=== PATIENT | female | born 1995 | race African-American/Black ===

== ENCOUNTER 2017-09-05 10:18 | Emergency (ER) | payer OTHER ==
[~2017-09-05] VITALS: Ht 167.6 cm; Wt 60.0 kg
[2017-09-05 10:22] VITALS: BP 100/56; PULSE 76; RESP 16; TEMP 98.6; O2SAT 98
[2017-09-05] MEDS ORDERED: [UNRECOGNIZED DRUG - REMARK] (10:35)
[2017-09-05] MEDS ORDERED: [UNRECOGNIZED DRUG - REMARK] (10:48)
--- NOTE | 2017-09-05 11:00 | PD ---
HPI Chief Complaint: Medical Clearance Time Seen by Provider: 10:42 Travel History International Travel<30 days: No Contact w/Intl Traveler<30days: No Traveled to known affect area: No History of Present Illness HPI The patient was seen and examined in the presence of the nurse. This patient complains of swelling in her feet and ankles. She's had it for several months. She denies injury or fever. No swelling of the upper extremities or abdomen. She says that she takes a medication for her heart but has no idea what it is. Prescribed by somebody in [place]. She is currently living here in [facility] with her grandmother. He reports that she has history of heart murmur. She denies chest pain or shortness of breath. Severity is mild to moderate. No alleviating factors. No exacerbating factors. PFSH Past Medical History Asthma: Yes Cardiovascular Problems: Yes (heart murmur) Influenza Vaccination: No ?: Not LMP: 08/22/17 Social History Alcohol Use: No Tobacco Use: No Substance Use: No Allergies-Medications (Allergen,Severity, Reaction): Coded Allergies: No Known Allergies (Unverified , 09/05/17) Reported Meds & Prescriptions Reported Meds & Active Scripts Active Reported [unk heart pill] DAILY [unk inhaler] Review of Systems General / Constitutional: No: Fever Eyes: No: Visual changes HENT: No: Headaches Cardiovascular: Positive: Edema, No: Chest Pain or Discomfort Respiratory: No: Shortness of Breath Gastrointestinal: No: Abdominal Pain Genitourinary: No: Dysuria Musculoskeletal: Positive: Edema, No: Pain Skin: No Rash Neurologic: No: Weakness Psychiatric: No: Depression Endocrine: No: Polydipsia Hematologic/Lymphatic: No: Easy Bruising Physical Exam Narrative GENERAL: Well-nourished, well-developed patient in no apparent distress. SKIN: Focused skin assessment reveals no rash and nodules. Skin is Warm and dry. HEAD: Atraumatic. Normocephalic. EYES: Pupils equal and round. No scleral icterus. No injection or drainage. ENT: No nasal bleeding or discharge. Mucous membranes pink and moist. NECK: Trachea midline. No JVD. CARDIOVASCULAR: Regular rate and rhythm. Prominent systolic murmur heard. RESPIRATORY: No accessory muscle use. Clear to auscultation. Breath sounds equal bilaterally. GASTROINTESTINAL: Abdomen soft, non-tender, nondistended. Hepatic and splenic margins not palpable. MUSCULOSKELETAL: No obvious deformities. No clubbing. No cyanosis. Symmetric edema of the distal half of the lower leg including ankle and foot. No erythema or warmth or calf tenderness. Edema is mild NEUROLOGICAL: Awake and alert. No obvious cranial nerve deficits. Motor grossly within normal limits. Normal speech. PSYCHIATRIC: Appropriate mood and affect; insight and judgment normal. Data Data Last Documented VS Vital Signs Date Time Temp Pulse Resp B/P (MAP) Pulse Ox O2 Delivery O2 Flow Rate FiO2 09/05/17 10:22 98.6 76 16 100/56 (71) 98 Orders Orders Iv Access Insert/Monitor (09/05/17 10:53) Complete Blood Count With Diff (09/05/17 10:53) Comprehensive Metabolic Panel (09/05/17 10:53) Beta Hcg (Quant/Titer) (09/05/17 10:53) Labs Laboratory Tests Test 09/05/17 11:00 White Blood Count 3.7 TH/MM3 Red Blood Count 4.08 MIL/MM3 Hemoglobin 10.2 GM/DL Hematocrit 31.7 % Mean Corpuscular Volume 77.7 FL Mean Corpuscular Hemoglobin 25.0 PG Mean Corpuscular Hemoglobin Concent 32.2 % Red Cell Distribution Width 16.2 % Platelet Count 411 TH/MM3 Mean Platelet Volume 6.9 FL Neutrophils (%) (Auto) 59.5 % Lymphocytes (%) (Auto) 19.9 % Monocytes (%) (Auto) 11.4 % Eosinophils (%) (Auto) 8.7 % Basophils (%) (Auto) 0.5 % Neutrophils # (Auto) 2.2 TH/MM3 Lymphocytes # (Auto) 0.7 TH/MM3 Monocytes # (Auto) 0.4 TH/MM3 Eosinophils # (Auto) 0.3 TH/MM3 Basophils # (Auto) 0.0 TH/MM3 CBC Comment DIFF FINAL Differential Comment Blood Urea Nitrogen 20 MG/DL Creatinine 0.84 MG/DL Random Glucose 73 MG/DL Total Protein 9.1 GM/DL Albumin 3.0 GM/DL Calcium Level 9.1 MG/DL Alkaline Phosphatase 55 U/L Aspartate Amino Transf (AST/SGOT) 24 U/L Alanine Aminotransferase (ALT/SGPT) 9 U/L Total Bilirubin 0.3 MG/DL Sodium Level 137 MEQ/L Potassium Level 4.0 MEQ/L Chloride Level 105 MEQ/L Carbon Dioxide Level 25.8 MEQ/L Anion Gap 6 MEQ/L Estimat Glomerular Filtration Rate 105 ML/MIN Human Chorionic Gonadotropin, Quant LESS THAN 1 MIU/ML MDM Medical Decision Making Medical Screen Exam Complete: Yes Emergency Medical Condition: Yes Medical Record Reviewed: Yes Differential Diagnosis Renal failure, liver failure, congestive heart failure Narrative Course I have reviewed the patient's electronic medical record. IV placed CBC shows minor anemia with normal platelet count Metabolic profile is normal LFTs are normal Beta hCG is negative Patient has chronic bilateral lower extremity edema with history of heart murmur. She is specifically denies ever using IV drugs multiple times have asked her. I don't have any clinical suspicion of acute endocarditis. This murmur is chronic and known to her. Stable for outpatient follow-up. Patient is now living in this area and should get a new family physician and records should be obtained and given to the new physician from her prior [place] physician detailing her cardiac condition Diagnosis Primary Impression: Leg edema Additional Instructions: The patient was advised to follow up with their physician and return if they worsen. Have low sodium diet Elevate legs Wear knee-high compression stockings Med/Other Pt SpecificInfo: Other Disposition: 01 DISCHARGE HOME Condition: Stable Taz Meza MD Sep 05, 2017 11:00
[2017-09-05 11:33] LABS: AUTOMATED NEUTROPHIL # 2.2 TH/MM3 (1.8-7.7); BASOPHIL % 0.5 % (0.0-2.0); EOSINOPHIL # 0.3 TH/MM3 (0-0.4); EOSINOPHIL % 8.7 % (0.0-4.0); HEMATOCRIT 31.7 % (35.0-46.0); HEMOGLOBIN 10.2 GM/DL (11.6-15.3); LYMPH % 19.9 % (9.0-44.0); LYMPHOCYTE # 0.7 TH/MM3 (1.0-4.8); MEAN CELL VOLUME 77.7 FL (80.0-100.0); MEAN CORPUSCULAR HGB CONC 32.2 % (32.0-36.0); MEAN PLATELET VOLUME 6.9 FL (7.0-11.0); MONO % 11.4 % (0.0-8.0); MONOCYTE # 0.4 TH/MM3 (0-0.9); NEUT % 59.5 % (16.0-70.0); PLATELET COUNT 411 TH/MM3 (150-450); RED BLOOD COUNT 4.08 MIL/MM3 (4.00-5.30); RED CELL DISTRIBUTION WIDTH 16.2 % (11.6-17.2); WHITE BLOOD COUNT 3.7 TH/MM3 (4.0-11.0)
[2017-09-05 11:49] LABS: AST (GOT) 24 U/L (16-38); BICARBONATE 25.8 MEQ/L (21.0-32.0); BLOOD UREA NITROGEN 20 MG/DL (7-18); CALCIUM 9.1 MG/DL (8.5-10.1); CHLORIDE 105 MEQ/L (98-107); CREATININE 0.84 MG/DL (0.50-1.00); GLOMERULAR FILTRATION RATE 105 ML/MIN (>89); GLUCOSE,RANDOM 73 MG/DL (74-106); SODIUM (NA) 137 MEQ/L (136-145)
[2017-09-05 11:50] LABS: ALT (GPT) 9 U/L (9-42)
[2017-09-05 11:54] LABS: ALKALINE PHOSPHATASE 55 U/L (45-117); TOTAL BILIRUBIN ADULT 0.3 MG/DL (0.2-1.0); TOTAL PROTEIN 9.1 GM/DL (6.4-8.2)
== END 2017-09-05 13:14 | disposition home or self-care (01) ==
LOC: NEPD 10:18
DX: R60.0 Localized edema (principal); J45.909 Unspecified asthma, uncomplicated; R01.1 Cardiac murmur, unspecified
CPT/HCPCS: 80053; 84702; 85025; 99283

== ENCOUNTER 2017-10-15 14:36 | Emergency (ER) | payer OTHER ==
[~2017-10-15] VITALS: Ht 167.6 cm; Wt 50.0 kg
[~2017-10-15 14:36] MED LIST: [UNRECOGNIZED DRUG - REMARK]; [UNRECOGNIZED DRUG - REMARK]
[2017-10-15 14:46] VITALS: BP 128/66; PULSE 99; RESP 16; TEMP 98.7; O2SAT 100
--- NOTE | 2017-10-15 16:30 | RADRPT ---
EXAM DATE/TIME: 10/15/2017 15:52 [facility] COMPARISON: No previous studies available for comparison. INDICATIONS : Chest pain and shortness of breath. MEDICAL HISTORY : Asthma. SURGICAL HISTORY : None. ENCOUNTER: Initial ACUITY: 3 days PAIN SCORE: 9/10 LOCATION: Bilateral chest FINDINGS: There is patchy airspace disease at the bases with air bronchogram formation noted. No effusion. Osse ous structures are intact. CONCLUSION: Basilar airspace disease. Augusto Urias MD on October 15, 2017 at 16:28 Board Certified Radiologist. This report was verified electronically.
--- NOTE | 2017-10-15 16:33 | PD ---
HPI Chief Complaint: Chest Pain Time Seen by Provider: 16:30 Travel History International Travel<30 days: No Contact w/Intl Traveler<30days: No Traveled to known affect area: No History of Present Illness HPI 22-year-old female, with history of asthma and heart murmur, presents to the emergency department with complaint of midsternal chest pain, that moves around , since . Denies injury. Denies nausea, vomiting. Denies recent illness to include cough, nasal congestion, ear pain. Says she feels hot sometimes otherwise has not taken her temperature to report a T-max. Denies sore throat. Denies shortness of breath. Rates pain 8/10. Pain is worse with inspiration, expiration, palpation, laughing, yawning. Has tried honey and taking a hot shower which helps with her symptoms. Does not have a primary care provider. No known allergies. History of asthma, heart murmur, depression. Has no other medical complaints. No other modifying factors or associated signs and symptoms. PFSH Past Medical History Asthma: Yes Cardiovascular Problems: Yes (heart murmur) ?: Not Social History Alcohol Use: No Tobacco Use: No Substance Use: No Allergies-Medications (Allergen,Severity, Reaction): Coded Allergies: No Known Allergies (Unverified , 10/15/17) Reported Meds & Prescriptions Reported Meds & Active Scripts Active Ibuprofen 800 Mg Tab 800 Mg PO Q8H PRN Robaxin (Methocarbamol) 500 Mg Tab 500 Mg PO QID PRN Ventolin Hfa 18 GM Inh (Albuterol Sulfate) 90 Mcg/Act Aer 2 Puff INH Q4-6H PRN Reported [unk heart pill] DAILY Review of Systems Except as stated in HPI: all other systems reviewed are Neg Physical Exam Narrative GENERAL: Well-nourished, well-developed black female patient, in no acute distress SKIN: Warm and dry. HEAD: Atraumatic. Normocephalic. EYES: Pupils equal and round. No scleral icterus. No injection or drainage. ENT: Mucosa pink and moist. NECK: Trachea midline. CHEST:Reproducible chest wall tenderness to the upper sternal and chest area; no crepitance or deformity. No retractions or use of accessory muscles. CARDIOVASCULAR: Regular rate and rhythm. Murmur appreciated. RESPIRATORY: No accessory muscle use. Clear to auscultation and decreased breath sounds in bilateral bases. Breath sounds equal bilaterally. No retractions or tachypnea. GASTROINTESTINAL: Abdomen soft, non-tender, nondistended. Hepatic and splenic margins not palpable. Bowel sounds are active 4 quadrants. MUSCULOSKELETAL: No obvious deformities. No clubbing. No cyanosis. No edema. NEUROLOGICAL: Awake and alert. Oriented 3. No obvious cranial nerve deficits. Motor grossly within normal limits. Normal speech. Moves all extremities. 5/5 strength to all extremities. PSYCHIATRIC: Appropriate mood and affect; insight and judgment normal. Data Data Last Documented VS Vital Signs Date Time Temp Pulse Resp B/P (MAP) Pulse Ox O2 Delivery O2 Flow Rate FiO2 10/15/17 16:59 100 21 10/15/17 14:46 98.7 99 16 128/66 (86) Orders Orders Electrocardiogram (10/15/17 ) Chest, Pa & Lat (10/15/17 ) Ketorolac Inj (Toradol Inj) (10/15/17 17:00) Albuterol-Ipratropium Neb (Duoneb Neb) (10/15/17 17:00) Methocarbamol (Robaxin) (10/15/17 17:00) MDM Medical Decision Making Medical Screen Exam Complete: Yes Emergency Medical Condition: Yes Medical Record Reviewed: Yes Differential Diagnosis Asthma exacerbation, chest wall pain, muscle strain, less likely cardiac related Narrative Course 22-year-old female with reproducible chest wall tenderness. She has history of asthma. She does not report shortness of breath or wheezing. Although on physical exam her lung sounds in bilateral lower bases sound decreased. I will order a breathing treatment to see if it helps increase her lung sounds. Toradol, Robaxin, DuoNeb 2 ordered. 1632: EKG with normal sinus rhythm. Chest x-ray concluded: Basilar airspace disease. 1731: Reexamination patient reports decreased chest wall pain and rates pain 4/ 10. Lungs are clear and equal throughout and with improved lung sounds in bilateral bases. I will treat the patient for suspected asthma exacerbation. Ventolin inhaler, ibuprofen, Robaxin, Deltasone prescribed for home. Instructed patient to follow up with primary care provider. Patient verbalizes understanding and agreement with treatment plan. Patient is medically cleared and stable for discharge. Discussed reasons to return to the emergency department. Patient agrees with treatment plan. The patients vital signs are stable and the patient is stable for outpatient follow-up and treatment. Patient discharged home, stable and in no acute distress. Diagnosis Primary Impression: Chest wall pain Additional Impression: Medication refill Referrals: Primary Care Physician Patient Instructions: Asthma (ED), Chest Wall Pain (ED), General Instructions Additional Instructions: Use albuterol inhaler as needed for shortness of breath and/or wheezing Take oral steroids as prescribed and complete full course Avoid asthma triggers such as smoking cigarettes, second hand smoke, dust, known allergens Ibuprofen or Tylenol as directed and as needed for pain Robaxin as prescribed and as needed for muscle spasms of the chest wall Heating pad and/or ice to affected area to help reduce pain Follow-up with primary care provider Return to emergency department immediately with worsening of symptoms Med/Other Pt SpecificInfo: Prescription(s) given Scripts Prednisone (Deltasone) 20 Mg Tab 40 MG PO DAILY for 5 Days, #10 TAB 0 Refills Prov: Laura Gonsalez 10/15/17 Ibuprofen (Ibuprofen) 800 Mg Tab 800 MG PO Q8H Y for PAIN SCALE 1 TO 10, #20 TAB 0 Refills Prov: Laura Gonsalez 10/15/17 Methocarbamol (Robaxin) 500 Mg Tab 500 MG PO QID Y for MUSCLE SPASM, #20 TAB 0 Refills Prov: Laura Gonsalez 10/15/17 Albuterol 18 GM Inh (Ventolin Hfa 18 GM Inh) 90 Mcg/Act Aer 2 PUFF INH Q4-6H Y for SOB/WHEEZING, #1 INHALER 0 Refills Prov: Laura Gonsalez 10/15/17 Disposition: 01 DISCHARGE HOME Condition: Stable Laura Gonsalez Oct 15, 2017 16:33
[2017-10-15 16:59] VITALS: O2SAT 100
[2017-10-15] MEDS ORDERED: METHOCARBAMOL 500 MG TAB PO ONE (17:00)
[2017-10-15] MEDS ORDERED: RESP: ALBUTEROL 2.5 MG/IPRATROPIUM 0.5 MG NEB (SCH) INH (17:00)
[2017-10-15] MEDS ORDERED: KETOROLAC TROMETHAMINE 60 MG/2 ML (IM) VIAL IM ONE (17:00)
[2017-10-15] MEDS ORDERED: IBUP1TAB7 PO (17:21)
[2017-10-15] MEDS ORDERED: VENTAER INH (17:21)
[2017-10-15] MEDS ORDERED: ROBA500T PO (17:21)
[2017-10-15] MEDS ORDERED: PRED-503 PO (17:33)
[2017-10-15 18:08] VITALS: PULSE 82; RESP 16; O2SAT 99
--- NOTE | 2017-10-16 12:19 | EKG ---
Date Performed: 10/15/2017 Time Performed: 16:26:42 PTAGE: 22 years EKG: Sinus rhythm NONSPECIFIC T-WAVE ABNORMALITY BORDERLINE ECG NO PREVIOUS TRACING DOCTOR: Dhruv Del Rosario Interpretating Date/Time 10/16/2017 12:16:18
== END 2017-10-15 18:10 | disposition home or self-care (01) ==
LOC: NEPD 14:36
DX: R07.89 Other chest pain (principal); J45.909 Unspecified asthma, uncomplicated; R01.1 Cardiac murmur, unspecified; F32.9 Major depressive disorder, single episode, unspecified; R94.31 Abnormal electrocardiogram [ECG] [EKG]; Z76.0 Encounter for issue of repeat prescription; Z79.51 Long term (current) use of inhaled steroids; Z79.899 Other long term (current) drug therapy
CPT/HCPCS: 71046; 93005; 94640; 94664; 96372; 99284; J1885

== ENCOUNTER 2017-11-20 18:42 | Inpatient (IN) | payer MEDICAID, OTHER ==
[~2017-11-20] VITALS: Ht 170.2 cm; Wt 57.0 kg
[~2017-11-20 18:42] MED LIST changes: +IBUP1TAB7 PO; +PRED-503 PO; +ROBA500T PO; +VENTAER INH; -[UNRECOGNIZED DRUG - REMARK]
[2017-11-20] MEDS ORDERED: IOHEXOL 350 MG/ML 10 ML VIAL (for RAD DIAG) IVCONTRAST ONE (18:43)
[2017-11-20 18:47] VITALS: BP 138/78; PULSE 116; RESP 30; O2SAT 100
[2017-11-20] MEDS ORDERED: KLOR8TAB PO (18:53)
[2017-11-20] MEDS ORDERED: FURO20TA PO (18:53)
[2017-11-20] MEDS ORDERED: SERT-132 PO (18:53)
[2017-11-20] MEDS ORDERED: OMEP20TA93 PO (18:53)
[2017-11-20] MEDS ORDERED: ROBA500T PO (18:53)
[2017-11-20] MEDS ORDERED: PANT20TA2 PO (18:53)
[2017-11-20] MEDS ORDERED: KETOROLAC TROMETHAMINE 30 MG/ML (IVP) VIAL IV PUSH ONE (19:00)
[2017-11-20] MEDS ORDERED: RESP: ALBUTEROL 2.5 MG/IPRATROPIUM 0.5 MG NEB (SCH) INH ONE (19:00)
--- NOTE | 2017-11-20 19:14 | PD ---
HPI Chief Complaint: Respiratory Distress Time Seen by Provider: 18:53 Travel History International Travel<30 days: No Contact w/Intl Traveler<30days: No Traveled to known affect area: No History of Present Illness HPI 22-year-old female complaint shortness of breath and left-sided chest pain. Patient states that the symptoms started suddenly about half an hour prior to arrival. Patient has history of asthma. Patient started having sharp stabbing pain localized to left chest. Patient denies any pain radiation. Patient denies palpitation nausea diaphoresis. Patient started having shortness of breath at the same time. Patient denies any injury. Patient denies any fever chills. Patient states that she has intermittent dry cough. Patient denies abdominal pain. Patient denies any nausea vomiting diarrhea. Patient denies any history of long distance travel recently. Patient is not on control pills. Patient has inhaler at home. Patient denies history of DVT or PE. Patient has history of heart murmur. Patient was seen by personal physician a year ago and was told she has heart murmur. No work Up has been done so far about the heart murmur. Patient was told that she has fluid retention and was given prescription for Lasix and potassium. [facility] Past Medical History Asthma: Yes Cardiovascular Problems: Yes Congestive Heart Failure: Yes Diminished Hearing: No Immunizations Current: Yes ?: Unknown : 0 Past Surgical History Surgical History: No Previous Surgery Social History Alcohol Use: Yes Tobacco Use: No Substance Use: No Allergies-Medications (Allergen,Severity, Reaction): Coded Allergies: No Known Allergies (Unverified , 11/20/17) Reported Meds & Prescriptions Reported Meds & Active Scripts Active Reported Robaxin (Methocarbamol) 500 Mg Tab 500 Mg PO QID Klor-Con 8 (Potassium Chloride) 8 Meq Tab 8 Meq PO DAILY Furosemide 20 Mg Tab 20 Mg PO DAILY Pantoprazole (Pantoprazole Sodium) 20 Mg Tab 20 Mg PO DAILY Sertraline (Sertraline HCl) 50 Mg Tab 50 Mg PO DAILY Omeprazole 20 Mg Tab 20 Mg PO DAILY Review of Systems General / Constitutional: No: Fever Eyes: No: Visual changes HENT: No: Headaches Cardiovascular: Positive: Chest Pain or Discomfort Respiratory: Positive: Shortness of Breath Gastrointestinal: No: Abdominal Pain Genitourinary: No: Dysuria Musculoskeletal: No: Pain Skin: No Rash Neurologic: No: Weakness Psychiatric: No: Depression Endocrine: No: Polydipsia Hematologic/Lymphatic: No: Easy Bruising Physical Exam Narrative GENERAL: Well-nourished, well-developed patient. SKIN: Focused skin assessment warm/dry. HEAD: Normocephalic. EYES: No scleral icterus. No injection or drainage. NECK: Supple, trachea midline. No JVD or lymphadenopathy. CARDIOVASCULAR: Regular rate and rhythm. Patient has grade 4/6 systolic ejection murmur. RESPIRATORY: Breath sounds equal bilaterally. No accessory muscle use. GASTROINTESTINAL: Abdomen soft, non-tender, nondistended. MUSCULOSKELETAL: No cyanosis, or edema. BACK: Nontender without obvious deformity. No CVA tenderness. Neurologic exam normal. Data Data Last Documented VS Vital Signs Date Time Temp Pulse Resp B/P (MAP) Pulse Ox O2 Delivery O2 Flow Rate FiO2 11/20/17 19:26 108 20 138/78 (98) 100 Nasal Cannula 2.00 Orders Orders Electrocardiogram (11/20/17 18:58) Complete Blood Count With Diff (11/20/17 18:58) Comprehensive Metabolic Panel (11/20/17 18:58) Creatine Kinase (Cpk) (11/20/17 18:58) Troponin I (11/20/17 18:58) Chest, Single Ap (11/20/17 18:58) Iv Access Insert/Monitor (11/20/17 18:58) Ecg Monitoring (11/20/17 18:58) Oximetry (11/20/17 18:58) Albuterol-Ipratropium Neb (Duoneb Neb) (11/20/17 19:00) Ketorolac Inj (Toradol Inj) (11/20/17 19:00) Ct Pulmonary Angiogram (11/20/17 19:11) Iohexol 350 Inj (Omnipaque 350 Inj) (11/20/17 18:43) Prothrombin Time / Inr (Pt) (11/20/17 20:58) Act Partial Throm Time (Ptt) (11/20/17 20:58) Us Leg Venous Doppler Bilat (11/20/17 21:13) Enoxaparin Inj (Lovenox Inj) (11/20/17 21:15) Admit Order (Ed Use Only) (11/20/17 21:28) Labs Laboratory Tests Test 11/20/17 19:15 11/20/17 21:20 White Blood Count 4.9 TH/MM3 Red Blood Count 3.44 MIL/MM3 Hemoglobin 7.8 GM/DL Hematocrit 24.7 % Mean Corpuscular Volume 71.7 FL Mean Corpuscular Hemoglobin 22.7 PG Mean Corpuscular Hemoglobin Concent 31.7 % Red Cell Distribution Width 20.2 % Platelet Count 328 TH/MM3 Mean Platelet Volume 7.1 FL Neutrophils (%) (Auto) 72.0 % Lymphocytes (%) (Auto) 18.5 % Monocytes (%) (Auto) 7.9 % Eosinophils (%) (Auto) 1.4 % Basophils (%) (Auto) 0.2 % Neutrophils # (Auto) 3.5 TH/MM3 Lymphocytes # (Auto) 0.9 TH/MM3 Monocytes # (Auto) 0.4 TH/MM3 Eosinophils # (Auto) 0.1 TH/MM3 Basophils # (Auto) 0.0 TH/MM3 CBC Comment DIFF FINAL Differential Comment Blood Urea Nitrogen 10 MG/DL Creatinine 0.74 MG/DL Random Glucose 84 MG/DL Total Protein 8.7 GM/DL Albumin 2.7 GM/DL Calcium Level 8.5 MG/DL Alkaline Phosphatase 59 U/L Aspartate Amino Transf (AST/SGOT) 23 U/L Alanine Aminotransferase (ALT/SGPT) 13 U/L Total Bilirubin 0.3 MG/DL Sodium Level 134 MEQ/L Potassium Level 3.6 MEQ/L Chloride Level 100 MEQ/L Carbon Dioxide Level 27.5 MEQ/L Anion Gap 7 MEQ/L Estimat Glomerular Filtration Rate 121 ML/MIN Total Creatine Kinase 26 U/L Troponin I LESS THAN 0.02 NG/ML MDM Medical Decision Making Medical Screen Exam Complete: Yes Emergency Medical Condition: Yes Interpretation(s) Last Impressions CT Angiography 11/20/171910 Signed Impressions: Service Date/Time: Monday, November 20, 2017 20:07 - CONCLUSION: 1. Filling defects involving segmental branches of the left lower lobe and possibly the right upper lobe consistent with small peripheral pulmonary emboli. 2. Cardiomegaly. 3. Bibasilar streakiness consistent with atelectasis and/or mild central pulmonary vascular congestion. Glen Keith MD Chest X-Ray 11/20/17 0111 Signed Impressions: Service Date/Time: Monday, November 20, 2017 19:07 - CONCLUSION: Minimal perihilar and bibasilar interstitial infiltrates consistent with possible viral pneumonitis or mild pulmonary vascular congestion. Clinical correlation is recommended. Glen Keith MD 2057 PM. CBC WBC 4.9. Hemoglobin 7.8 hematocrit 24.7. MCV 71.7. Sodium 134. Cardiac enzymes are normal. Differential Diagnosis Differential diagnosis including musculoskeletal, acute exacerbation of asthma, angina, SD, PE, pneumothorax. Narrative Course 22-year-old female with chest pain and shortness of breath. History of asthma. Albuterol with Atrovent unit dose treatment 1. Lovenox 60 mg SQ given. Diagnosis Primary Impression: Pulmonary embolus Qualified Codes: I26.99 - Other pulmonary embolism without acute cor pulmonale Additional Impression: Heart murmur Angel Luis Delaney MD November 20, 2017 19:14
[2017-11-20 19:26] VITALS: BP 138/78; PULSE 108; RESP 20; O2SAT 100
--- NOTE | 2017-11-20 19:32 | RADRPT ---
EXAM DATE/TIME: 11/20/2017 19:07 [facility] COMPARISON: No previous studies available for comparison. INDICATIONS : Chest pain and shortness of breath. MEDICAL HISTORY : Asthma. Heart murmur. SURGICAL HISTORY : None. ENCOUNTER: Initial ACUITY: 1 day PAIN SCORE: 6/10 LOCATION: Bilateral chest FINDINGS: Minimal perihilar and bibasilar interstitial infiltrates consistent with possible viral pneumonitis o r mild pulmonary vascular congestion. Clinical correlation is recommended. The cardiac silhouette is minimally prominent. CONCLUSION: Minimal perihilar and bibasilar interstitial infiltrates consistent with possible viral pneumonitis o r mild pulmonary vascular congestion. Clinical correlation is recommended. Glen Keith MD on November 20, 2017 at 19:28 Board Certified Radiologist. This report was verified electronically.
[2017-11-20 19:35] LABS: AUTOMATED NEUTROPHIL # 3.5 TH/MM3 (1.8-7.7); BASOPHIL % 0.2 % (0.0-2.0); EOSINOPHIL # 0.1 TH/MM3 (0-0.4); EOSINOPHIL % 1.4 % (0.0-4.0); HEMATOCRIT 24.7 % (35.0-46.0); HEMOGLOBIN 7.8 GM/DL (11.6-15.3); LYMPH % 18.5 % (9.0-44.0); LYMPHOCYTE # 0.9 TH/MM3 (1.0-4.8); MEAN CELL VOLUME 71.7 FL (80.0-100.0); MEAN CORPUSCULAR HEMOGLOBIN 22.7 PG (27.0-34.0); MEAN CORPUSCULAR HGB CONC 31.7 % (32.0-36.0); MEAN PLATELET VOLUME 7.1 FL (7.0-11.0); MONO % 7.9 % (0.0-8.0); MONOCYTE # 0.4 TH/MM3 (0-0.9); PLATELET COUNT 328 TH/MM3 (150-450); RED BLOOD COUNT 3.44 MIL/MM3 (4.00-5.30); RED CELL DISTRIBUTION WIDTH 20.2 % (11.6-17.2); WHITE BLOOD COUNT 4.9 TH/MM3 (4.0-11.0)
[2017-11-20 19:51] LABS: ALBUMIN 2.7 GM/DL (3.4-5.0); ALT (GPT) 13 U/L (9-42); AST (GOT) 23 U/L (16-38); BICARBONATE 27.5 MEQ/L (21.0-32.0); BLOOD UREA NITROGEN 10 MG/DL (7-18); CALCIUM 8.5 MG/DL (8.5-10.1); CHLORIDE 100 MEQ/L (98-107); CREATININE 0.74 MG/DL (0.50-1.00); GLOMERULAR FILTRATION RATE 121 ML/MIN (>89); GLUCOSE,RANDOM 84 MG/DL (74-106); SODIUM (NA) 134 MEQ/L (136-145)
[2017-11-20 19:55] LABS: ALKALINE PHOSPHATASE 59 U/L (45-117); TOTAL BILIRUBIN ADULT 0.3 MG/DL (0.2-1.0); TOTAL PROTEIN 8.7 GM/DL (6.4-8.2); TROPONIN I LESS THAN 0.02 NG/ML (0.02-0.05)
--- NOTE | 2017-11-20 20:44 | RADRPT ---
EXAM DATE/TIME: 11/20/2017 20:07 [facility] COMPARISON: CHEST SINGLE AP, November 20, 2017, 19:07. INDICATIONS : Shortness of breath with left sided chest pain. IV CONTRAST: 75 cc Omnipaque 350 (iohexol) IV RADIATION DOSE: 6.52 CTDIvol (mGy) MEDICAL HISTORY : Cardiovascular disease. Asthma SURGICAL HISTORY : None. ENCOUNTER: Initial ACUITY: 1 day PAIN SCALE: 5/10 LOCATION: Left chest TECHNIQUE: Volumetric scanning of the chest was performed using a pulmonary embolism protocol MIP images were re constructed. Using automated exposure control and adjustment of the mA and/or kV according to patien t size, radiation dose was kept as low as reasonably achievable to obtain optimal diagnostic quality images. DICOM format image data is available electronically for review and comparison. Follow-up recommendations for detected pulmonary nodules are based at a minimum on nodule size and pa tient risk factors according to Fleischner Society Guidelines. FINDINGS: PULMONARY ARTERIES: There are filling defects involving segmental branches of the left lower lobe and possibly the right upper lobe consistent with small peripheral pulmonary emboli. LUNGS: Streaky densities are noted within the lower lobes consistent with atelectasis and/or pulmonary vascu lar congestion. There is no consolidation or pneumothorax . No concerning pulmonary nodule is visual ized. PLEURAE: There is no pleural thickening or pleural effusion. MEDIASTINUM: There is good visualization of the great vessels of the middle mediastinum. No evidence of mediastin al or hilar adenopathy/mass. Cardiomegaly is noted. MUSCULOSKELETAL: Within normal limits for patient age. MISCELLANEOUS: The visualized upper abdominal organs demonstrate no acute abnormality. CONCLUSION: 1. Filling defects involving segmental branches of the left lower lobe and possibly the right upper l obe consistent with small peripheral pulmonary emboli. 2. Cardiomegaly. 3. Bibasilar streakiness consistent with atelectasis and/or mild central pulmonary vascular congestio nMadi Keith MD on November 20, 2017 at 20:34 Board Certified Radiologist. This report was verified electronically.
[2017-11-20] MEDS ORDERED: ENOXAPARIN SODIUM 60 MG/0.6 ML SYRINGE SQ ONE (21:15)
[2017-11-20] MEDS ORDERED: BISACODYL 10 MG SUPP RECTAL PRN (21:30)
[2017-11-20] MEDS ORDERED: LACTULOSE SYRUP 20 GM/30 ML CUP PO PRN (21:30)
[2017-11-20] MEDS ORDERED: SENNOSIDES 8.6 MG TAB PO PRN (21:30)
[2017-11-20] MEDS ORDERED: RESP: ALBUTEROL 2.5 MG/IPRATROPIUM 0.5 MG NEB (PRN) NEB (21:30)
[2017-11-20] MEDS ORDERED: ACETAMINOPHEN 325 MG TAB PO PRN (21:30)
[2017-11-20] MEDS ORDERED: SODIUM CHLORIDE 0.9% FLUSH 10 ML FLUSH IV FLUSH PRN (21:30)
[2017-11-20] MEDS ORDERED: MAGNESIUM HYDROXIDE SUSP 30 ML CUP PO PRN (21:30)
--- NOTE | 2017-11-20 21:32 | HHI.HP ---
[facility] Rell Chawla DO Admission Diagnosis Pulmonary embolus. Cardiac murmur. Diagnoses: (1) PE (pulmonary thromboembolism) Diagnosis: Principal (2) Chest pain Diagnosis: Principal (3) Fluid overload Diagnosis: Principal (4) Asthma Diagnosis: Principal (5) Anemia Diagnosis: Principal Travel History International Travel<30 Days: No Contact w/Intl Traveler <30 Da: No Traveled to Known Affected Are: No History of Present Illness This is a 22-year-old female with a PMH of Asthma who presented to the ER with complaints of SOB and chest pain starting earlier today. Has been using home inhaler w/ minimal relief. Reports associated non-productive cough, but no fever, chills or sick contacts. Pt denies h/o cardiac disease, but upon further questioning states she was told she has a heart murmur by a doctor in [place] approx 1yr ago. States she follows w/ PCP locally and was started on Lasix before , but she doesn't know why, denies lower extremity edema or h/o pleural effusions. Pt poor historian w/ regards to medical history , unable to provide me w/ many details. Doesn't think she's had an Echo in the past. On arrival, BP 138/70, HR 116, O2 sat 100% on RA. Hemoglobin 7.8, previously 10.2 on 09/05/2017. INR 1.1. CXR with minimal perihilar and basilar interstitial infiltrates, possible viral pneumonitis or pulmonary vascular congestion. CTA Pulm with filling defects involving segmental branches of left lower lobe and possibly right upper lobe consistent with small peripheral PE. Doppler LE negative for DVT. Denies h/o tobacco/drugs, denies OCP, denies recent travel/surgery, unclear about family h/o clots as she lives w/ grandmother but denies h/o clots in siblings. S/p Lovenox in ER. Review of Systems Except as stated in HPI: all other systems reviewed are Neg ROS: 14 point review of systems otherwise negative. Past Family Social History Past Medical History PMH: Asthma Past Surgical History PAST SURGICAL HISTORY: None Allergies: Coded Allergies: No Known Allergies (Unverified , 11/20/17) Family History PAST FAMILY HISTORY: Reviewed. No h/o DM or CAD Social History PAST SOCIAL HISTORY: Occasional alcohol. Negative for tobacco or drugs. Physical Exam Vital Signs Vital Signs Date Time Temp Pulse Resp B/P (MAP) Pulse Ox O2 Delivery O2 Flow Rate FiO2 11/20/17 19:26 108 20 138/78 (98) 100 Nasal Cannula 2.00 11/20/17 18:53 100 Room Air 11/20/17 18:47 116 30 138/78 (98) 100 Physical Exam PE: GENERAL: Pleasant soft-spoken young black female in no acute distress. HEENT: PERRLA, EOMI. No scleral icterus or conjunctival pallor. No lid lag or facial droop. CARDIOVASCULAR: Regular rate and rhythm. +systolic ejection murmur, 10/21. No chest tenderness to palpation. RESPIRATORY: No obvious rhonchi or wheezing. Clear to auscultation. Breath sounds equal bilaterally. GASTROINTESTINAL: Abdomen soft, non-tender, nondistended. BS normal. MUSCULOSKELETAL: Extremities without clubbing, cyanosis, or edema. No obvious deformities. NEUROLOGICAL: Awake, alert and oriented x4. No focal neurologic deficits. Moving both upper and lower extremities spontaneously. Laboratory Laboratory Tests Test 11/20/17 19:15 11/20/17 21:20 White Blood Count 4.9 Red Blood Count 3.44 Hemoglobin 7.8 Hematocrit 24.7 Mean Corpuscular Volume 71.7 Mean Corpuscular Hemoglobin 22.7 Mean Corpuscular Hemoglobin Concent 31.7 Red Cell Distribution Width 20.2 Platelet Count 328 Mean Platelet Volume 7.1 Neutrophils (%) (Auto) 72.0 Lymphocytes (%) (Auto) 18.5 Monocytes (%) (Auto) 7.9 Eosinophils (%) (Auto) 1.4 Basophils (%) (Auto) 0.2 Neutrophils # (Auto) 3.5 Lymphocytes # (Auto) 0.9 Monocytes # (Auto) 0.4 Eosinophils # (Auto) 0.1 Basophils # (Auto) 0.0 CBC Comment DIFF FINAL Differential Comment Blood Urea Nitrogen 10 Creatinine 0.74 Random Glucose 84 Total Protein 8.7 Albumin 2.7 Calcium Level 8.5 Alkaline Phosphatase 59 Aspartate Amino Transf (AST/SGOT) 23 Alanine Aminotransferase (ALT/SGPT) 13 Total Bilirubin 0.3 Sodium Level 134 Potassium Level 3.6 Chloride Level 100 Carbon Dioxide Level 27.5 Anion Gap 7 Estimat Glomerular Filtration Rate 121 Total Creatine Kinase 26 Troponin I LESS THAN 0.02 Result Diagram: 11/20/17191411/20/171914 Caprini VTE Risk Assessment Caprini VTE Risk Assessment: Mod/High Risk (score >= 2) Caprini Risk Assessment Model Point Value = 1 Point Value = 2 Point Value = 3 Point Value = 5 Age 41-60 Minor surgery BMI > 25 kg/m2 Swollen legs Varicose veins or History of unexplained or recurrent spontaneous Oral contraceptives or hormone replacement Sepsis (< 1 month) Serious lung disease, including pneumonia (< 1 month) Abnormal pulmonary function Acute myocardial infarction Congestive heart failure (< 1 month) History of inflammatory bowel disease Medical patient at bed rest Age 61-74 Arthroscopic surgery Major open surgery (> 45 min) Laparoscopic surgery (> 45 min) Malignancy Confined to bed (> 72 hours) Immobilizing plaster cast Central venous access Age >= 75 History of VTE Family history of VTE Factor V Leiden Prothrombin [id number] Lupus anticoagulant Anticardiolipin antibodies Elevated serum homocysteine Heparin-induced thrombocytopenia Other congenital or acquired thrombophilia Stroke (< 1 month) Elective arthroplasty Hip, pelvis, or leg fracture Acute spinal cord injury (< 1 month) Prophylaxis Regimen Total Risk Factor Score Risk Level Prophylaxis Regimen 0-1 Low Early ambulation 2 Moderate Order ONE of the following: *Sequential Compression Device (SCD) *Heparin 5000 units SQ BID 3-4 Higher Order ONE of the following medications: *Heparin 5000 units SQ TID *Enoxaparin/Lovenox 40 mg SQ daily (WT < 150 kg, CrCl > 30 mL/min) *Enoxaparin/Lovenox 30 mg SQ daily (WT < 150 kg, CrCl > 10-29 mL/min) *Enoxaparin/Lovenox 30 mg SQ BID (WT < 150 kg, CrCl > 30 mL/min) AND/OR *Sequential Compression Device (SCD) 5 or more Highest Order ONE of the following medications: *Heparin 5000 units SQ TID (Preferred with Epidurals) *Enoxaparin/Lovenox 40 mg SQ daily (WT < 150 kg, CrCl > 30 mL/min) *Enoxaparin/Lovenox 30 mg SQ daily (WT < 150 kg, CrCl > 10-29 mL/min) *Enoxaparin/Lovenox 30 mg SQ BID (WT < 150 kg, CrCl > 30 mL/min) AND *Sequential Compression Device (SCD) Assessment and Plan Problem List: (1) PE (pulmonary thromboembolism) ICD Code: I26.99 - Other pulmonary embolism without acute cor pulmonale (2) Chest pain ICD Code: R07.9 - Chest pain, unspecified (3) Fluid overload ICD Code: E87.70 - Fluid overload, unspecified (4) Asthma ICD Code: J45.909 - Unspecified asthma, uncomplicated (5) Anemia ICD Code: D64.9 - Anemia, unspecified Assessment and Plan A/P: 1. PE: c/o SOB, CTA Pulm w/ bilateral filling defects LLL and RUL, images reviewed by me, no h/o PE, no risk factors reported, no family h/o PE that pt is aware of. S/p Lovenox in ER, will continue w/ Lovenox 60mg sq q12h. Symbicort/DuoNeb. Check Echo to eval for cardiac strain. Consult Hematology as needed for hypercoagulable work up as no obvious cause for PE. 2. Chest Pain: likely secondary to above. Initial trop negative, check serial cardiac enzymes to eval for strain, Echo as above. Analgesics as needed. Telemetry. 3. Fluid Overload: reports h/o murmur 1yr ago and started on Lasix by PCP recently for unclear reasons, CTA Pulm w/ vascular congestion, no LE edema on exam. Check Echo as above to eval for heart failure. Consult Cardiology as needed for further evaluation. Monitor I/O. 4. Asthma: DuoNeb, Symbicort, monitor O2. 5. Anemia: Hgb 7.8, previously 10.2 on 09/05/17, monitor closely as starting Lovenox. Repeat Hgb in am. 6. DVT Prophylaxis: Lovenox for acute PE 7. Social work for d/c planning as needed. 8. Case discussed w/ ER physician at length, labs/records/imaging reviewed by me. Physician Certification 2 Midnight Certification Type: Admission for Inpatient Services Order for Inpatient Services The services are ordered in accordance with Medicare regulations or non- Medicare payer requirements, as applicable. In the case of services not specified as inpatient-only, they are appropriately provided as inpatient services in accordance with the 2-midnight benchmark. Estimated LOS (days): 2 days is the estimated time the patient will need to remain in the hospital, assuming treatment plan goals are met and no additional complications. Post-Hospital Plan: Not yet determined Aure Rogers MD November 20, 2017 21:32
[2017-11-20 21:43] LABS: INTERNATIONAL NORMALIZED RATIO 1.1 RATIO; PROTHROMBIN TIME - PATIENT 11.2 SEC (9.8-11.6)
[2017-11-20 22:07] VITALS: BP 118/86; PULSE 94; RESP 22; O2SAT 99
--- NOTE | 2017-11-20 22:14 | RADRPT ---
EXAM DATE/TIME: 11/20/2017 21:35 [facility] COMPARISON: No previous studies available for comparison. INDICATIONS : Shortness of breath. Pulmonary embolism. MEDICAL HISTORY : Cardiovascular disease. Asthma SURGICAL HISTORY : None. ENCOUNTER: Initial ACUITY: 1 day PAIN SCORE: 0/10 LOCATION: Bilateral legs. TECHNIQUE: Venous ultrasound of the left and right leg was performed from the inguinal ligament to the proximal calf. Real-time, color Doppler and spectral tracing, compression and augmentation techniques were us ed. FINDINGS: RIGHT LEG: There is normal compressibility of the deep venous system from the inguinal region to the proximal ca lf. No echogenic clot is seen in the lumen of the common femoral, femoral, popliteal, and posterior tibial veins. There is a normal response of the venous system to proximal and distal augmentation an d respiration. LEFT LEG: There is normal compressibility of the deep venous system from the inguinal region to the proximal ca lf. No echogenic clot is seen in the lumen of the common femoral, femoral, popliteal, and posterior tibial veins. There is a normal response of the venous system to proximal and distal augmentation an d respiration. CONCLUSION: No evidence of deep venous thrombosis within the lower extremities. Glen Keith MD on November 20, 2017 at 22:11 Board Certified Radiologist. This report was verified electronically.
[2017-11-21] VITALS (23 sets, daily range): BP systolic 107–148; BP diastolic 69–80; PULSE 83–122; RESP 16–26; TEMP 98–101.1; O2SAT 97–100
[2017-11-21 01:39] LABS: AUTOMATED NEUTROPHIL # 2.9 TH/MM3 (1.8-7.7); BASOPHIL % 0.2 % (0.0-2.0); EOSINOPHIL # 0.1 TH/MM3 (0-0.4); EOSINOPHIL % 1.6 % (0.0-4.0); HEMATOCRIT 23.2 % (35.0-46.0); HEMOGLOBIN 7.4 GM/DL (11.6-15.3); LYMPH % 19.9 % (9.0-44.0); LYMPHOCYTE # 0.9 TH/MM3 (1.0-4.8); MEAN CORPUSCULAR HEMOGLOBIN 23.1 PG (27.0-34.0); MEAN CORPUSCULAR HGB CONC 32.1 % (32.0-36.0); MEAN PLATELET VOLUME 6.9 FL (7.0-11.0); MONO % 10.5 % (0.0-8.0); MONOCYTE # 0.5 TH/MM3 (0-0.9); NEUT % 67.8 % (16.0-70.0); PLATELET COUNT 281 TH/MM3 (150-450); RED BLOOD COUNT 3.23 MIL/MM3 (4.00-5.30); RED CELL DISTRIBUTION WIDTH 19.7 % (11.6-17.2); WHITE BLOOD COUNT 4.3 TH/MM3 (4.0-11.0)
[2017-11-21 02:03] LABS: ALBUMIN 2.3 GM/DL (3.4-5.0); ALT (GPT) 12 U/L (9-42); AST (GOT) 17 U/L (16-38); BICARBONATE 28.2 MEQ/L (21.0-32.0); BLOOD UREA NITROGEN 12 MG/DL (7-18); CALCIUM 8.1 MG/DL (8.5-10.1); CHLORIDE 100 MEQ/L (98-107); CREATININE 0.79 MG/DL (0.50-1.00); GLOMERULAR FILTRATION RATE 112 ML/MIN (>89); GLUCOSE,RANDOM 116 MG/DL (74-106); SODIUM (NA) 136 MEQ/L (136-145)
[2017-11-21 02:08] LABS: ALKALINE PHOSPHATASE 50 U/L (45-117); TOTAL BILIRUBIN ADULT 0.2 MG/DL (0.2-1.0); TOTAL PROTEIN 7.3 GM/DL (6.4-8.2); TROPONIN I LESS THAN 0.02 NG/ML (0.02-0.05)
[2017-11-21] MEDS: BUDESONIDE-FORMOTEROL 160/4.5 MCG INHALER INH SCH ×2 (08:43→21:00)
[2017-11-21] MEDS: ENOXAPARIN SODIUM 60 MG/0.6 ML SYRINGE SQ SCH ×2 (08:43→22:19)
[2017-11-21] MEDS: DOCUSATE SODIUM 50 MG/SENNA 8.6 MG TAB PO SCH ×2 (08:43→21:00)
[2017-11-21] MEDS: SODIUM CHLORIDE 0.9% FLUSH 10 ML FLUSH IV FLUSH SCH ×2 (08:43→22:19)
--- NOTE | 2017-11-21 08:51 | HHI.PR ---
Subjective Remarks Patient is in bed. Says she feels a little better today. She is not using oxygen anymore she is saturating well on room air at this time. However she is not ambulating much. Edema in her legs improved significantly. No nausea or vomiting no diarrhea or constipation. Objective Vitals Vital Signs Date Time Temp Pulse Resp B/P (MAP) Pulse Ox O2 Delivery O2 Flow Rate FiO2 11/21/17 07:15 Room Air 11/21/17 05:55 84 11/21/17 05:00 83 11/21/17 04:00 84 11/21/17 04:00 Room Air 11/21/17 04:00 98.3 84 18 107/71 (83) 97 11/21/17 03:00 85 11/21/17 02:00 90 11/21/17 01:00 87 11/21/17 00:00 93 11/21/17 00:00 Room Air 11/21/17 00:00 98.0 93 20 119/71 (87) 99 11/20/17 23:28 11/20/17 22:07 94 22 118/86 (97) 99 Room Air 11/20/17 19:26 108 20 138/78 (98) 100 Nasal Cannula 2.00 11/20/17 18:53 100 Room Air 11/20/17 18:47 116 30 138/78 (98) 100 I/O 11/20/17 11/20/17 11/20/17 11/21/17 11/21/17 11/21/17 07:00 15:00 23:00 07:00 15:00 23:00 Intake Total 240 ml Balance 240 ml Intake Oral 240 ml # Voids 2 # Bowel Movements 0 Result Diagram: 11/21/17 0110 11/21/17 0110 Imaging Last Impressions Lower Extremity Ultrasound 11/20/173 Signed Impressions: Service Date/Time: Monday, November 20, 2017 21:35 - CONCLUSION: No evidence of deep venous thrombosis within the lower extremities. Glen Keith MD CT Angiography 11/20/17 1911 Signed Impressions: Service Date/Time: Monday, November 20, 2017 20:07 - CONCLUSION: 1. Filling defects involving segmental branches of the left lower lobe and possibly the right upper lobe consistent with small peripheral pulmonary emboli. 2. Cardiomegaly. 3. Bibasilar streakiness consistent with atelectasis and/or mild central pulmonary vascular congestion. Glen Keith MD Chest X-Ray 11/20/17 6976 Signed Impressions: Service Date/Time: Monday, November 20, 2017 19:07 - CONCLUSION: Minimal perihilar and bibasilar interstitial infiltrates consistent with possible viral pneumonitis or mild pulmonary vascular congestion. Clinical correlation is recommended. Glen Keith MD Objective Remarks GENERAL: Pleasant soft-spoken young black female in no acute distress. CARDIOVASCULAR: Regular rate and rhythm. +systolic ejection murmur, 10/21. No chest tenderness to palpation. RESPIRATORY: No obvious rhonchi or wheezing. Clear to auscultation. Breath sounds equal bilaterally. GASTROINTESTINAL: Abdomen soft, non-tender, nondistended. BS normal. MUSCULOSKELETAL: Extremities without clubbing, cyanosis, or edema. No obvious deformities. NEUROLOGICAL: Awake, alert and oriented x4. No focal neurologic deficits. Moving both upper and lower extremities spontaneously. A/P Problem List: (1) PE (pulmonary thromboembolism) ICD Code: I26.99 - Other pulmonary embolism without acute cor pulmonale (2) Chest pain ICD Code: R07.9 - Chest pain, unspecified (3) Fluid overload ICD Code: E87.70 - Fluid overload, unspecified (4) Asthma ICD Code: J45.909 - Unspecified asthma, uncomplicated (5) Anemia ICD Code: D64.9 - Anemia, unspecified Assessment and Plan PE: c/o SOB, CTA Pulm w/ bilateral filling defects LLL and RUL, images reviewed by me, no h/o PE, no risk factors reported, no family h/o PE that pt is aware of. S/p Lovenox in ER, will continue w/ Lovenox 60mg sq q12h. Symbicort/DuoNeb. Check Echo to eval for cardiac strain. Consult Hematology for hypercoagulable work up as no obvious cause for PE. Doppler ultrasound of lower extremities shows no DVT. Chest Pain: likely secondary to above. Initial trop negative, check serial cardiac enzymes to eval for strain, Echo as above. Analgesics as needed. Telemetry. Fluid Overload: reports h/o murmur 1yr ago and started on Lasix by PCP recently for unclear reasons, CTA Pulm w/ vascular congestion, no LE edema on exam. Check Echo as above to eval for heart failure. Consult Cardiology as needed for further evaluation. Monitor I/O. Asthma: DuoNeb, Symbicort, monitor O2. Anemia: Hgb 7.8, previously 10.2 on 09/05/17, monitor closely as starting Lovenox. Repeat Hgb in am. DVT Prophylaxis: Lovenox for acute PE CM consulted for DC planning as needed. Discussed with the patient, nurse, family at bedside Discharge plan :pending improvement and clearance from hematology oncology Patrizia Mcguire MD November 21, 2017 08:51
--- NOTE | 2017-11-21 10:44 | EKG ---
Date Performed: 11/20/2017 Time Performed: 19:18:04 PTAGE: 22 years EKG: SINUS TACHYCARDIA NONSPECIFIC T-WAVE ABNORMALITY ABNORMAL RHYTHM ECG Since the PREVIOUS TRACING , no significant change noted PREVIOUS TRACIN10/15/2017 16.26 DOCTOR: Dhruv Del Rosario Interpretating Date/Time 11/21/2017 10:42:01
[2017-11-21] MEDS: ACETAMINOPHEN/HYDROcodone 325 MG/5 MG TAB PO PRN (19:22)
[2017-11-22] VITALS (18 sets, daily range): BP systolic 96–126; BP diastolic 55–78; PULSE 71–110; RESP 16–40; TEMP 97.7–101.6; O2SAT 98–100
--- NOTE | 2017-11-22 07:11 | MB ---
cc: Shyanne Nelson MD DATE: 11/22/2017 CHIEF COMPLAINT: Pulmonary embolism. HISTORY OF PRESENT ILLNESS: Ms. Wetzel is a 22-year-old lady with a history of asthma, who presented to the emergency room on 11/20/2017 with shortness of breath and chest pain of approximately 24 hours duration. She had been using her home inhaler with minimal relief. She also reported nonproductive cough. She denied fever, chills or sick contacts. On arrival to the emergency room, her blood pressure was 138/70, heart rate 116, oxygen saturation is 100% on room air. IMAGING STUDIES: Including CT angiography showed filling defects involving segmental branches of the left lower lobe and possibly the right upper lobe consistent with small peripheral pulmonary emboli, cardiomegaly. Bibasilar streaking is consistent with atelectasis and/or central pulmonary vascular congestion. Bilateral lower extremity ultrasound with no evidence of DVT within the lower extremities. LABORATORY STUDIES: White blood cell count of 4.9; hemoglobin 7.8; platelet count of 328,000. Chemistry studies with total bilirubin of 0.2, AST 17, ALT 12, alkaline phosphatase is 50. Total protein 7.3, albumin 2.3. Troponin is less than 0.2. Creatinine is within normal limits at 0.79. ROS as above in HPI. All other ROS negative. PAST MEDICAL HISTORY: Asthma. PAST SURGICAL HISTORY: None. ALLERGIES: NO KNOWN DRUG ALLERGIES. FAMILY HISTORY: The patient reports that she believes that her aunt has a history of clots. SOCIAL HISTORY: The patient reports occasional social alcohol use. No tobacco or illegal drug use. She is currently going to school. PHYSICAL EXAMINATION: GENERAL: Well-developed, well-nourished lady, in no distress. HEENT: PERRLA, EOMI. No scleral icterus. CARDIOVASCULAR: Regular rate and rhythm with no murmurs. RESPIRATORY: Clear to auscultation bilaterally. ABDOMEN: Soft, nontender, and nondistended. Bowel sounds present. EXTREMITIES: With no edema. NEUROLOGIC: Grossly nonfocal. PSYCHIATRIC: Appropriate mood and affect. ASSESSMENT AND PLAN: 1. Pulmonary embolism, appears to be unprovoked with no recent hospital admissions, surgery, travel, illnesses. She has no personal history of blood clots. She is currently on Lovenox 60 mg subcutaneously every 12 hours. We will order echo for further evaluation. 2. Anemia. We will perform anemia workup including iron studies, vitamin B12 and folate. She will likely need indefinite anticoagulation given unprovoked pulmonary embolism. Discussed options for anticoagulation in the outpatient setting, including Coumadin, apixaban and rivaroxaban. Discuss risks versus benefits of each medication. Discussed that apixaban with studies that show less serious bleeds than warfarin and this would be the ideal medication to take in the outpatient setting. I discussed with the patient that she would need to avoid while on this medicine. She voiced understanding. Inpatient hematology service will continue to follow. MD PATRICK Bhakta/ELISABETH , 06:51 AM , 07:10 AM [facility]
--- NOTE | 2017-11-22 07:45 | HHI.PR ---
Subjective Remarks Follow-up pulmonary embolism/cardiomyopathy in young female Patient is in bed says she does not have any shortness of breath at this time. Says she has some intermittent chest pain with deep inspiration. Denies fever or chills. Objective Vitals Vital Signs Date Time Temp Pulse Resp B/P (MAP) Pulse Ox O2 Delivery O2 Flow Rate FiO2 11/22/17 06:00 76 11/22/17 05:00 87 11/22/17 04:00 98.2 82 16 105/64 (78) 100 11/22/17 04:00 82 11/22/17 03:00 71 11/22/17 02:00 80 11/22/17 01:00 78 11/22/17 00:00 98.4 76 18 96/55 (69) 100 11/22/17 00:00 76 11/21/17 23:00 91 11/21/17 22:00 99 11/21/17 21:00 110 11/21/17 20:22 16 11/21/17 20:00 101.1 116 26 148/80 (102) 98 11/21/17 20:00 98 Nasal Cannula 2.00 11/21/17 20:00 98 Nasal Cannula 2.00 11/21/17 20:00 116 11/21/17 18:00 122 11/21/17 17:00 106 11/21/17 16:00 98.1 102 16 127/75 (92) 100 11/21/17 16:00 97 11/21/17 15:00 96 11/21/17 14:00 100 11/21/17 13:00 102 11/21/17 12:00 98.2 98 16 118/69 (85) 99 11/21/17 12:00 101 11/21/17 11:00 100 11/21/17 10:00 104 11/21/17 09:00 104 11/21/17 08:00 98.3 99 16 118/71 (87) 100 11/21/17 08:00 104 I/O 11/21/17 11/21/17 11/21/17 11/22/17 11/22/17 11/22/17 07:00 15:00 23:00 07:00 15:00 23:00 Intake Total 240 ml 720 ml 480 ml Output Total 550 ml Balance 240 ml 170 ml 480 ml Intake Oral 240 ml 720 ml 480 ml Output Urine Total 550 ml # Voids 2 2 # Bowel Movements 0 1 Result Diagram: 11/21/17 0110 11/21/17 0110 Imaging Last Impressions Lower Extremity Ultrasound 11/20/172112 Signed Impressions: Service Date/Time: Monday, November 20, 2017 21:35 - CONCLUSION: No evidence of deep venous thrombosis within the lower extremities. Glen Keith MD CT Angiography 11/20/17 191 Signed Impressions: Service Date/Time: Monday, November 20, 2017 20:07 - CONCLUSION: 1. Filling defects involving segmental branches of the left lower lobe and possibly the right upper lobe consistent with small peripheral pulmonary emboli. 2. Cardiomegaly. 3. Bibasilar streakiness consistent with atelectasis and/or mild central pulmonary vascular congestion. Glen Keith MD Chest X-Ray 11/20/171857 Signed Impressions: Service Date/Time: Monday, November 20, 2017 19:07 - CONCLUSION: Minimal perihilar and bibasilar interstitial infiltrates consistent with possible viral pneumonitis or mild pulmonary vascular congestion. Clinical correlation is recommended. Glen Keith MD Objective Remarks GENERAL: Pleasant soft-spoken young black female in no acute distress. CARDIOVASCULAR: Regular rate and rhythm. +systolic ejection murmur, 4/6. No chest tenderness to palpation. RESPIRATORY: No obvious rhonchi or wheezing. Clear to auscultation. Breath sounds equal bilaterally. GASTROINTESTINAL: Abdomen soft, non-tender, nondistended. BS normal. MUSCULOSKELETAL: Extremities without clubbing, cyanosis, or edema. No obvious deformities. NEUROLOGICAL: Awake, alert and oriented x4. No focal neurologic deficits. Moving both upper and lower extremities spontaneously. A/P Problem List: (1) PE (pulmonary thromboembolism) ICD Code: I26.99 - Other pulmonary embolism without acute cor pulmonale (2) Chest pain ICD Code: R07.9 - Chest pain, unspecified (3) Fluid overload ICD Code: E87.70 - Fluid overload, unspecified (4) Asthma ICD Code: J45.909 - Unspecified asthma, uncomplicated (5) Anemia ICD Code: D64.9 - Anemia, unspecified Assessment and Plan PE, unprovoked: c/o SOB, CTA Pulm w/ bilateral filling defects LLL and RUL, images reviewed by me, no h/o PE, no risk factors reported, no family h/o PE that pt is aware of. S/p Lovenox in ER, will continue w/ Lovenox 60mg sq q12h. Symbicort/DuoNeb. Check Echo to eval for cardiac strain. Consult Hematology for hypercoagulable work up as no obvious cause for PE. Patient with unprovoked PE and no h/o PE Doppler ultrasound of lower extremities shows no DVT. 2D ECHO was ordered on admission and not done yet. 2D ECHO reordered yesterday and not done. Awaiting ECHO results Also discussed with hematology oncology. Will consult cardiology as patient was also with cardiomegaly. Also consult pulmonology. Chest Pain: likely secondary to above. Initial trop negative, check serial cardiac enzymes to eval for strain, Echo as above. Analgesics as needed. Telemetry. CP resolved. Fluid Overload: reports h/o murmur 1yr ago and started on Lasix by PCP recently for unclear reasons, CTA Pulm w/ vascular congestion, no LE edema on exam. Check Echo as above to eval for heart failure. Consult Cardiology as needed for further evaluation. Monitor I/O. Asthma: DuoNeb, Symbicort, monitor O2. Anemia: Hgb 7.8, previously 10.2 on 09/05/17, monitor closely as starting Lovenox. Repeat Hgb in am. DVT Prophylaxis: Lovenox for acute PE CM consulted for DC planning as needed. Discussed with the patient, nurse, family at bedside, hematology oncology . Discharge plan :pending improvement and clearance from hematology oncology/ cardiology and pulmonology Patrizia Mcguire MD November 22, 2017 07:45
[2017-11-22] MEDS: ACETAMINOPHEN/HYDROcodone 325 MG/5 MG TAB PO PRN (08:21)
[2017-11-22] MEDS: SODIUM CHLORIDE 0.9% FLUSH 10 ML FLUSH IV FLUSH SCH ×2 (08:22→21:28)
[2017-11-22] MEDS: ENOXAPARIN SODIUM 60 MG/0.6 ML SYRINGE SQ SCH ×2 (08:22→21:29)
[2017-11-22] MEDS: DOCUSATE SODIUM 50 MG/SENNA 8.6 MG TAB PO SCH ×2 (08:22→21:00)
[2017-11-22] MEDS: BUDESONIDE-FORMOTEROL 160/4.5 MCG INHALER INH SCH ×2 (08:22→21:30)
[2017-11-22 09:14] LABS: RETIC # 45.8 MIL/L (20.0-150.0); RETIC % 1.3 % (0.4-3.0)
[2017-11-22 09:42] LABS: IRON (FE) 14 MCG/DL (50-170)
[2017-11-22 10:07] LABS: % SATURATION IRON PROFILE 6.7 % (20-50); FERRITIN 202 NG/ML (8-252); FOLATE 19.4 NG/ML (3.1-17.5); TOTAL IRON BINDING CAPACITY 210 MCG/DL (250-450)
[2017-11-22] MEDS: ONDANSETRON HCL 4 MG/2 ML VIAL IVP PRN (12:00)
--- NOTE | 2017-11-22 14:05 | MB ---
cc: Chi Melgar DO DATE: 11/22/2017 REASON FOR CONSULTATION: Pulmonary embolism, cardiomegaly. HISTORY OF PRESENT ILLNESS: Aubrey Wetzel is a pleasant 22-year-old female who presented to [facility] Emergency Room on 11/20/2017 due to chest pain and shortness of breath. She states that she has been a little more short of breath lately, but seems to have progressively gotten worse over the past few days. She also started to have some chest pain, which appears more when taking a deep breath. Pain is also noted while coughing. She was found to have filling defects in segmental branches of her left lower lobe and possible right upper lobe consistent with a pulmonary embolus. On the CT, they also commented on possible cardiomegaly. I was asked to see the patient for the pulmonary embolus as well as the cardiomegaly. In seeing her, she states that she feels much better with decreased chest pain and shortness of breath. She states that she does not use control and has had no recent trauma. She states that she is somewhat sedentary, mostly lying around the house and not very active, although probably not enough to cause the pulmonary embolus. PAST MEDICAL HISTORY: Asthma. PAST SURGICAL HISTORY: Denies. ALLERGIES: NO KNOWN DRUG ALLERGIES. MEDICATIONS: 1. Robaxin 500 mg q.i.d. 2. Zoloft 50 mg daily. 3. Klor-Con 8 mEq daily. 4. Lasix 20 mg daily. 5. Omeprazole 20 mg daily. 6. Protonix 20 mg daily. FAMILY HISTORY: Denies premature coronary artery disease or sudden cardiac within the family. SOCIAL HISTORY: The patient denies tobacco or drug abuse. Occasionally drinks alcohol. REVIEW OF SYSTEMS: Fourteen systems were reviewed including osteopathic. Pertinent positives and negatives above, otherwise negative. PHYSICAL EXAMINATION: VITAL SIGNS: Temperature 98.5, heart rate 91, blood pressure 117/60, respirations 22, pulse oximetry 100% on 2 liters. GENERAL: The patient appears well in no acute distress. Alert, awake and oriented x 3. HEENT: Extraocular muscles intact. Mucous membranes moist. NECK: Supple. No JVD at 45 degrees. No carotid bruits heard bilaterally. Carotid upstroke is brisk in nature. HEART: Regular rate and rhythm. Positive first and second heart sounds were noted. No murmurs, gallops or rubs. LUNGS: Clear to auscultation bilaterally. No wheezes, rales or rhonchi. ABDOMEN: Soft, nontender, nondistended, no organomegaly noted. EXTREMITIES: Show trace edema. Femoral and distal pulses are intact bilaterally. NEUROLOGIC: No focal deficits. SKIN: Warm, dry and intact. OSTEOPATHIC: No kyphoscoliosis, lordosis or paraspinal tender points. LABORATORY DATA: Hemoglobin 7.4, hematocrit 23.2, platelets 281. Potassium 3.8, BUN 12, creatinine 0.79. Troponin negative x 3. IMPRESSIONS: 1. Bilateral pulmonary embolism, which appears unprovoked in nature. 2. Chest pain secondary to pulmonary embolus. 3. Asthma. 4. Anemia. RECOMMENDATIONS: 1. It appears that Ms. Wetzel has had bilateral pulmonary embolus, and this is most likely the cause of her chest pain as well as tachycardia. 2. Pulmonary embolus appears to be unprovoked. She will be further worked up by hematology for possible hypercoagulable state. They have discussed with her the consideration of anticoagulation and possibility of Eliquis. 3. We will check a 2-D echo to look at her overall left ventricular function, cardiac structure and possible valvulopathies. It will also be evaluated for possible right-sided strain, although her overall appearance, both is clinically and hemodynamically, do not make me believe that she will have right-sided strain. This will also be evaluated for the possibility of her cardiomegaly which, in reviewing her CT films, it is most likely an over call on the measurement. 4. Further recommendations will be made based on the hospital course. Thank you for allowing me to see Aubrey Wetzel. If there are any questions, please do not hesitate to call. Chi Melgar, VGP/ELISABETH , 01:37 PM , 02:04 PM
--- NOTE | 2017-11-22 20:35 | ECHRPT ---
Indication: Chest pain, unspecified CONCLUSIONS The left ventricular systolic function is normal with an estimated ejection fraction in the range of 55-60%. Possible bicuspid aortic valve . Trace aortic valve regurgitation. Increased gradient across the valve, possible mild aortic valve stenosis. There is mild tricuspid regurgitation. BP: 118 / 71 HR: 100 Rhythm: Sinus MEASUREMENTS (Male / Female) Normal Values Technical Quality:Good 2D ECHO LV Diastolic Diameter PLAX 4.3 cm 4.2 - 5.9 / 3.9 - 5.3 cm LV Systolic Diameter PLAX 3.0 cm IVS Diastolic Thickness 0.9 cm 0.6 - 1.0 / 0.6 - 0.9 cm LVPW Diastolic Thickness 0.9 cm 0.6 - 1.0 / 0.6 - 0.9 cm LV Relative Wall Thickness 0.4 LVOT Diameter 2.0 cm M-MODE Aortic Root Diameter MM 2.7 cm LA Systolic Diameter MM 3.3 cm LA Ao Ratio MM 1.2 AV Cusp Separation MM 1.7 cm DOPPLER AV Peak Velocity 242.0 cm/s AV Peak Gradient 23.4 mmHg AI Peak Velocity 402.7 cm/s AI Peak Gradient 64.9 mmHg AI Pressure Half Time 490.7 ms LVOT Peak Velocity 111.0 cm/s LVOT Peak Gradient 4.9 mmHg AV Area Cont Eq pk 1.4 cm Mitral E Point Velocity 92.3 cm/s Mitral A Point Velocity 64.7 cm/s Mitral E to A Ratio 1.4 LV E' Lateral Velocity 9.0 cm/s Mitral E to LV E' Lateral Ratio 10.3 LV E' Septal Velocity 10.8 cm/s Mitral E to LV E' Septal Ratio 8.5 TR Peak Velocity 266.0 cm/s TR Peak Gradient 28.3 mmHg Right Atrial Pressure 10.0 mmHg Pulmonary Artery Systolic Pressu 38.3 mmHg Right Ventricular Systolic Press 38.3 mmHg PV Peak Velocity 122.0 cm/s PV Peak Gradient 6.0 mmHg FINDINGS LEFT VENTRICLE The left ventricular systolic function is normal with an estimated ejection fraction in the range of 55-60%. Wall thickness is normal. Normal left ventricular size. RIGHT VENTRICLE Normal right ventricular size and systolic function. LEFT ATRIUM The left atrial size is normal. RIGHT ATRIUM The right atrial size is normal. ATRIAL SEPTUM Normal atrial septal thickness AORTA The aortic root and proximal ascending aorta are normal in size on limited imaging. MITRAL VALVE Structurally normal mitral valve. No mitral valve stenosis or regurgitation. AORTIC VALVE Possible bicuspid aortic valve Trace aortic valve regurgitation. Increased gradient across the valve, possible mild aortic valve stenosis. TRICUSPID VALVE Structurally normal tricuspid valve. There is mild tricuspid regurgitation. The estimated pulmonary arterial pressure is 38.3 mmHg. PULMONARY VALVE No pulmonary valve regurgitation or stenosis. VESSELS The inferior vena cava is normal in size. PERICARDIUM No pericardial effusion. Chi Melgar DO (Electronically Signed) Final Date:22 Nov 2017 20:34
[2017-11-22] MEDS: ACETAMINOPHEN/HYDROcodone 325 MG/10 MG TAB PO PRN (21:55)
--- NOTE | 2017-11-22 23:57 | PD.ONC.PN ---
Subjective Subjective Remarks Resting in bed in no distress. Objective Data Date Time Temp Pulse Resp B/P (MAP) Pulse Ox O2 Delivery O2 Flow Rate FiO2 11/22/17 16:00 81 11/22/17 16:00 97.7 87 20 96/62 (73) 98 11/22/17 15:00 90 11/22/17 14:00 88 11/22/17 13:00 78 11/22/17 12:00 109 11/22/17 12:00 98.4 84 22 113/64 (80) 99 11/22/17 11:00 110 11/22/17 10:00 102 11/22/17 09:34 16 11/22/17 09:00 94 11/22/17 08:00 98.5 91 22 117/60 (79) 100 11/22/17 08:00 78 11/22/17 07:30 Nasal Cannula 2.00 11/22/17 07:00 82 11/22/17 06:00 76 11/22/17 05:00 87 11/22/17 04:00 98.2 82 16 105/64 (78) 100 11/22/17 04:00 82 11/22/17 03:00 71 11/22/17 02:00 80 11/22/17 01:00 78 11/22/17 00:00 98.4 76 18 96/55 (69) 100 11/22/17 00:00 76 Result Diagram: 11/21/17 0110 11/21/17 0110 Laboratory Results Laboratory Tests Test 11/22/17 08:56 Reticulocyte Count 1.3 % Absolute Reticulocyte Count 45.8 MIL/L Iron Level 14 MCG/DL Total Iron Binding Capacity 210 MCG/DL Percent Iron Saturation 6.7 % Ferritin 202 NG/ML Vitamin B12 Level 400 PG/ML Folate 19.4 NG/ML Administered Medications Medications (Trade) Dose Ordered Sig/Yordan Route PRN Reason Start Time Stop Time Status Last Admin Dose Admin Enoxaparin Sodium (Lovenox Inj) 60 mg Q12H SQ 11/21/17 09:00 11/22/17 21:29 Sodium Chloride (NS Flush) 2 ml BID IV FLUSH 11/21/17 09:00 11/22/17 21:28 Ondansetron HCl (Zofran Inj) 4 mg Q6H PRN IVP NAUSEA OR VOMITING 11/20/17 21:30 11/22/17 12:00 Acetaminophen/ Hydrocodone Bitart ([place] 5-325 Mg) 1 tab Q4H PRN PO PAIN SCALE 3 TO 5 11/20/17 21:30 11/22/17 08:21 Acetaminophen/ Hydrocodone Bitart ([place] 10-325 Mg) 1 tab Q4H PRN PO PAIN SCALE 6 TO 10 11/20/17 21:30 11/22/17 21:55 Senna/Docusate Sodium (Nadya-Colace) 1 tab BID PO 11/21/17 09:00 11/22/17 08:22 Budesonide/ Formoterol Fumarate (Symbicort 160-4.5 Mcg Inh) 2 puff Q12HR INH 11/21/17 09:00 11/22/17 21:30 Objective Remarks GENERAL: Well-nourished, well-developed patient. SKIN: Warm and dry. HEAD: Normocephalic. EYES: No scleral icterus. No injection or drainage. RESPIRATORY: No accessory muscle use. GASTROINTESTINAL: nondistended. EXTREMITIES: No cyanosis, or edema. PSYCHIATRIC: Appropriate mood and affect; insight and judgment normal. Assessment/Plan Assessment 1. PE: currently on lovenox injections. Discussed risks vs benefits of outpatient anticoagulation with patient. Will plan to move forward with apixaban in the outpatient setting. Cardiology team has seen patient. ECHO pending. Pulmonary consult pending. Hypercoaguable work up pending. 2. Anemia: Iron studies suggestive of anemia of chronic disease. Patient reports heavy menstrual periods. She denies any constipation/dirrhea/bloody stools/dark stools. Will check stool for occult blood and hemoglobin electrophoresis. Shyanne Nelson MD November 22, 2017 23:57
[2017-11-23] VITALS (20 sets, daily range): BP systolic 103–118; BP diastolic 53–76; PULSE 72–100; RESP 18–22; TEMP 98.2–100.6; O2SAT 96–98
--- NOTE | 2017-11-23 07:34 | HHI.PR ---
Subjective Remarks Follow-up pulmonary embolism/cardiomyopathy in young female Plan for CT abdomen today. Patient says she does not have any edema in her legs and she is walking better. No chest pain at this time no shortness of breath. Holladay nauseated yesterday and not able to eat much. Also nausea in the morning however today he was able to eat something. No diarrhea or constipation. No fever or chills. Objective Vitals Vital Signs Date Time Temp Pulse Resp B/P (MAP) Pulse Ox O2 Delivery O2 Flow Rate FiO2 11/23/17 04:00 78 11/23/17 04:00 98.4 97 18 115/64 (81) 98 11/23/17 00:00 99.2 92 20 108/53 (71) 98 11/23/17 00:00 100 11/22/17 20:00 92 11/22/17 20:00 100 Room Air 11/22/17 20:00 101.6 101 40 126/78 (94) 100 11/22/17 16:00 81 11/22/17 16:00 97.7 87 20 96/62 (73) 98 11/22/17 15:00 90 11/22/17 14:00 88 11/22/17 13:00 78 11/22/17 12:00 109 11/22/17 12:00 98.4 84 22 113/64 (80) 99 11/22/17 11:00 110 11/22/17 10:00 102 11/22/17 09:34 16 11/22/17 09:00 94 11/22/17 08:00 98.5 91 22 117/60 (79) 100 11/22/17 08:00 78 I/O 11/22/17 11/22/17 11/22/17 11/23/17 11/23/17 11/23/17 06:59 14:59 22:59 06:59 14:59 22:59 Intake Total 480 ml 620 ml 50 ml Balance 480 ml 620 ml 50 ml Intake Oral 480 ml 620 ml 50 ml # Voids 2 3 1 # Bowel Movements 0 0 Result Diagram: 11/21/17 0110 11/21/17 0110 Imaging Last Impressions Lower Extremity Ultrasound 11/20/172112 Signed Impressions: Service Date/Time: Monday, November 20, 2017 21:35 - CONCLUSION: No evidence of deep venous thrombosis within the lower extremities. Glen Keith MD CT Angiography 11/20/17 191 Signed Impressions: Service Date/Time: Monday, November 20, 2017 20:07 - CONCLUSION: 1. Filling defects involving segmental branches of the left lower lobe and possibly the right upper lobe consistent with small peripheral pulmonary emboli. 2. Cardiomegaly. 3. Bibasilar streakiness consistent with atelectasis and/or mild central pulmonary vascular congestion. Glen Keith MD Chest X-Ray 11/20/171857 Signed Impressions: Service Date/Time: Monday, November 20, 2017 19:07 - CONCLUSION: Minimal perihilar and bibasilar interstitial infiltrates consistent with possible viral pneumonitis or mild pulmonary vascular congestion. Clinical correlation is recommended. Glen Keith MD Objective Remarks GENERAL: Pleasant soft-spoken young black female in no acute distress. CARDIOVASCULAR: Regular rate and rhythm. +systolic ejection murmur, 10/21. No chest tenderness to palpation. RESPIRATORY: No obvious rhonchi or wheezing. Clear to auscultation. Breath sounds equal bilaterally. GASTROINTESTINAL: Abdomen soft, non-tender, nondistended. BS normal. MUSCULOSKELETAL: Extremities without clubbing, cyanosis, or edema. No obvious deformities. NEUROLOGICAL: Awake, alert and oriented x4. No focal neurologic deficits. Moving both upper and lower extremities spontaneously. A/P Problem List: (1) PE (pulmonary thromboembolism) ICD Code: I26.99 - Other pulmonary embolism without acute cor pulmonale (2) Chest pain ICD Code: R07.9 - Chest pain, unspecified (3) Fluid overload ICD Code: E87.70 - Fluid overload, unspecified (4) Asthma ICD Code: J45.909 - Unspecified asthma, uncomplicated (5) Anemia ICD Code: D64.9 - Anemia, unspecified Assessment and Plan PE, unprovoked: c/o SOB, CTA Pulm w/ bilateral filling defects LLL and RUL, images reviewed by me, no h/o PE, no risk factors reported, no family h/o PE that pt is aware of. S/p Lovenox in ER, will continue w/ Lovenox 60mg sq q12h. Symbicort/DuoNeb. Echo to eval for cardiac strain. Consult Hematology for hypercoagulable work up as no obvious cause for PE. Patient with unprovoked PE and no h/o PE Doppler ultrasound of lower extremities shows no DVT. 2D ECHO reviewed and normal findings discussed with family and Dr Mchugh cardio Also discussed with hematology oncology. Will consult cardiology as patient was also with cardiomegaly n CT Seen by Dr Mchugh appreciate recs, ECHO reviewed cleared pt for DC from cards standpoint. Also consult pulmonology. Patient to have eliquis at DC work up for unprovoked PE in progress by hem/onc Plan for CT A/P Chest Pain: likely secondary to above. Initial trop negative, serial cardiac enzymes NL, Echo as above. Analgesics as needed. Telemetry. CP resolved. Fluid Overload: reports h/o murmur 1yr ago and started on Lasix by PCP recently for unclear reasons, CTA Pulm with vascular congestion, no LE edema on exam. Echo as above. Consult Cardiology as needed for further evaluation. Monitor I/O. Discussed with Dr Mchugh cleared patient for DC . Asthma: DuoNeb, Symbicort, monitor O2. Anemia: Hgb 7.8, previously 10.2 on 09/05/17, monitor closely as starting Lovenox. Repeat Hgb in am. DVT Prophylaxis: Lovenox for acute PE CM consulted for DC planning as needed. Discussed with the patient, nurse, family at bedside, hematology oncology, Dr Mchugh Discharge plan: pending improvement and clearance from hematology oncology/ and pulmonology Cleared by cardio for DC. Patrizia Mcguire MD November 23, 2017 07:34
[2017-11-23] MEDS: DOCUSATE SODIUM 50 MG/SENNA 8.6 MG TAB PO SCH ×2 (09:00→21:00)
[2017-11-23] MEDS: ONDANSETRON HCL 4 MG/2 ML VIAL IVP PRN ×2 (09:40→19:15)
[2017-11-23] MEDS: BUDESONIDE-FORMOTEROL 160/4.5 MCG INHALER INH SCH ×2 (09:40→21:56)
[2017-11-23] MEDS: ACETAMINOPHEN/HYDROcodone 325 MG/10 MG TAB PO PRN ×2 (09:40→16:27)
[2017-11-23] MEDS: ENOXAPARIN SODIUM 60 MG/0.6 ML SYRINGE SQ SCH ×2 (09:41→21:57)
[2017-11-23] MEDS: SODIUM CHLORIDE 0.9% FLUSH 10 ML FLUSH IV FLUSH SCH ×2 (09:41→21:55)
[2017-11-23] MEDS ORDERED: APIX5TAB PO (10:25)
--- NOTE | 2017-11-23 10:26 | HHI.DS ---
Discharge Summary Admission Date November 20, 2017 at 21:30 Discharge Date: November 24, 2017 Admitting Diagnosis Pulmonary embolus. Cardiac murmur. (1) PE (pulmonary thromboembolism) ICD Code: I26.99 - Other pulmonary embolism without acute cor pulmonale (2) Chest pain ICD Code: R07.9 - Chest pain, unspecified (3) Fluid overload ICD Code: E87.70 - Fluid overload, unspecified (4) Asthma ICD Code: J45.909 - Unspecified asthma, uncomplicated (5) Anemia ICD Code: D64.9 - Anemia, unspecified Procedures none Brief History - From Admission This is a 22-year-old female with a PMH of Asthma who presented to the ER with complaints of SOB and chest pain starting earlier today. Has been using home inhaler w/ minimal relief. Reports associated non-productive cough, but no fever, chills or sick contacts. Pt denies h/o cardiac disease, but upon further questioning states she was told she has a heart murmur by a doctor in [place] approx 1yr ago. States she follows w/ PCP locally and was started on Lasix before , but she doesn't know why, denies lower extremity edema or h/o pleural effusions. Pt poor historian w/ regards to medical history , unable to provide me w/ many details. Doesn't think she's had an Echo in the past. On arrival, BP 138/70, HR 116, O2 sat 100% on RA. Hemoglobin 7.8, previously 10.2 on 09/05/2017. INR 1.1. CXR with minimal perihilar and basilar interstitial infiltrates, possible viral pneumonitis or pulmonary vascular congestion. CTA Pulm with filling defects involving segmental branches of left lower lobe and possibly right upper lobe consistent with small peripheral PE. Doppler LE negative for DVT. Denies h/o tobacco/drugs, denies OCP, denies recent travel/surgery, unclear about family h/o clots as she lives w/ grandmother but denies h/o clots in siblings. S/p Lovenox in ER. CBC/BMP: 11/21/17 0110 11/21/17 0110 Significant Findings Laboratory Tests Test 11/20/17 19:15 11/20/17 21:20 11/21/17 01:10 11/21/17 07:20 Red Blood Count 3.44 MIL/MM3 (4.00-5.30) 3.23 MIL/MM3 (4.00-5.30) Hemoglobin 7.8 GM/DL (11.6-15.3) 7.4 GM/DL (11.6-15.3) Hematocrit 24.7 % (35.0-46.0) 23.2 % (35.0-46.0) Mean Corpuscular Volume 71.7 FL (80.0-100.0) 72.0 FL (80.0-100.0) Mean Corpuscular Hemoglobin 22.7 PG (27.0-34.0) 23.1 PG (27.0-34.0) Mean Corpuscular Hemoglobin Concent 31.7 % (32.0-36.0) Red Cell Distribution Width 20.2 % (11.6-17.2) 19.7 % (11.6-17.2) Neutrophils (%) (Auto) 72.0 % (16.0-70.0) Lymphocytes # (Auto) 0.9 TH/MM3 (1.0-4.8) 0.9 TH/MM3 (1.0-4.8) Total Protein 8.7 GM/DL (6.4-8.2) Albumin 2.7 GM/DL (3.4-5.0) 2.3 GM/DL (3.4-5.0) Sodium Level 134 MEQ/L (136-145) Troponin I LESS THAN 0.02 NG/ML LESS THAN 0.02 NG/ML LESS THAN 0.02 NG/ML Mean Platelet Volume 6.9 FL (7.0-11.0) Monocytes (%) (Auto) 10.5 % (0.0-8.0) Random Glucose 116 MG/DL (74-106) Calcium Level 8.1 MG/DL (8.5-10.1) Test 11/22/17 08:56 Iron Level 14 MCG/DL (50-170) Total Iron Binding Capacity 210 MCG/DL (250-450) Percent Iron Saturation 6.7 % (20-50) Folate 19.4 NG/ML (3.1-17.5) Imaging Last Impressions Lower Extremity Ultrasound 11/20/172112 Signed Impressions: Service Date/Time: Monday, November 20, 2017 21:35 - CONCLUSION: No evidence of deep venous thrombosis within the lower extremities. Glen Keith MD CT Angiography 11/20/171910 Signed Impressions: Service Date/Time: Monday, November 20, 2017 20:07 - CONCLUSION: 1. Filling defects involving segmental branches of the left lower lobe and possibly the right upper lobe consistent with small peripheral pulmonary emboli. 2. Cardiomegaly. 3. Bibasilar streakiness consistent with atelectasis and/or mild central pulmonary vascular congestion. Glen Keith MD Chest X-Ray 11/20/171857 Signed Impressions: Service Date/Time: Monday, November 20, 2017 19:07 - CONCLUSION: Minimal perihilar and bibasilar interstitial infiltrates consistent with possible viral pneumonitis or mild pulmonary vascular congestion. Clinical correlation is recommended. Glen Keith MD PE at Discharge GENERAL: Pleasant soft-spoken young black female in no acute distress. CARDIOVASCULAR: Regular rate and rhythm. +systolic ejection murmur, 10/21. No chest tenderness to palpation. RESPIRATORY: No obvious rhonchi or wheezing. Clear to auscultation. Breath sounds equal bilaterally. GASTROINTESTINAL: Abdomen soft, non-tender, nondistended. BS normal. MUSCULOSKELETAL: Extremities without clubbing, cyanosis, or edema. No obvious deformities. NEUROLOGICAL: Awake, alert and oriented x4. No focal neurologic deficits. Moving both upper and lower extremities spontaneously. Hospital Course PE, unprovoked: c/o SOB CTA Pulm reviewed with bilateral filling defects LLL and RUL. No h/o PE, no risk factors reported, no family h/o PE that patient is aware of. S/p Lovenox in ER, will continue with Lovenox 60mg sq q12h. Symbicort/DuoNeb. Echo to eval for cardiac strain reviewed and nl. Consult Hematology for hypercoagulable work up as no obvious cause for PE. Patient with unprovoked PE and no h/o PE Doppler ultrasound of lower extremities shows no DVT. 2D ECHO reviewed and normal findings discussed with family and Dr Mchugh cardio Also discussed with hematology oncology. Consult cardiology as patient was also with cardiomegaly on CTA. Seen by Dr Mchugh appreciate recs, ECHO reviewed cleared pt for DC from cards standpoint. Also consult pulmonology. Patient to have eliquis at DC . Discussed with the family and with the patient. work up for unprovoked PE in progress by hem/onc CT A/P reviewed adrenal cysts Chest Pain: likely secondary to above. Initial trop negative, serial cardiac enzymes NL, Echo as above. Analgesics as needed. Telemetry. CP resolved. Fluid Overload: reports h/o murmur 1yr ago and started on Lasix by PCP recently for unclear reasons, CTA Pulm with vascular congestion, no LE edema on exam. Echo as above. Consult Cardiology as needed for further evaluation. Monitor I/O. Discussed with Dr Mchugh cleared patient for DC . Asthma: DuoNeb, Symbicort, monitor O2. Anemia: Hgb 7.8, previously 10.2 on 09/05/17, monitor closely as starting Lovenox. Repeat Hgb in am. The patient is cleared by consultants for discharge. She improved significantly. To follow-up with PCP and consultants as outpatient. Pt Condition on Discharge: Stable Discharge Disposition: Discharge Home Discharge Time: > 30 minutes Discharge Instructions DIET: Follow Instructions for: As Tolerated, No Restrictions Activities you can perform: Regular-No Restrictions Follow up Referrals: Oncology/Hematology - 1 Week with Shyanne Nelson MD PCP Follow-up - 2-3 Days New Medications: Apixaban (Eliquis) 5 Mg Tab 5 MG PO BID for Blood Clot Prevention, #60 TAB 0 Refills Apixaban (Eliquis) 5 Mg Tab 10 MG PO BID for Blood Clot Prevention, #14 TAB 0 Refills Continued Medications: Furosemide (Furosemide) 20 Mg Tab 20 MG PO DAILY, #30 TAB 0 Refills Methocarbamol (Robaxin) 500 Mg Tab 500 MG PO QID for Muscle Spasm, TAB 0 Refills Omeprazole (Omeprazole) 20 Mg Tab 20 MG PO DAILY, #30 TAB 0 Refills Pantoprazole (Pantoprazole) 20 Mg Tab 20 MG PO DAILY for Reflux, #30 TAB 0 Refills Potassium Chloride ER (Klor-Con 8) 8 Meq Tab 8 MEQ PO DAILY for Electrolyte Replacement, #30 TAB 0 Refills Sertraline (Sertraline) 50 Mg Tab 50 MG PO DAILY, #30 TAB 0 Refills Patrizia Mcguire MD November 23, 2017 10:26
[2017-11-23] MEDS ORDERED: DIATRIZOATE MEGLUM/DIATRIZOATE SOD 9 ML CUP PO ONE (12:00)
--- NOTE | 2017-11-23 17:03 | MB ---
cc: Bere Blackburn MD DATE: 11/23/2017 REASON FOR CONSULTATION: Pulmonary embolus. HISTORY OF PRESENT ILLNESS: The patient is a 22-year-old female who presents to the emergency room with chest pain, increasing shortness of breath. CT angiogram with evidence of bilateral pulmonary emboli. The patient placed on anticoagulant therapy for same. Denies history of fever, chills, hemoptysis, TB or previous industrial exposure. PAST MEDICAL HISTORY: That of bronchial asthma. No previous surgeries. MEDICATIONS AT HOME: Robaxin, Zoloft, potassium, Lasix, omeprazole, Protonix, albuterol. ALLERGIES: NONE KNOWN TO MEDICATION. FAMILY HISTORY: Noncontributory. SOCIAL HISTORY: Does not smoke or use drugs. Drinks alcohol socially. REVIEW OF SYSTEMS: A 12-point review of systems is as per HPI and past history, otherwise negative. PHYSICAL EXAMINATION: GENERAL: The patient alert. VITAL SIGNS: Temperature 98, pulse 90, respiration 20, blood pressure 117/60, oxygen saturation 100% on 2 liters oxygen nasal cannula. HEENT: Unremarkable. Eyes without icterus. NECK: Without adenopathy, thyroid enlargement. Central trachea. CHEST: No dullness to percussion. Clear to auscultation. CARDIAC: PMI not appreciated. S1, S2 audible. No murmur, no rub. ABDOMEN: Lax, bowel sounds audible. EXTREMITIES: No clubbing, cyanosis or edema. LABORATORY DATA: White count 4.3, hemoglobin 7.4, hematocrit 23, platelets 281,000. Sodium 136, potassium 3.8, BUN 12, creatinine 0.79. CT angiogram with bilateral pulmonary emboli. IMPRESSION: 1. Bilateral pulmonary embolism. 2. Anemia. 3. Bronchial asthma seems stable at present. PLAN: 1. The patient is on anticoagulant therapy and appropriately so. 2. Bronchodilator therapy should be given as needed. 3. Hematology evaluation for hypercoagulable state, especially with the patient's pulmonary embolism without predisposition. We will follow her course along with you and, depending on progress, proceed further. Obviously, the patient's anemia needs evaluation as well. I do thank you for asking me to partake in Ms. Wetzel' care. Bere Blackburn MD [email or web address]/[email or web address] , 04:42 PM , 05:02 PM
--- NOTE | 2017-11-23 17:05 | PD.CARD.PN ---
Subjective Subjective Remarks No events overnight Objective Medications Current Medications Medications (Trade) Dose Ordered Sig/Yordan Route Start Time Stop Time Status Last Admin (Lovenox Inj) 60 mg Q12H SQ 11/21/17 09:00 11/23/17 09:41 (NS Flush) 2 ml UNSCH PRN IV FLUSH 11/20/17 21:30 (NS Flush) 2 ml BID IV FLUSH 11/21/17 09:00 11/23/17 09:41 (Zofran Inj) 4 mg Q6H PRN IVP 11/20/17 21:30 11/23/17 09:40 (Tylenol) 650 mg Q6H PRN PO 11/20/17 21:30 ([place] 5-325 Mg) 1 tab Q4H PRN PO 11/20/17 21:30 11/22/17 08:21 ([place] 10-325 Mg) 1 tab Q4H PRN PO 11/20/17 21:30 11/23/17 16:27 (Nadya-Colace) 1 tab BID PO 11/21/17 09:00 11/22/17 08:22 (Milk Of Magnesia Liq) 30 ml Q12H PRN PO 11/20/17 21:30 (Senokot) 17.2 mg Q12H PRN PO 11/20/17 21:30 (Dulcolax Supp) 10 mg DAILY PRN RECTAL 11/20/17 21:30 (Lactulose Liq) 30 ml DAILY PRN PO 11/20/17 21:30 (Symbicort 160-4.5 Mcg Inh) 2 puff Q12HR INH 11/21/17 09:00 11/23/17 09:40 (Duoneb Neb) 1 ampule Q4HR NEB PRN NEB 11/20/17 21:30 Vital Signs / I&O Vital Signs Date Time Temp Pulse Resp B/P (MAP) Pulse Ox O2 Delivery O2 Flow Rate FiO2 11/23/17 16:38 98.2 86 22 110/62 (78) 97 11/23/17 12:00 98.5 98 20 108/68 (81) 96 11/23/17 08:42 100.6 97 22 118/76 (90) 96 11/23/17 08:42 96 Room Air 11/23/17 04:00 78 11/23/17 04:00 98.4 97 18 115/64 (81) 98 11/23/17 00:00 99.2 92 20 108/53 (71) 98 11/23/17 00:00 100 11/22/17 20:00 92 11/22/17 20:00 100 Room Air 11/22/17 20:00 101.6 101 40 126/78 (94) 100 I/O 11/22/17 11/22/17 11/22/17 11/23/17 11/23/17 11/23/17 07:00 15:00 23:00 07:00 15:00 23:00 Intake Total 480 ml 620 ml 50 ml Balance 480 ml 620 ml 50 ml Intake Oral 480 ml 620 ml 50 ml # Voids 2 3 1 # Bowel Movements 0 0 Physical Exam GENERAL: NAD, AAOx3 SKIN: Warm and dry. HEAD: Atraumatic. Normocephalic. EYES: Pupils equal and round. No scleral icterus. No injection or drainage. ENT: No nasal bleeding or discharge. Mucous membranes pink and moist. NECK: Trachea midline. No JVD. CARDIOVASCULAR: Regular rate and rhythm. RESPIRATORY: No accessory muscle use. Clear to auscultation. Breath sounds equal bilaterally. GASTROINTESTINAL: Abdomen soft, non-tender, nondistended. Hepatic and splenic margins not palpable. MUSCULOSKELETAL: Extremities without clubbing, cyanosis, or edema. No obvious deformities. NEUROLOGICAL: Awake and alert. No obvious cranial nerve deficits. Motor grossly within normal limits. Five out of 5 muscle strength in the arms and legs. Normal speech. PSYCHIATRIC: Appropriate mood and affect; insight and judgment normal. Laboratory Laboratory Tests Test 11/23/17 10:55 Erythrocyte Sedimentation Rate 108 mm/hr C-Reactive Protein 1.70 MG/DL Assessment and Plan Problem List: (1) PE (pulmonary thromboembolism) ICD Codes: I26.99 - Other pulmonary embolism without acute cor pulmonale (2) Asthma ICD Codes: J45.909 - Unspecified asthma, uncomplicated (3) Chest pain ICD Codes: R07.9 - Chest pain, unspecified (4) Anemia ICD Codes: D64.9 - Anemia, unspecified (5) Heart murmur ICD Codes: R01.1 - Cardiac murmur, unspecified Status: Acute Assessment and Plan 1) Bilateral PE Further work up per Heme/Onc Echo not showing right sided strain 2) Asthma 3) Chest pain secondary to PE 4) EF 55-60%, possible bicuspid aortic valve with mild increased gradient across the valve Follow up outpatient for further work up Chi Melgar DO November 23, 2017 17:05
[2017-11-23] MEDS ORDERED: IOHEXOL 350 MG/ML 10 ML VIAL (for RAD DIAG) IVCONTRAST ONE (17:06)
--- NOTE | 2017-11-23 17:17 | RADRPT ---
EXAM DATE/TIME: 11/23/2017 16:57 [facility] COMPARISON: No previous studies available for comparison. INDICATIONS : Abdominal pain, Anemia IV CONTRAST: 80 cc Omnipaque 350 (iohexol) IV ORAL CONTRAST: Prescribed oral contrast ingested. RADIATION DOSE: 6.64 CTDIvol (mGy) MEDICAL HISTORY : Cardiovascular disease. SURGICAL HISTORY : None. ENCOUNTER: Initial ACUITY: 1 day PAIN SCALE: 2/10 LOCATION: Abdomen TECHNIQUE: Volumetric scanning of the abdomen and pelvis was performed. Using automated exposure control and ad justment of the mA and/or kV according to patient size, radiation dose was kept as low as reasonably achievable to obtain optimal diagnostic quality images. DICOM format image data is available electro nically for review and comparison. FINDINGS: Cardiomegaly with interstitial changes both lungs Liver, spleen, pancreas and adrenals unremarkable Symmetrical renal function No ascites or adenopathy Small cystic mass both adnexal regions largest on the right 1.8 cm. Trace pelvic fluid Review of bone windows reveals no bony abnormality. CONCLUSION: Small adnexal cyst bilaterally Cardiomegaly with mild interstitial changes No adenopathy No bone lesions. Orestes Hill MD FACR on November 23, 2017 at 17:12 Board Certified Radiologist. This report was verified electronically.
[2017-11-24] VITALS (19 sets, daily range): BP systolic 101–116; BP diastolic 62–86; PULSE 74–100; RESP 18–20; TEMP 98.1–99.8; O2SAT 97–100
[2017-11-24] MEDS: DOCUSATE SODIUM 50 MG/SENNA 8.6 MG TAB PO SCH (09:00)
[2017-11-24 09:46] LABS: PROTEIN C ACTIVITY 63 % (70 - 150); PROTEIN S ACTIVITY 56 % (50 - 160)
[2017-11-24] MEDS: ENOXAPARIN SODIUM 60 MG/0.6 ML SYRINGE SQ SCH (09:57)
[2017-11-24] MEDS: SODIUM CHLORIDE 0.9% FLUSH 10 ML FLUSH IV FLUSH SCH (09:57)
[2017-11-24] MEDS: BUDESONIDE-FORMOTEROL 160/4.5 MCG INHALER INH SCH (09:57)
[2017-11-24 11:14] LABS: BASOPHIL % 0.6 % (0.0-2.0); EOSINOPHIL # 0.1 TH/MM3 (0-0.4); EOSINOPHIL % 2.7 % (0.0-4.0); HEMATOCRIT 24.2 % (35.0-46.0); HEMOGLOBIN 7.8 GM/DL (11.6-15.3); LYMPH % 14.7 % (9.0-44.0); LYMPHOCYTE # 0.4 TH/MM3 (1.0-4.8); MEAN CELL VOLUME 70.9 FL (80.0-100.0); MEAN CORPUSCULAR HEMOGLOBIN 22.8 PG (27.0-34.0); MEAN CORPUSCULAR HGB CONC 32.1 % (32.0-36.0); MEAN PLATELET VOLUME 7.1 FL (7.0-11.0); MONO % 10.2 % (0.0-8.0); MONOCYTE # 0.3 TH/MM3 (0-0.9); NEUT % 71.8 % (16.0-70.0); PLATELET COUNT 326 TH/MM3 (150-450); RED BLOOD COUNT 3.41 MIL/MM3 (4.00-5.30); RED CELL DISTRIBUTION WIDTH 19.7 % (11.6-17.2); WHITE BLOOD COUNT 2.8 TH/MM3 (4.0-11.0)
--- NOTE | 2017-11-24 15:42 | HHI.PR ---
Subjective Remarks F/u unprovoked PE in young female The patient is in bed. No fever or chills. No n/v/d/c. Eating better. Ambulates without problems. Denies chest pain or sob. Objective Vitals Vital Signs Date Time Temp Pulse Resp B/P (MAP) Pulse Ox O2 Delivery O2 Flow Rate FiO2 11/24/17 12:00 98.5 94 18 110/62 (78) 99 11/24/17 10:00 100 11/24/17 09:00 94 11/24/17 08:47 99 Room Air 11/24/17 08:00 98.1 96 20 116/65 (82) 99 11/24/17 08:00 88 11/24/17 07:32 98.1 96 20 116/65 (82) 99 11/24/17 07:00 95 11/24/17 06:00 84 11/24/17 05:00 90 11/24/17 04:00 95 11/24/17 04:00 99.8 92 18 103/64 (77) 97 11/24/17 03:00 88 11/24/17 02:00 88 11/24/17 01:00 78 11/24/17 00:00 98.7 74 18 101/62 (75) 100 11/24/17 00:00 79 11/23/17 23:00 78 11/23/17 22:00 80 11/23/17 21:00 88 11/23/17 20:00 98.8 87 18 103/58 (73) 98 11/23/17 20:00 75 11/23/17 20:00 98 Room Air 11/23/17 19:00 72 11/23/17 18:00 98 11/23/17 16:38 98.2 86 22 110/62 (78) 97 11/23/17 16:00 88 I/O 11/23/17 11/23/17 11/23/17 11/24/17 11/24/17 11/24/17 07:00 15:00 23:00 07:00 15:00 23:00 Intake Total 50 ml 1740 ml 100 ml Balance 50 ml 1740 ml 100 ml Intake Oral 50 ml 1740 ml 100 ml # Voids 1 1 1 # Bowel Movements 0 0 Result Diagram: 11/24/17 1050 11/21/17 0110 Imaging Last Impressions Abdomen/Pelvis CT 11/23/17 0000 Signed Impressions: Service Date/Time: Thursday, November 23, 2017 16:57 - CONCLUSION: Small adnexal cyst bilaterally Cardiomegaly with mild interstitial changes No adenopathy No bone lesions. Orestes Hill MD FACR Lower Extremity Ultrasound 11/20/173 Signed Impressions: Service Date/Time: Monday, November 20, 2017 21:35 - CONCLUSION: No evidence of deep venous thrombosis within the lower extremities. Glen Keith MD CT Angiography 11/20/17 191 Signed Impressions: Service Date/Time: Monday, November 20, 2017 20:07 - CONCLUSION: 1. Filling defects involving segmental branches of the left lower lobe and possibly the right upper lobe consistent with small peripheral pulmonary emboli. 2. Cardiomegaly. 3. Bibasilar streakiness consistent with atelectasis and/or mild central pulmonary vascular congestion. Glen Keith MD Chest X-Ray 11/20/171857 Signed Impressions: Service Date/Time: Monday, November 20, 2017 19:07 - CONCLUSION: Minimal perihilar and bibasilar interstitial infiltrates consistent with possible viral pneumonitis or mild pulmonary vascular congestion. Clinical correlation is recommended. Glen Keith MD Objective Remarks GENERAL: Pleasant soft-spoken young black female in no acute distress. CARDIOVASCULAR: Regular rate and rhythm. +systolic ejection murmur, 4/6. No chest tenderness to palpation. RESPIRATORY: No obvious rhonchi or wheezing. Clear to auscultation. Breath sounds equal bilaterally. GASTROINTESTINAL: Abdomen soft, non-tender, nondistended. BS normal. MUSCULOSKELETAL: Extremities without clubbing, cyanosis, or edema. No obvious deformities. NEUROLOGICAL: Awake, alert and oriented x4. No focal neurologic deficits. Moving both upper and lower extremities spontaneously. Procedures none A/P Problem List: (1) PE (pulmonary thromboembolism) ICD Code: I26.99 - Other pulmonary embolism without acute cor pulmonale (2) Chest pain ICD Code: R07.9 - Chest pain, unspecified (3) Fluid overload ICD Code: E87.70 - Fluid overload, unspecified (4) Asthma ICD Code: J45.909 - Unspecified asthma, uncomplicated (5) Anemia ICD Code: D64.9 - Anemia, unspecified Assessment and Plan PE, unprovoked: c/o SOB CTA Pulm reviewed with bilateral filling defects LLL and RUL. No h/o PE, no risk factors reported, no family h/o PE that patient is aware of. S/p Lovenox in ER, will continue with Lovenox 60mg sq q12h. Symbicort/DuoNeb. Echo to eval for cardiac strain reviewed and nl. Consult Hematology for hypercoagulable work up as no obvious cause for PE. Patient with unprovoked PE and no h/o PE Doppler ultrasound of lower extremities shows no DVT. 2D ECHO reviewed and normal findings discussed with family and Dr Mchugh cardio Also discussed with hematology oncology. Consult cardiology as patient was also with cardiomegaly on CTA. Seen by Dr Mchugh appreciate recs, ECHO reviewed cleared pt for DC from cards standpoint. Also consult pulmonology. Patient to have eliquis at DC work up for unprovoked PE in progress by hem/onc CT A/P reviewed adrenal cysts Chest Pain: likely secondary to above. Initial trop negative, serial cardiac enzymes NL, Echo as above. Analgesics as needed. Telemetry. CP resolved. Fluid Overload: reports h/o murmur 1yr ago and started on Lasix by PCP recently for unclear reasons, CTA Pulm with vascular congestion, no LE edema on exam. Echo as above. Consult Cardiology as needed for further evaluation. Monitor I/O. Discussed with Dr Mchugh cleared patient for DC . Asthma: DuoNeb, Symbicort, monitor O2. Anemia: Hgb 7.8, previously 10.2 on 09/05/17, monitor closely as starting Lovenox. Repeat Hgb in am. DVT Prophylaxis: Lovenox for acute PE CM consulted for DC planning as needed. Discussed with the patient, nurse, family at bedside, hematology oncology, Dr Mchugh Discharge plan: pending improvement and clearance from hematology oncology/ and pulmonology Cleared by cardio for DC. Patrizia Mcguire MD November 24, 2017 15:42
--- NOTE | 2017-11-24 15:47 | HHI.PR ---
Subjective Remarks ALERT NO SOB O2 SAT ADEQUATE RA Objective Vital Signs Date Time Temp Pulse Resp B/P (MAP) Pulse Ox O2 Delivery O2 Flow Rate FiO2 11/24/17 12:00 98.5 94 18 110/62 (78) 99 11/24/17 10:00 100 11/24/17 09:00 94 11/24/17 08:47 99 Room Air 11/24/17 08:00 98.1 96 20 116/65 (82) 99 11/24/17 08:00 88 11/24/17 07:32 98.1 96 20 116/65 (82) 99 11/24/17 07:00 95 11/24/17 06:00 84 11/24/17 05:00 90 11/24/17 04:00 95 11/24/17 04:00 99.8 92 18 103/64 (77) 97 11/24/17 03:00 88 11/24/17 02:00 88 11/24/17 01:00 78 11/24/17 00:00 98.7 74 18 101/62 (75) 100 11/24/17 00:00 79 11/23/17 23:00 78 11/23/17 22:00 80 11/23/17 21:00 88 11/23/17 20:00 98.8 87 18 103/58 (73) 98 11/23/17 20:00 75 11/23/17 20:00 98 Room Air 11/23/17 19:00 72 11/23/17 18:00 98 11/23/17 16:38 98.2 86 22 110/62 (78) 97 11/23/17 16:00 88 I/O 11/23/17 11/23/17 11/23/17 11/24/17 11/24/17 11/24/17 06:59 14:59 22:59 06:59 14:59 22:59 Intake Total 50 ml 1740 ml 100 ml Balance 50 ml 1740 ml 100 ml Intake Oral 50 ml 1740 ml 100 ml # Voids 1 1 1 # Bowel Movements 0 0 Result Diagram: 11/24/17 1050 11/21/17 0110 Objective Remarks GENERAL: SKIN: Warm and dry. HEAD: Atraumatic. Normocephalic. EYES: Pupils equal and round. No scleral icterus. No injection or drainage. ENT: No nasal bleeding or discharge. Mucous membranes pink and moist. NECK: Trachea midline. No JVD. CARDIOVASCULAR: Regular rate and rhythm. RESPIRATORY: No accessory muscle use. Clear to auscultation. Breath sounds equal bilaterally. GASTROINTESTINAL: Abdomen soft, non-tender, nondistended. Hepatic and splenic margins not palpable. MUSCULOSKELETAL: Extremities without clubbing, cyanosis, or edema. No obvious deformities. NEUROLOGICAL: Awake and alert. No obvious cranial nerve deficits. Motor grossly within normal limits. Five out of 5 muscle strength in the arms and legs. Normal speech. PSYCHIATRIC: Appropriate mood and affect; insight and judgment normal. Assessment and Plan Assessment and Plan ASS PE PLAN PO ANTICOAGULATION OK FOR D/C OFFICE 2 WEEKS POST D/C Bere Blackburn MD November 24, 2017 15:47
--- NOTE | 2017-11-25 00:38 | PD.ONC.PN ---
Subjective Subjective Remarks Resting comfortably in bed. Patient seen at bedside evening of 11/24/2017. Objective Data Date Time Temp Pulse Resp B/P (MAP) Pulse Ox O2 Delivery O2 Flow Rate FiO2 11/24/17 16:58 98.6 93 18 112/86 (95) 97 11/24/17 16:00 94 11/24/17 15:00 95 11/24/17 14:00 96 11/24/17 13:00 90 11/24/17 12:00 98.5 94 18 110/62 (78) 99 11/24/17 12:00 96 11/24/17 11:00 93 11/24/17 10:00 100 11/24/17 09:00 94 11/24/17 08:47 99 Room Air 11/24/17 08:00 98.1 96 20 116/65 (82) 99 11/24/17 08:00 88 11/24/17 07:32 98.1 96 20 116/65 (82) 99 11/24/17 07:00 95 11/24/17 06:00 84 11/24/17 05:00 90 11/24/17 04:00 95 11/24/17 04:00 99.8 92 18 103/64 (77) 97 11/24/17 03:00 88 11/24/17 02:00 88 11/24/17 01:00 78 Result Diagram: 11/24/17 1050 11/21/17 0110 Laboratory Results Laboratory Tests Test 11/24/17 10:50 White Blood Count 2.8 TH/MM3 Red Blood Count 3.41 MIL/MM3 Hemoglobin 7.8 GM/DL Hematocrit 24.2 % Mean Corpuscular Volume 70.9 FL Mean Corpuscular Hemoglobin 22.8 PG Mean Corpuscular Hemoglobin Concent 32.1 % Red Cell Distribution Width 19.7 % Platelet Count 326 TH/MM3 Mean Platelet Volume 7.1 FL Neutrophils (%) (Auto) 71.8 % Lymphocytes (%) (Auto) 14.7 % Monocytes (%) (Auto) 10.2 % Eosinophils (%) (Auto) 2.7 % Basophils (%) (Auto) 0.6 % Neutrophils # (Auto) 2.0 TH/MM3 Lymphocytes # (Auto) 0.4 TH/MM3 Monocytes # (Auto) 0.3 TH/MM3 Eosinophils # (Auto) 0.1 TH/MM3 Basophils # (Auto) 0.0 TH/MM3 CBC Comment DIFF FINAL Differential Comment Objective Remarks GENERAL: Well-nourished, well-developed patient. SKIN: Warm and dry. HEAD: Normocephalic. EYES: No scleral icterus. No injection or drainage. NECK: Supple, trachea midline. No JVD or lymphadenopathy. RESPIRATORY: No accessory muscle use. NEUROLOGICAL: No obvious focal deficit. Awake, alert, and oriented x3. PSYCHIATRIC: Appropriate mood and affect; insight and judgment normal. Assessment/Plan Assessment 1. PE: currently on lovenox injections. Will continue with apixaban in the outpatient setting. Hypercoaguable work up pending. 2. Anemia: Iron studies suggestive of anemia of chronic disease. Patient reports heavy menstrual periods. She denies any constipation/dirrhea/bloody stools/dark stools. Pending hemoglobin electrophoresis. Shyanne Nelson MD November 25, 2017 00:38
[2017-11-25 03:49] LABS: ANTI-THROMBIN III ACT 96 (80-120)
[2017-11-25 07:52] LABS: BETA2 GLYCOPROTEIN I AB IGA LESS THAN 9.0 SAU (< OR = 20); BETA2 GLYCOPROTEIN I AB IGG LESS THAN 9.0 SGU (< OR = 20); CARDIOLIPIN AB IGA LESS THAN 11.0 APL (0-11)
== END 2017-11-24 17:28 | disposition home or self-care (01) | DRG 176 ==
LOC: NEPE 18:42 → NEDA 21:30 → HCIS 23:22
PROVIDERS: ADMIT Internal Medicine; ATTEND Internal Medicine
DX: I26.99 Other pulmonary embolism without acute cor pulmonale (principal); I42.9 Cardiomyopathy, unspecified; E87.70 Fluid overload, unspecified; R07.1 Chest pain on breathing; J45.909 Unspecified asthma, uncomplicated; D64.9 Anemia, unspecified; I51.7 Cardiomegaly; R01.1 Cardiac murmur, unspecified
CPT/HCPCS: 71045; 71275; 74177; 80053; 81240; 81241; 82550; 82607; 82728; 82746; 83020; 83540; 83550; 84484; 85025; 85044; 85300; 85303; 85306; 85610; 85652; 85730; 86140; 86146; 86147; 86148; 93005; 93306; 93970; 94664; 96374; J1650; J1885; J2405; Q9963; Q9967

== ENCOUNTER 2017-11-28 01:04 | Inpatient (IN) | payer MEDICAID ==
[~2017-11-28] VITALS: Ht 170.2 cm; Wt 57.0 kg
[2017-11-28] VITALS (15 sets, daily range): BP systolic 102–133; BP diastolic 56–75; PULSE 94–136; RESP 16–26; TEMP 97.3–100.2; O2SAT 97–100
[~2017-11-28 01:04] MED LIST changes: +APIX5TAB PO; +FURO20TA PO; -IBUP1TAB7 PO; +KLOR8TAB PO; +OMEP20TA93 PO; +PANT20TA2 PO; -PRED-503 PO; +SERT-132 PO; -VENTAER INH; -[UNRECOGNIZED DRUG - REMARK]
--- NOTE | 2017-11-28 01:40 | PD ---
HPI Chief Complaint: Cardiac Complaint Time Seen by Provider: 01:15 Travel History International Travel<30 days: No Contact w/Intl Traveler<30days: No Traveled to known affect area: No History of Present Illness HPI The patient is a 22 year old female who presents to the [facility] emergency department with a history of worsening left-sided chest pain and shortness of breath that began prior to arrival and awoke her from sound sleep. The patient reports that she was recently admitted to the hospital for pulmonary embolism. The patient was discharged on an oral anticoagulant that she does not know the name of, however she reports that she did get the prescription filled and has been taking it daily. The patient additionally reports that she has asthma. She reports that she is living with her grandmother and her nebulizer machine is with her aunt in [place]. Her primary care physician is Dr. Chawla. He had intermittent fevers and chills. She reports that she has had a nonproductive cough. She reports that she has left-sided chest pain that is worse with deep breath, coughing, or talking. She reports that the chest pain is sharp in character. Otherwise, review of systems she denies having any neck pain, abdominal pain, vomiting, diarrhea, urinary symptoms, or neurologic symptoms. [facility] Past Medical History Narrative Medical The patient's past medical history is significant for asthma, anemia, pulmonary embolism, pulmonary vascular edema on CTA during her recent admission to the hospital status post 2D echo that showed a possible bicuspid aortic valve, increased gradient across the valve, possible mild aortic valve stenosis. The patient's ejection fraction is 55-60%. Asthma: Yes Anxiety: Yes Cardiovascular Problems: Yes (PT DX WITH BLOOD CLOTS ON LUNGS THIS MONTH) Congestive Heart Failure: Yes Diminished Hearing: No Immunizations Current: Yes ?: Unknown : 0 Past Surgical History Narrative Surgical The patient's past surgical history is reportedly none. Social History Alcohol Use: Yes (OCC) Tobacco Use: No Substance Use: No Allergies-Medications (Allergen,Severity, Reaction): Coded Allergies: No Known Allergies (Unverified , 11/28/17) Reported Meds & Prescriptions Reported Meds & Active Scripts Active Eliquis (Apixaban) 5 Mg Tab 10 Mg PO BID Eliquis (Apixaban) 5 Mg Tab 5 Mg PO BID Reported Klor-Con 8 (Potassium Chloride) 8 Meq Tab 8 Meq PO DAILY Furosemide 20 Mg Tab 20 Mg PO DAILY Sertraline (Sertraline HCl) 50 Mg Tab 50 Mg PO DAILY Review of Systems Except as stated in HPI: all other systems reviewed are Neg General / Constitutional: Positive: Fever, Chills Eyes: No: Visual changes HENT: Positive: Congestion, No: Headaches Cardiovascular: Positive: Chest Pain or Discomfort, Dyspnea on exertion Respiratory: Positive: Cough, Shortness of Breath Gastrointestinal: No: Nausea, Vomiting, Diarrhea, Abdominal Pain Genitourinary: No: Dysuria Musculoskeletal: No: Pain Skin: No Rash Neurologic: No: Weakness, Focal Abnormalities, Change in Mentation, Slurred Speech, Sensory Disturbance Psychiatric: No: Depression Endocrine: No: Polydipsia Hematologic/Lymphatic: No: Easy Bruising Physical Exam Narrative General: The patient is a well-developed well-nourished female, uncomfortable appearing on examination with tachypnea. Head and Neck exam: Head is normocephalic atraumatic. Eyes: EOMI, pupils are equal round and reactive to light. Nose: Midline septum with pink mucous membranes Mouth: Dentition unremarkable. Moist mucus membranes. Posterior oropharynx is not erythematous. No tonsillar hypertrophy. Uvula midline. Airway patent. Neck: No palpable lymphadenopathy. No nuchal rigidity. No thyromegaly. Cardiovascular: Sinus tachycardia in the 1 teens without murmurs, gallops, or rubs. No pulse deficit to the extremities on simultaneous auscultation and palpation of her radial artery. No chest wall tenderness on palpation. Lungs: Clear to auscultation bilaterally. No wheezes, rhonchi, or rales. Abdomen: Soft, without tenderness to palpation in all 4 quadrants of the abdomen. No guarding, rebound, or rigidity. Normal bowel sounds are audible. No tenderness on palpation of McBurney's point. Negative Adames sign Extremities: No clubbing or cyanosis. The patient has trace edema bilateral lower extremities. 2+ pulses in all 4 extremities. Back: No spinous process tenderness to palpation. No costovertebral angle tenderness to palpation. Neurologic Exam: Grossly nonfocal. Skin Exam: No rash noted. Intact skin that is warm and dry. Data Data Last Documented VS Vital Signs Date Time Temp Pulse Resp B/P (MAP) Pulse Ox O2 Delivery O2 Flow Rate FiO2 11/28/17 03:53 108 24 105/59 (74) 99 Nasal Cannula 2.00 11/28/17 01:06 100.2 Orders Orders Electrocardiogram (11/28/17:28) Complete Blood Count With Diff (11/28/17:) Comprehensive Metabolic Panel (11/28/17:) Creatine Kinase (Cpk) (11/28/17:28) Ckmb (Isoenzyme) Profile (11/28/17:) Troponin I (11/28/17) Prothrombin Time / Inr (Pt) (11/28/17) Act Partial Throm Time (Ptt) (11/28/17:) Blood Culture (11/28/17) C-Reactive Protein (Crp) (11/28/17) Lipase (11/28/17:) Urinalysis - C+S If Indicated (11/28/17:) Magnesium (Mg) (11/28/17:) Thyroid Stimulating Hormone (11/28/17:) Chest, Single Ap (11/28/17:28) Iv Access Insert/Monitor (11/28/17:28) Ecg Monitoring (11/28/17:) Oximetry (11/28/17:) Ed Urine Pregnancytest Poc (11/28/17:28) Lactic Acid Sepsis Protocol (11/28/17:28) Sodium Chlorid 0.9% 500 Ml Inj (Ns 500 M (11/28/17 01:45) Sodium Chloride 0.9% Flush (Ns Flush) (11/28/17 02:15) Albuterol-Ipratropium Neb (Duoneb Neb) (11/28/17 02:15) Acetaminophen (Tylenol) (11/28/17 03:30) Ceftriaxone Inj (Rocephin Inj) (11/28/17 03:30) Azithromycin Inj (Zithromax Inj) (11/28/17 03:30) Type And Screen (11/28/17 03:34) Sodium Chlor 0.9% 250 Ml Inj (Ns 250 Ml (11/28/17 03:45) Admit Order (Ed Use Only) (11/28/17 04:11) Labs Laboratory Tests Test 11/28/17 01:25 11/28/17 01:33 White Blood Count 4.8 TH/MM3 Red Blood Count 3.33 MIL/MM3 Hemoglobin 7.5 GM/DL Hematocrit 23.8 % Mean Corpuscular Volume 71.5 FL Mean Corpuscular Hemoglobin 22.6 PG Mean Corpuscular Hemoglobin Concent 31.6 % Red Cell Distribution Width 20.3 % Platelet Count 351 TH/MM3 Mean Platelet Volume 7.4 FL Neutrophils (%) (Auto) 75.2 % Lymphocytes (%) (Auto) 13.9 % Monocytes (%) (Auto) 9.5 % Eosinophils (%) (Auto) 0.8 % Basophils (%) (Auto) 0.6 % Neutrophils # (Auto) 3.6 TH/MM3 Lymphocytes # (Auto) 0.7 TH/MM3 Monocytes # (Auto) 0.5 TH/MM3 Eosinophils # (Auto) 0.0 TH/MM3 Basophils # (Auto) 0.0 TH/MM3 CBC Comment DIFF FINAL Differential Comment Prothrombin Time 12.0 SEC Prothromb Time International Ratio 1.2 RATIO Activated Partial Thromboplast Time 27.3 SEC Blood Urea Nitrogen 11 MG/DL Creatinine 0.66 MG/DL Random Glucose 87 MG/DL Total Protein 7.8 GM/DL Albumin 2.4 GM/DL Calcium Level 7.5 MG/DL Magnesium Level 1.8 MG/DL Alkaline Phosphatase 60 U/L Aspartate Amino Transf (AST/SGOT) 52 U/L Alanine Aminotransferase (ALT/SGPT) 45 U/L Total Bilirubin 0.3 MG/DL Sodium Level 136 MEQ/L Potassium Level 3.7 MEQ/L Chloride Level 104 MEQ/L Carbon Dioxide Level 23.7 MEQ/L Anion Gap 8 MEQ/L Estimat Glomerular Filtration Rate 138 ML/MIN Total Creatine Kinase 25 U/L Troponin I LESS THAN 0.02 NG/ML C-Reactive Protein 3.03 MG/DL Lipase 119 U/L Thyroid Stimulating Hormone 3rd Gen 5.330 uIU/ML Lactic Acid Level 1.1 mmol/L MDM Medical Decision Making Medical Screen Exam Complete: Yes Emergency Medical Condition: Yes Medical Record Reviewed: Yes Interpretation(s) Last Impressions Chest X-Ray 11/28/17 0128 Signed Impressions: Service Date/Time: Tuesday, November 28, 2017 01:34 - CONCLUSION: 1. Minimal subsegmental basilar airspace disease. No effusion. Navi Barrow MD Differential Diagnosis Symptomatic anemia, versus chest pain related to pulmonary embolism, versus pneumonia, versus pulmonary infarct Narrative Course During the course of the patient's emergency department visit, the patient's history, examination, and differential diagnosis were reviewed with the patient. The patient was placed on a nurse monitoring with oximetry and frequent blood pressure monitoring. The patient had IV access obtained and blood work sent for analysis. The patient had an EKG done on arrival that shows a sinus tachycardia rate of 127, QRS duration 81 ms, QTC no acute ST segment elevation is noted. The patient reports having a T-max as high as 103 at home. The patient meets SIRS criteria with tachycardia and tachypnea. The patient also has temperature elevation on arrival of 100.2, blood cultures 2 were drawn, lactic acid was sent for analysis. The patient was initially provided a DuoNeb 1, Solu-Medrol 500 mg IV, Tylenol for suture elevation, ceftriaxone 1 g IV, Zithromax 500 IV. The patient's laboratory studies were reviewed and remarkable for a white count of 4.8, hemoglobin 7.5, platelets 351 with 75.2 neutrophils, 9.5 monocytes, CMP is remarkable for a calcium of 7.5, AST 52, ALT 45, cardiac enzymes within normal limits, C-reactive protein is elevated at 3.03, albumin 2.4, lipase 119, TSH is elevated at 5.33, lactic acid is 1.1, PT 12, PTT 27.3 Radiology studies were reviewed and remarkable for a chest x-ray that shows minimal subsegmental basilar airspace disease, no effusion. The patient will be admitted to the hospital for chest pain associated with tachycardia and respiratory distress with a known diagnosis of pulmonary embolism and suspected exacerbation of symptoms related to symptomatic anemia. The patient's results were discussed with the patient, including the plan of care. I explained that further testing and/ or monitoring is indicated based on the patient's history, examination, and/ or laboratory findings. Therefore, I recommended admission for additional evaluation. The patient expressed understanding and was agreeable with this plan. The patient was admitted to the hospital in guarded condition and [facility] Phys[facility] Communication Physician Communication The patient's case including history, pertinent physical examination findings, and laboratory studies were discussed with Dr. Lombardi. It was agreed that the [facility] Diagnosis Primary Impression: Pulmonary embolus Qualified Codes: I26.99 - Other pulmonary embolism without acute cor pulmonale Additional Impression: Iron deficiency anemia Qualified Codes: D50.9 - Iron deficiency anemia, unspecified Admitting Information Admitting Physician Requests: Admit Mela Londono MD November 28, 2017 01:40
[2017-11-28] MEDS ORDERED: SODIUM CHLORID 0.9% 500 ML INJ 500 ML IV ONE (01:45)
[2017-11-28 01:49] LABS: AUTOMATED NEUTROPHIL # 3.6 TH/MM3 (1.8-7.7); BASOPHIL % 0.6 % (0.0-2.0); EOSINOPHIL % 0.8 % (0.0-4.0); HEMATOCRIT 23.8 % (35.0-46.0); HEMOGLOBIN 7.5 GM/DL (11.6-15.3); LYMPH % 13.9 % (9.0-44.0); LYMPHOCYTE # 0.7 TH/MM3 (1.0-4.8); MEAN CELL VOLUME 71.5 FL (80.0-100.0); MEAN CORPUSCULAR HEMOGLOBIN 22.6 PG (27.0-34.0); MEAN CORPUSCULAR HGB CONC 31.6 % (32.0-36.0); MEAN PLATELET VOLUME 7.4 FL (7.0-11.0); MONO % 9.5 % (0.0-8.0); MONOCYTE # 0.5 TH/MM3 (0-0.9); NEUT % 75.2 % (16.0-70.0); PLATELET COUNT 351 TH/MM3 (150-450); RED BLOOD COUNT 3.33 MIL/MM3 (4.00-5.30); RED CELL DISTRIBUTION WIDTH 20.3 % (11.6-17.2); WHITE BLOOD COUNT 4.8 TH/MM3 (4.0-11.0)
--- NOTE | 2017-11-28 01:52 | RADRPT ---
EXAM DATE/TIME: 11/28/2017 01:34 [place] COMPARISON: No previous studies available for comparison. INDICATIONS : Shortness of breath. MEDICAL HISTORY : Anemia Asthma SURGICAL HISTORY : None. ENCOUNTER: Subsequent ACUITY: 1 week PAIN SCORE: 0/10 LOCATION: Bilateral chest FINDINGS: A single view of the chest demonstrates mild basilar airspace disease. No effusion. No pneumothorax. Heart size mildly enlarged. CONCLUSION: 1. Minimal subsegmental basilar airspace disease. No effusion. Navi Barrow MD on November 28, 2017 at 1:46 Board Certified Radiologist. This report was verified electronically.
[2017-11-28 02:03] LABS: ALBUMIN 2.4 GM/DL (3.4-5.0); ALT (GPT) 45 U/L (9-42); AST (GOT) 52 U/L (16-38); BICARBONATE 23.7 MEQ/L (21.0-32.0); BLOOD UREA NITROGEN 11 MG/DL (7-18); CALCIUM 7.5 MG/DL (8.5-10.1); CHLORIDE 104 MEQ/L (98-107); CREATININE 0.66 MG/DL (0.50-1.00); GLOMERULAR FILTRATION RATE 138 ML/MIN (>89); GLUCOSE,RANDOM 87 MG/DL (74-106); MAGNESIUM 1.8 MG/DL (1.5-2.5); SODIUM (NA) 136 MEQ/L (136-145)
[2017-11-28 02:04] LABS: INTERNATIONAL NORMALIZED RATIO 1.2 RATIO
[2017-11-28 02:12] LABS: ALKALINE PHOSPHATASE 60 U/L (45-117); C-REACTIVE PROTEIN 3.03 MG/DL (0.00-0.30); TOTAL BILIRUBIN ADULT 0.3 MG/DL (0.2-1.0); TOTAL PROTEIN 7.8 GM/DL (6.4-8.2); TROPONIN I LESS THAN 0.02 NG/ML (0.02-0.05)
[2017-11-28] MEDS ORDERED: SODIUM CHLORIDE 0.9% FLUSH 10 ML FLUSH IVF PRN (02:15)
[2017-11-28] MEDS ORDERED: RESP: ALBUTEROL 2.5 MG/IPRATROPIUM 0.5 MG NEB (SCH) INH ONE (02:15)
[2017-11-28] MEDS ORDERED: cefTRIAXone INJ 1,000 MG in SODIUM CHLORIDE 0.9% INJ 100 ML IV ONE (03:30)
[2017-11-28] MEDS ORDERED: ACETAMINOPHEN 325 MG TAB PO ONE (03:30)
[2017-11-28] MEDS ORDERED: AZITHROMYCIN INJ 500 MG in SODIUM CHLOR 0.9% 250 ML INJ 250 ML IV ONE (03:30)
[2017-11-28] MEDS ORDERED: SODIUM CHLOR 0.9% 250 ML INJ 250 ML IV ONE ×3 (03:45→04:30)
[2017-11-28] MEDS ORDERED: SODIUM CHLORIDE 0.9% FLUSH 10 ML FLUSH IV FLUSH PRN (05:00)
[2017-11-28] MEDS ORDERED: NALOXONE HCL 0.4 MG/ML AMP IV PUSH PRN (05:00)
[2017-11-28] MEDS ORDERED: SENNOSIDES 8.6 MG TAB PO PRN (05:00)
[2017-11-28] MEDS ORDERED: MAGNESIUM HYDROXIDE SUSP 30 ML CUP PO PRN (05:00)
[2017-11-28] MEDS ORDERED: LACTULOSE SYRUP 20 GM/30 ML CUP PO PRN (05:00)
[2017-11-28] MEDS ORDERED: BISACODYL 10 MG SUPP RECTAL PRN (05:00)
--- NOTE | 2017-11-28 05:10 | HHI.HP ---
[facility] Primary [facility] Physician Rell Chawla DO Admission Diagnosis Pulmonary Embolism, Anemia Diagnoses: Travel History International Travel<30 Days: No Contact w/Intl Traveler <30 Da: No Traveled to Known Affected Are: No History of Present Illness 22-year-old female with a past medical history of asthma and recently diagnosed PE, anticoagulated on Eliquis, presents to the emergency department complaining of chest pain. The patient reports that she has been compliant with her Eliquis since her discharge. She states she has severe left-sided chest pain that is worse when she talks and breathes. She also complains of shortness of breath with exertion. Patient states she has been feeling fatigued since her discharge from the hospital. She reports a fever to 103 at home. Positive chills. No cough. No abdominal pain. No nausea/vomiting/diarrhea. No lateralizing signs/symptoms Review of Systems Except as stated in HPI: all other systems reviewed are Neg Past Family Social History Past Medical History Asthma Recently diagnosed PE Past Surgical History None Reported Medications Reported Meds & Active Scripts Active Eliquis (Apixaban) 5 Mg Tab 10 Mg PO BID Eliquis (Apixaban) 5 Mg Tab 5 Mg PO BID Reported Klor-Con 8 (Potassium Chloride) 8 Meq Tab 8 Meq PO DAILY Furosemide 20 Mg Tab 20 Mg PO DAILY Sertraline (Sertraline HCl) 50 Mg Tab 50 Mg PO DAILY Allergies: Coded Allergies: No Known Allergies (Unverified , 11/28/17) Family History Negative for CAD/DM Social History Occasional alcohol. Negative for tobacco and drugs Physical Exam Vital Signs Vital Signs Date Time Temp Pulse Resp B/P (MAP) Pulse Ox O2 Delivery O2 Flow Rate FiO2 11/28/17 03:53 108 24 105/59 (74) 99 Nasal Cannula 2.00 11/28/17 02:57 109 24 117/65 (82) 100 Nasal Cannula 2.00 11/28/17 01:32 120 20 100 Nasal Cannula 2.00 11/28/17 01:28 133 26 100 Nasal Cannula 2.00 11/28/17 01:06 100.2 136 24 133/63 (86) 99 Physical Exam GENERAL: -[place] female sitting up in bed SKIN: No rashes, ecchymoses or lesions. Cool and dry. HEAD: Atraumatic. Normocephalic. No temporal or scalp tenderness. EYES: Pupils equal round and reactive. Extraocular motions intact. No scleral icterus. No injection or drainage. ENT: Nose without bleeding, purulent drainage or septal hematoma. Throat without erythema, tonsillar hypertrophy or exudate. Uvula midline. Airway patent. NECK: Trachea midline. No JVD or lymphadenopathy. Supple, nontender, no meningeal signs. CARDIOVASCULAR: Tachycardic. Regular rhythm. 3/6 murmur. RESPIRATORY: Clear to auscultation. Breath sounds equal bilaterally. No wheezes , rales, or rhonchi. GASTROINTESTINAL: Abdomen soft, non-tender, nondistended. No hepato-splenomegaly , or palpable masses. No guarding. MUSCULOSKELETAL: Extremities without clubbing, cyanosis, or edema. No joint tenderness, effusion, or edema noted. No calf tenderness. NEUROLOGICAL: Awake and alert. Cranial nerves II through XII intact. Motor and sensory grossly within normal limits. Normal speech. Laboratory Laboratory Tests Test 11/28/17 01:25 11/28/17 01:33 White Blood Count 4.8 Red Blood Count 3.33 Hemoglobin 7.5 Hematocrit 23.8 Mean Corpuscular Volume 71.5 Mean Corpuscular Hemoglobin 22.6 Mean Corpuscular Hemoglobin Concent 31.6 Red Cell Distribution Width 20.3 Platelet Count 351 Mean Platelet Volume 7.4 Neutrophils (%) (Auto) 75.2 Lymphocytes (%) (Auto) 13.9 Monocytes (%) (Auto) 9.5 Eosinophils (%) (Auto) 0.8 Basophils (%) (Auto) 0.6 Neutrophils # (Auto) 3.6 Lymphocytes # (Auto) 0.7 Monocytes # (Auto) 0.5 Eosinophils # (Auto) 0.0 Basophils # (Auto) 0.0 CBC Comment DIFF FINAL Differential Comment Prothrombin Time 12.0 Prothromb Time International Ratio 1.2 Activated Partial Thromboplast Time 27.3 Blood Urea Nitrogen 11 Creatinine 0.66 Random Glucose 87 Total Protein 7.8 Albumin 2.4 Calcium Level 7.5 Magnesium Level 1.8 Alkaline Phosphatase 60 Aspartate Amino Transf (AST/SGOT) 52 Alanine Aminotransferase (ALT/SGPT) 45 Total Bilirubin 0.3 Sodium Level 136 Potassium Level 3.7 Chloride Level 104 Carbon Dioxide Level 23.7 Anion Gap 8 Estimat Glomerular Filtration Rate 138 Total Creatine Kinase 25 Troponin I LESS THAN 0.02 C-Reactive Protein 3.03 Lipase 119 Thyroid Stimulating Hormone 3rd Gen 5.330 Lactic Acid Level 1.1 Date/Time Source Procedure Growth Status 11/28/17 01:33 Blood Peripheral Aerobic Blood Culture Pending Received 11/28/17 01:33 Blood Peripheral Anaerobic Blood Culture Pending Received Result Diagram: 11/28/175 11/28/175 Caprini VTE Risk Assessment Caprini VTE Risk Assessment: Mod/High Risk (score >= 2) Caprini Risk Assessment Model Point Value = 1 Point Value = 2 Point Value = 3 Point Value = 5 Age 41-60 Minor surgery BMI > 25 kg/m2 Swollen legs Varicose veins or History of unexplained or recurrent spontaneous Oral contraceptives or hormone replacement Sepsis (< 1 month) Serious lung disease, including pneumonia (< 1 month) Abnormal pulmonary function Acute myocardial infarction Congestive heart failure (< 1 month) History of inflammatory bowel disease Medical patient at bed rest Age 61-74 Arthroscopic surgery Major open surgery (> 45 min) Laparoscopic surgery (> 45 min) Malignancy Confined to bed (> 72 hours) Immobilizing plaster cast Central venous access Age >= 75 History of VTE Family history of VTE Factor V Leiden Prothrombin [id number] Lupus anticoagulant Anticardiolipin antibodies Elevated serum homocysteine Heparin-induced thrombocytopenia Other congenital or acquired thrombophilia Stroke (< 1 month) Elective arthroplasty Hip, pelvis, or leg fracture Acute spinal cord injury (< 1 month) Prophylaxis Regimen Total Risk Factor Score Risk Level Prophylaxis Regimen 0-1 Low Early ambulation 2 Moderate Order ONE of the following: *Sequential Compression Device (SCD) *Heparin 5000 units SQ BID 3-4 Higher Order ONE of the following medications: *Heparin 5000 units SQ TID *Enoxaparin/Lovenox 40 mg SQ daily (WT < 150 kg, CrCl > 30 mL/min) *Enoxaparin/Lovenox 30 mg SQ daily (WT < 150 kg, CrCl > 10-29 mL/min) *Enoxaparin/Lovenox 30 mg SQ BID (WT < 150 kg, CrCl > 30 mL/min) AND/OR *Sequential Compression Device (SCD) 5 or more Highest Order ONE of the following medications: *Heparin 5000 units SQ TID (Preferred with Epidurals) *Enoxaparin/Lovenox 40 mg SQ daily (WT < 150 kg, CrCl > 30 mL/min) *Enoxaparin/Lovenox 30 mg SQ daily (WT < 150 kg, CrCl > 10-29 mL/min) *Enoxaparin/Lovenox 30 mg SQ BID (WT < 150 kg, CrCl > 30 mL/min) AND *Sequential Compression Device (SCD) Assessment and Plan Assessment and Plan Assessment/plan: 1. Pulmonary embolism/chest pain CTA from previous hospitalization showed bilateral filling defects in the left lower lobe and right upper lobe Patient reports compliance with Eliquis Continue Eliquis Chest pain likely secondary to PE, may be component of anemia 2. Symptomatic anemia Hemoglobin 7.5, was 10.2 on 09/05/17 Patient refuses blood transfusion at this time No signs of active bleeding Continue to monitor Hemoglobin electrophoresis pending from previous hospitalization Iron studies suggestive of iron deficiency anemia Hematology consulted, appreciate assistance 3. Fever Unclear etiology Chest x-ray negative for acute process, personally reviewed UA pending Influenza pending 4. Heart murmur Echo showed an EF of 55-60% with a possible bicuspid aortic valve with mild increased gradient across the valve Cardiology recommends follow-up outpatient for further workup 5. Asthma Patient not on any home inhalers Monitor FEN Regular diet Electrolytes: monitor and replete prn Eliquis Physician Certification 2 Midnight Certification Type: Admission for Inpatient Services Order for Inpatient Services The services are ordered in accordance with Medicare regulations or non- Medicare payer requirements, as applicable. In the case of services not specified as inpatient-only, they are appropriately provided as inpatient services in accordance with the 2-midnight benchmark. Estimated LOS (days): 2 2 days is the estimated time the patient will need to remain in the hospital, assuming treatment plan goals are met and no additional complications. Post-Hospital Plan: Not yet determined Ana Lombardi MD November 28, 2017 05:10
[2017-11-28 05:54] LABS: AMORPHOUS SEDIMENT, URINE RARE; BACTERIA, URINE RARE /hpf; BILIRUBIN, URINE NEG (NEG); BLOOD, URINE MOD (NEG); GLUCOSE,URINE NEG (NEG); KETONE, URINE TRACE mg/dL (NEG); MUCUS URINE MANY /lpf (OCC); NITRITE,URINE NEG (NEG); SQUAMOUS EPITHELIAL CELL URINE 2 /hpf (0-5); TRANSITIONAL EPI CELLS, URINE <1 /hpf; URINE COLOR YELLOW (YELLW/STRAW); URINE LEUKOCYTE ESTERASE SMALL (NEG)
[2017-11-28] MEDS: SODIUM CHLORIDE 0.9% FLUSH 10 ML FLUSH IV FLUSH SCH ×2 (09:00→22:12)
[2017-11-28] MEDS: DOCUSATE SODIUM 50 MG/SENNA 8.6 MG TAB PO SCH ×2 (09:00→22:12)
[2017-11-28] MEDS: POTASSIUM CHLORIDE 8 MEQ CONTROLLED RELEASE TAB PO SCH (09:03)
[2017-11-28] MEDS: SERTRALINE HCL 50 MG TAB PO SCH (09:04)
[2017-11-28] MEDS: FUROSEMIDE 20 MG TAB PO SCH (09:04)
[2017-11-28] MEDS: APIXABAN 5 MG TABLET PO SCH ×2 (09:04→22:12)
[2017-11-28] MEDS: ACETAMINOPHEN 325 MG TAB PO PRN ×2 (09:06→17:08)
--- NOTE | 2017-11-28 11:03 | HHI.PR ---
Subjective Remarks Patient states still with pleuritic chest pain. No active shortness of breath at this time. States no active fevers at this time. No coughing. She denies any diarrhea. She denies any symptoms of dysuria. Objective Vitals Vital Signs Date Time Temp Pulse Resp B/P (MAP) Pulse Ox O2 Delivery O2 Flow Rate FiO2 11/28/17 10:21 100 11/28/17 08:00 97.9 94 16 113/62 (79) 100 11/28/17 07:41 Room Air 11/28/17 06:15 98.0 107 17 102/59 (73) 99 11/28/17 05:38 11/28/17 05:33 98.3 110 22 102/56 (71) 98 Room Air 11/28/17 05:00 97 11/28/17 03:53 108 24 105/59 (74) 99 Nasal Cannula 2.00 11/28/17 02:57 109 24 117/65 (82) 100 Nasal Cannula 2.00 11/28/17 01:32 120 20 100 Nasal Cannula 2.00 11/28/17 01:28 133 26 100 Nasal Cannula 2.00 11/28/17 01:06 100.2 136 24 133/63 (86) 99 I/O 11/27/17 11/27/17 11/27/17 11/28/17 11/28/17 11/28/17 07:00 15:00 23:00 07:00 15:00 23:00 Intake Total 850 ml Balance 850 ml Intake IV Total 850 ml Result Diagram: 11/28/17 0125 11/28/17 0125 Objective Remarks GENERAL: This is a well-nourished, well-developed patient, in no apparent distress. CARDIOVASCULAR: Regular rate and rhythm with 2 out of 6 murmur RESPIRATORY: Clear to auscultation. Breath sounds equal bilaterally. No wheezes , rales, or rhonchi. MUSCULOSKELETAL: Extremities without clubbing, cyanosis, or edema. NEURO: Alert & Oriented x4 to person, place, time, situation. Moves all ext x4 A/P Assessment and Plan 1. Pulmonary embolism/chest pain, diagnosed during previous hospitalization CTA from previous hospitalization showed bilateral filling defects in the left lower lobe and right upper lobe Patient reports compliance with Eliquis Continue with Eliquis 2. Symptomatic anemia Hemoglobin 7.5, was 10.2 on 09/05/17 Patient refuses blood transfusion overnight also recommended 2 units of packed red blood cell. No signs of active bleeding Continue to monitor Hematology consulted, await recommendations. 3. Subjective complaints of fever Unclear etiology UA and urine culture pending Influenza negative Blood cultures currently shows no growth. Patient has been afebrile overnight. 4. Heart murmur Echo showed an EF of 55-60% with a possible bicuspid aortic valve with mild increased gradient across the valve Cardiology recommends follow-up outpatient for further workup 5. Asthma, no active exacerbation Patient not on any home inhalers Monitor 6. DVT prophylaxis Eliquis. Discharge Planning Anticipate home when medically stable. Shaniqua Murillo MD November 28, 2017 11:03
[2017-11-28] MEDS ORDERED: PHENOL 1.4% SOLN 180 ML BTL OROPHARYNG PRN (18:00)
--- NOTE | 2017-11-28 18:46 | EKG ---
Date Performed: 11/28/2017 Time Performed: 01:16:30 PTAGE: 22 years EKG: SINUS TACHYCARDIA NONSPECIFIC T-WAVE ABNORMALITY ABNORMAL RHYTHM ECG Since the PREVIOUS TRACING , no significant change noted PREVIOUS TRACIN11/28/2017 01.14 DOCTOR: Eugene Morgan Interpretating Date/Time 11/28/2017 18:44:20
[2017-11-28] MEDS ORDERED: BENZOCAINE 6 MG/MENTHOL 10 MG LOZENGE BUCCAL ONE (19:45)
[2017-11-28] MEDS ORDERED: diphenhydrAMINE HCL 50 MG CAP PO ONE (22:45)
[2017-11-28] MEDS: ONDANSETRON ODT 4 MG TAB PO PRN (23:48)
[2017-11-29] VITALS (7 sets, daily range): BP systolic 104–124; BP diastolic 63–76; PULSE 105–114; RESP 17–18; TEMP 98.2–99.7; O2SAT 96–99
[2017-11-29] MEDS: APIXABAN 5 MG TABLET PO SCH ×2 (08:17→20:33)
[2017-11-29] MEDS: FUROSEMIDE 20 MG TAB PO SCH (08:17)
[2017-11-29] MEDS: POTASSIUM CHLORIDE 8 MEQ CONTROLLED RELEASE TAB PO SCH (08:17)
[2017-11-29] MEDS: SERTRALINE HCL 50 MG TAB PO SCH (08:17)
[2017-11-29] MEDS: DOCUSATE SODIUM 50 MG/SENNA 8.6 MG TAB PO SCH ×2 (08:17→20:33)
[2017-11-29] MEDS: SODIUM CHLORIDE 0.9% FLUSH 10 ML FLUSH IV FLUSH SCH ×2 (08:18→20:35)
[2017-11-29] MEDS: cefTRIAXone INJ 1,000 MG in SODIUM CHLORIDE 0.9% INJ 100 ML IV SCH (08:34)
--- NOTE | 2017-11-29 09:20 | HHI.PR ---
Subjective Remarks Patient states she is doing ok. Complaining of aching abdominal pain, not associated with her menstrual cycle. Denies any chest pain. States the Chloraseptic spray is helping with her sore throat. Objective Vitals Vital Signs Date Time Temp Pulse Resp B/P (MAP) Pulse Ox O2 Delivery O2 Flow Rate FiO2 11/29/17 07:54 98.3 112 18 118/74 (89) 99 11/29/17 07:14 Room Air 11/29/17 03:50 98.6 105 18 104/66 (79) 98 11/28/17 20:00 98.0 105 18 125/75 (92) 99 11/28/17 16:00 97.7 101 18 129/72 (91) 100 11/28/17 12:00 99.0 112 18 115/71 (86) 97 11/28/17 12:00 97.7 96 18 113/59 (77) 99 11/28/17 11:55 97.3 100 18 114/65 99 11/28/17 11:40 97.7 96 18 113/59 99 11/28/17 10:21 100 I/O 11/28/17 11/28/17 11/28/17 11/29/17 11/29/17 11/29/17 06:59 14:59 22:59 06:59 14:59 22:59 Intake Total 850 ml 325 ml 360 ml Balance 850 ml 325 ml 360 ml Intake Oral 360 ml IV Total 850 ml Packed Cells 325 ml # Voids 3 # Bowel Movements 1 Result Diagram: 11/28/17 0125 11/28/17 0125 Objective Remarks SKIN: Warm and dry. EYES: Pupils equal and round. ENT: No nasal bleeding or discharge CARDIOVASCULAR: Regular rate and rhythm. RESPIRATORY: No accessory muscle use. Clear to auscultation. Breath sounds equal bilaterally. GASTROINTESTINAL: Abdomen soft, tender to palpation, nondistended. Hepatic and splenic margins not palpable. MUSCULOSKELETAL: Extremities without clubbing, cyanosis, or edema. No obvious deformities. Urinary Catheter: No Vascular Central Line Catheter: No A/P Assessment and Plan Pulmonary embolism/chest pain, diagnosed during previous hospitalization CTA from previous hospitalization showed bilateral filling defects in the left lower lobe and right upper lobe Patient reports compliance with Eliquis -Continue with Eliquis Symptomatic anemia Hemoglobin 7.5, was 10.2 on 09/05/17 -Patient agreed to 1 unit of PRBCs, 11/28 -11/29 Repeat H&H ordered -Continue to monitor -Hematology consulted, await recommendations. UTI, patient with complaints of fever, UA shows small leukocyte esterase -11/29 Urine culture pending -11/29 Probiotics ordered -11/29 Rocephin IV for 2 more doses -11/29 Blood cultures no growth so far Heart murmur Echo showed an EF of 55-60% with a possible bicuspid aortic valve with mild increased gradient across the valve -Cardiology recommends follow-up outpatient for further workup Asthma, no active exacerbation Patient not on any home inhalers -Monitor. Abdominal pain, unknown etiology -KUB ordered DVT prophylaxis Eliqusophy. Lala Flowers November 29, 2017 09:20
--- NOTE | 2017-11-29 11:38 | RADRPT ---
EXAM DATE/TIME: 11/29/2017 11:14 [facility] COMPARISON: CT ABDOMEN & PELVIS W CONTRAST, November 23, 2017, 16:57. INDICATIONS : Abdomen pain. MEDICAL HISTORY : Cardiovascular disease. Asthma SURGICAL HISTORY : None. ENCOUNTER: Initial ACUITY: 4 - 6 days PAIN SCORE: 8/10 LOCATION: Abdomen FINDINGS: Supine view of the abdomen was performed. Air is noted in proximal loops of colon that appear normal in caliber. There is also noted in loops of nondistended small bowel. Paucity of bowel gas distally i n the colon. Several small calcific lesions in the pelvis likely reflect phleboliths. No abnormal ines cifications, or organomegaly is seen. The osseous structures are unremarkable. CONCLUSION: 1. Nonobstructive bowel gas pattern. Larry Saldana MD on November 29, 2017 at 11:32 Board Certified Radiologist. This report was verified electronically.
[2017-11-29] MEDS: LACTOBACILLUS ACIDOPHILUS TAB PO SCH ×2 (14:43→17:27)
[2017-11-29] MEDS: SIMETHICONE 80 MG CHEWABLE TAB CHEW PRN (17:29)
--- NOTE | 2017-11-29 17:51 | MB ---
cc: Shyanne Nelson MD, Tabitha N MD DATE: 11/29/2017 CHIEF COMPLAINT: 1. Pulmonary embolism. 2. History of anticoagulation with apixaban. 3. Anemia. HISTORY OF PRESENT ILLNESS: Ms. Wetzel is a 22-year-old lady with a history of asthma, who was recently hospitalized from 11/20 through 11/23 for newly diagnosed pulmonary embolism. At that admission, she was admitted with shortness of breath and chest pain that had been present for approximately 24 hours prior to her emergency room presentation. She also had a nonproductive cough. On arrival to the emergency room, she was found to have an elevated heart rate. CT scan at that time showed filling defects involving the segmental branch of the left lower lobe and possibly the right lower lobe consistent with small peripheral pulmonary emboli. She was also noted to have cardiomegaly. Bilateral lower extremity ultrasound during that time showed no evidence of DVT of the lower extremities. She had normal AST, ALT, alkaline phosphatase, total bilirubin, total protein. Her albumin was low at 2.3. Creatinine was within normal limits. White blood cell count was 4.7, hemoglobin 7.8, and platelet count was 328,000 during that time. She was readmitted to the hospital on 11/28 with persistence of chest pain. This chest pain is worse when she talks and when she breathes. She also reported an elevated temperature to 103 at home. During her hospitalization, the pulmonary team as well as the cardiology teams were consulted and evaluated the patient. Echo at that time showed an ejection fraction of 55-60%. CT scan of the abdomen and pelvis showed small adnexal cysts bilaterally, cardiomegaly, no adenopathy and no bone lesions. Laboratory studies from this hospital stay with a white blood cell count of 4.8, hemoglobin 7.8, platelet count is 351,000. Differential with slightly low absolute lymphocyte count at 0.7. Chemistry studies with slight elevation of the AST and ALT. Total bilirubin within normal limits. Haptoglobin elevated at 299,000. Hemoglobin electrophoresis is within normal limits. Vitamin B12 and folate are within normal limits. Iron profile from previous hospital stay with an anemia of chronic disease. Lactate dehydrogenase is elevated at 837. Factor V Leiden is negative. Protein S activity is within normal limits. Protein C activity is mildly below normal at 63% with the lower limit of normal being 70. However, she is currently on oral anticoagulation and this is certainly affecting this clinical value. Prothrombin gene mutation is not detected. Antithrombin III activity is within normal limits. Anticardiolipin IgM is slightly elevated at 14, however, this would still be considered the negative range. We will check lupus anticoagulant as well. PAST MEDICAL HISTORY: Asthma. PAST SURGICAL HISTORY: None. ALLERGIES: NO KNOWN DRUG ALLERGIES. REVIEW OF SYSTEMS: As above in the HPI. All other review of systems negative. FAMILY HISTORY: She believes that she may have some relatives with history of blood clots. SOCIAL HISTORY: Occasional rare alcohol use. No tobacco or illegal drug use. She is currently in school. She has a good support system with her family. PHYSICAL EXAMINATION: GENERAL: Well-developed, well-nourished lady in no distress. HEENT: PERRLA, EOMI. No scleral icterus. Head is normocephalic, atraumatic. CARDIOVASCULAR: Regular rate and rhythm, no murmurs. RESPIRATORY: Clear to auscultation bilaterally. ABDOMEN: Soft, nontender, nondistended. Bowel sounds present. EXTREMITIES: No edema. NEUROLOGIC: Grossly nonfocal. PSYCHIATRIC: Appropriate mood and affect. ASSESSMENT: 1. Unprovoked pulmonary embolism with no recent hospitalization, surgery and travel. She currently on apixaban therapy and she is tolerating this well. 2. Cardiomegaly. She has previously been evaluated by the cardiology service during her past hospital stay. 3. Anemia. Hemoglobin electrophoresis, vitamin B12 and folate are within normal limits. Iron studies are indicative of an anemia of chronic disease. The patient does have some evidence of underlying inflammation with an elevated ESR, CRP, LDH, haptoglobin. No other cell lines are affected. Likelihood of this being an underlying bone marrow disorder is low. We will check stool for occult blood. She also reports that as of the past several months that she has been having her period twice monthly. She will need close follow with gynecology. If counts do not improve or if other cell lines became affected would consider bone marrow biopsy. If hemoccult positive would consult GI team. 4. Hypercoagulable workup slightly elevated anticardiolipin. We will order lupus anticoagulant. Protein C activity is slightly less than the lower limit of normal, however, this is certainly being affected by her current anticoagulation. All other studies including a prothrombin gene mutation, Factor V Leiden, protein S activity, antithrombin III activity are within normal limits. Inpatient hematology service will continue to follow. Possible underlying rheumatologic disease/inflammatory condition. MD PATRICK Bhakta/ , 05:26 PM , 05:50 PM [facility]
[2017-11-30] VITALS (11 sets, daily range): BP systolic 101–120; BP diastolic 54–70; PULSE 112–133; RESP 17–32; TEMP 98.4–100.3; O2SAT 95–100
[2017-11-30 06:27] LABS: AUTOMATED NEUTROPHIL # 3.3 TH/MM3 (1.8-7.7); BASOPHIL % 0.4 % (0.0-2.0); EOSINOPHIL # 0.1 TH/MM3 (0-0.4); EOSINOPHIL % 2.8 % (0.0-4.0); HEMATOCRIT 28.9 % (35.0-46.0); HEMOGLOBIN 9.3 GM/DL (11.6-15.3); LYMPH % 11.8 % (9.0-44.0); LYMPHOCYTE # 0.5 TH/MM3 (1.0-4.8); MEAN CELL VOLUME 71.9 FL (80.0-100.0); MEAN CORPUSCULAR HEMOGLOBIN 23.1 PG (27.0-34.0); MEAN CORPUSCULAR HGB CONC 32.1 % (32.0-36.0); MEAN PLATELET VOLUME 6.9 FL (7.0-11.0); MONO % 7.4 % (0.0-8.0); MONOCYTE # 0.3 TH/MM3 (0-0.9); NEUT % 77.6 % (16.0-70.0); PLATELET COUNT 459 TH/MM3 (150-450); RED BLOOD COUNT 4.02 MIL/MM3 (4.00-5.30); RED CELL DISTRIBUTION WIDTH 19.9 % (11.6-17.2); WHITE BLOOD COUNT 4.3 TH/MM3 (4.0-11.0)
[2017-11-30 07:02] LABS: BICARBONATE 23.4 MEQ/L (21.0-32.0); CALCIUM 8.7 MG/DL (8.5-10.1); CREATININE 0.64 MG/DL (0.50-1.00); FREE T4 1.55 NG/DL (0.76-1.46)
[2017-11-30] MEDS: cefTRIAXone INJ 1,000 MG in SODIUM CHLORIDE 0.9% INJ 100 ML IV SCH (08:15)
[2017-11-30] MEDS: LACTOBACILLUS ACIDOPHILUS TAB PO SCH ×3 (08:15→17:48)
[2017-11-30] MEDS: POTASSIUM CHLORIDE 8 MEQ CONTROLLED RELEASE TAB PO SCH (08:17)
[2017-11-30] MEDS: SERTRALINE HCL 50 MG TAB PO SCH (08:17)
[2017-11-30] MEDS: DOCUSATE SODIUM 50 MG/SENNA 8.6 MG TAB PO SCH ×2 (08:17→21:00)
[2017-11-30] MEDS: APIXABAN 5 MG TABLET PO SCH ×2 (08:17→21:57)
[2017-11-30] MEDS: SIMETHICONE 80 MG CHEWABLE TAB CHEW PRN (08:17)
[2017-11-30] MEDS: SODIUM CHLORIDE 0.9% FLUSH 10 ML FLUSH IV FLUSH SCH ×2 (08:18→19:30)
[2017-11-30] MEDS: FUROSEMIDE 20 MG TAB PO SCH (08:21)
--- NOTE | 2017-11-30 11:56 | HHI.PR ---
Subjective Remarks 22-year-old female with a past medical history of asthma and recently diagnosed PE, anticoagulated on Eliquis, presents to the emergency department complaining of chest pain. The patient reports that she has been compliant with her Eliquis since her discharge. She states she has severe left-sided chest pain that is worse when she talks and breathes. She also complains of shortness of breath with exertion. Patient states she has been feeling fatigued since her discharge from the hospital. She reports a fever to 103 at home. Positive chills. No cough. No abdominal pain. No nausea/vomiting/diarrhea. No lateralizing signs/symptoms Patient states still with pleuritic chest pain. No active shortness of breath at this time. States no active fevers at this time. No coughing. She denies any diarrhea. She denies any symptoms of dysuria. 5-15 Patient states she is doing ok. Complaining of aching abdominal pain, not associated with her menstrual cycle. Denies any chest pain. States the Chloraseptic spray is helping with her sore throat. 5-16 PATIENT COMPLAINTS OF PAIN ALL OVER DW RN AND PT AND FAMILY STATES SHE IS NOT EATING HAS A SORE THROAT WILL GET CAT SCAN OF ABDOMEN AM LABS MAY ALL BE MENSTRUAL RELATED Objective Vitals Vital Signs Date Time Temp Pulse Resp B/P (MAP) Pulse Ox O2 Delivery O2 Flow Rate FiO2 11/30/17 10:30 96 11/30/17 08:00 98.6 112 18 119/69 (86) 98 11/30/17 07:30 Room Air 11/30/17 04:16 117 11/30/17 03:45 99.7 119 17 116/63 (80) 95 11/29/17 23:58 106 11/29/17 23:45 99.7 106 18 114/76 (89) 96 11/29/17 20:40 Room Air 11/29/17 19:07 98.8 106 17 116/71 (86) 98 11/29/17 16:00 98.2 110 18 124/74 (91) 97 11/29/17 12:00 98.6 114 18 112/63 (79) 98 I/O 11/29/17 11/29/17 11/29/17 11/30/17 11/30/17 11/30/17 07:00 15:00 23:00 07:00 15:00 23:00 Intake Total 360 ml 480 ml 360 ml Balance 360 ml 480 ml 360 ml Intake Oral 360 ml 480 ml 360 ml # Voids 3 4 3 # Bowel Movements 1 2 0 Result Diagram: 11/30/17 0617 11/30/17 0617 Other Results Laboratory Tests Test 11/28/17 01:25 11/28/17 01:33 11/28/17 04:55 11/28/17 05:35 White Blood Count 4.8 TH/MM3 Red Blood Count 3.33 MIL/MM3 Hemoglobin 7.5 GM/DL Hematocrit 23.8 % Mean Corpuscular Volume 71.5 FL Mean Corpuscular Hemoglobin 22.6 PG Mean Corpuscular Hemoglobin Concent 31.6 % Red Cell Distribution Width 20.3 % Platelet Count 351 TH/MM3 Mean Platelet Volume 7.4 FL Neutrophils (%) (Auto) 75.2 % Lymphocytes (%) (Auto) 13.9 % Monocytes (%) (Auto) 9.5 % Eosinophils (%) (Auto) 0.8 % Basophils (%) (Auto) 0.6 % Neutrophils # (Auto) 3.6 TH/MM3 Lymphocytes # (Auto) 0.7 TH/MM3 Monocytes # (Auto) 0.5 TH/MM3 Eosinophils # (Auto) 0.0 TH/MM3 Basophils # (Auto) 0.0 TH/MM3 CBC Comment DIFF FINAL Differential Comment Blood Smear Pathologist Review Haptoglobin 299 MG/DL Prothrombin Time 12.0 SEC Prothromb Time International Ratio 1.2 RATIO Activated Partial Thromboplast Time 27.3 SEC Blood Urea Nitrogen 11 MG/DL Creatinine 0.66 MG/DL Random Glucose 87 MG/DL Total Protein 7.8 GM/DL Albumin 2.4 GM/DL Calcium Level 7.5 MG/DL Magnesium Level 1.8 MG/DL Alkaline Phosphatase 60 U/L Aspartate Amino Transf (AST/SGOT) 52 U/L Alanine Aminotransferase (ALT/SGPT) 45 U/L Total Bilirubin 0.3 MG/DL Sodium Level 136 MEQ/L Potassium Level 3.7 MEQ/L Chloride Level 104 MEQ/L Carbon Dioxide Level 23.7 MEQ/L Anion Gap 8 MEQ/L Estimat Glomerular Filtration Rate 138 ML/MIN Lactate Dehydrogenase 837 U/L Total Creatine Kinase 25 U/L Troponin I LESS THAN 0.02 NG/ML C-Reactive Protein 3.03 MG/DL Lipase 119 U/L Thyroid Stimulating Hormone 3rd Gen 5.330 uIU/ML Lactic Acid Level 1.1 mmol/L Blood Gas Puncture Site RT RADIAL Blood Gas Patient Temperature 98.6 Blood Gas HCO3 25 mmol/L Blood Gas Base Excess 0.7 mmol/L Blood Gas Oxygen Saturation 95 % Arterial Blood pH 7.41 Arterial Blood Partial Pressure CO2 40 mmHg Arterial Blood Partial Pressure O2 89 mmHG Arterial Blood Oxygen Content 9.2 Vol % Arterial Blood Carboxyhemoglobin 1.5 % Arterial Blood Methemoglobin 0.7 % Blood Gas Hemoglobin 6.8 G/DL Oxygen Delivery Device ROOM AIR Blood Gas Inspired Oxygen 21 % Urine Color YELLOW Urine Turbidity HAZY Urine pH 6.0 Urine Specific Ewing 1.029 Urine Protein 300 mg/dL Urine Glucose (UA) NEG mg/dL Urine Ketones TRACE mg/dL Urine Occult Blood MOD Urine Nitrite NEG Urine Bilirubin NEG Urine Urobilinogen 4.0 MG/DL Urine Leukocyte Esterase SMALL Urine RBC 22 /hpf Urine WBC 51 /hpf Urine Squamous Epithelial Cells 2 /hpf Urine Transitional Epithelial Cells <1 /hpf Urine Amorphous Sediment RARE Urine Bacteria RARE /hpf Urine Granular Casts 61 /lpf Urine Mucus MANY /lpf Microscopic Urinalysis Comment CULTURE INDICATED Test 11/30/17 06:17 White Blood Count 4.3 TH/MM3 Red Blood Count 4.02 MIL/MM3 Hemoglobin 9.3 GM/DL Hematocrit 28.9 % Mean Corpuscular Volume 71.9 FL Mean Corpuscular Hemoglobin 23.1 PG Mean Corpuscular Hemoglobin Concent 32.1 % Red Cell Distribution Width 19.9 % Platelet Count 459 TH/MM3 Mean Platelet Volume 6.9 FL Neutrophils (%) (Auto) 77.6 % Lymphocytes (%) (Auto) 11.8 % Monocytes (%) (Auto) 7.4 % Eosinophils (%) (Auto) 2.8 % Basophils (%) (Auto) 0.4 % Neutrophils # (Auto) 3.3 TH/MM3 Lymphocytes # (Auto) 0.5 TH/MM3 Monocytes # (Auto) 0.3 TH/MM3 Eosinophils # (Auto) 0.1 TH/MM3 Basophils # (Auto) 0.0 TH/MM3 CBC Comment DIFF FINAL Differential Comment Blood Urea Nitrogen 11 MG/DL Creatinine 0.64 MG/DL Random Glucose 81 MG/DL Calcium Level 8.7 MG/DL Sodium Level 137 MEQ/L Potassium Level 4.0 MEQ/L Chloride Level 103 MEQ/L Carbon Dioxide Level 23.4 MEQ/L Anion Gap 11 MEQ/L Estimat Glomerular Filtration Rate 143 ML/MIN Free Thyroxine 1.55 NG/DL Imaging Last Impressions Abdomen X-Ray 11/29/17 0000 Signed Impressions: Service Date/Time: Wednesday, November 29, 2017 11:14 - CONCLUSION: 1. Nonobstructive bowel gas pattern. Larry Saladna MD Chest X-Ray 11/28/17 0128 Signed Impressions: Service Date/Time: Tuesday, November 28, 2017 01:34 - CONCLUSION: 1. Minimal subsegmental basilar airspace disease. No effusion. Navi Barrow MD Objective Remarks GENERAL: Awake and alert and oriented 3 talkative and BUT UNcooperative SKIN: Warm and dry. HEAD: Atraumatic. Normocephalic. EYES: Pupils equal and round. No scleral icterus. No injection or drainage. ENT: No nasal bleeding or discharge. Mucous membranes pink and moist. NECK: Trachea midline. No JVD. CARDIOVASCULAR: Regular rate and rhythm. S1-S2 no S3 or S4 RESPIRATORY: No accessory muscle use. Clear to auscultation. Breath sounds equal bilaterally. GASTROINTESTINAL: Abdomen soft, MILD TENDERNESS Hepatic and splenic margins not palpable. MUSCULOSKELETAL: Extremities without clubbing, cyanosis, or edema. No obvious deformities. NEUROLOGICAL: Awake and alert. No obvious cranial nerve deficits. Motor grossly within normal limits. 4 out of 5 muscle strength in the arms and legs. Normal speech. PSYCHIATRIC: Appropriate mood and affect; insight and judgment normal. Procedures none Medications and IVs Current Medications Sodium Chloride 500 ml @ 500 mls/hr BOLUS ONCE IV Last administered on at 01:47; Start 11/28/17 at 01:45; Stop 11/28/17 at 02:44; Status DC Sodium Chloride (NS Flush) 2 ml UNSCH PRN IVF FLUSH AFTER USING IV ACCESS; Start 11/28/17 at 02:15; Stop 11/28/17 at 19:41; Status DC Albuterol/ Ipratropium (Duoneb Neb) 1 ampule ONCE ONCE INH Last administered on 11/28/17at 02:22; Start 11/28/17 at 02:15; Stop 11/28/17 at 02:16; Status DC Acetaminophen (Tylenol) 650 mg ONCE ONCE PO Last administered on 11/28/17at 03: 39; Start 11/28/17 at 03:30; Stop 11/28/17 at 03:31; Status DC Ceftriaxone Sodium 1000 mg/ Sodium Chloride 100 ml @ 200 mls/hr ONCE ONCE IV Last administered on 11/28/17at 03:39; Start 11/28/17 at 03:30; Stop 11/28/17 at 03:59; Status DC Azithromycin 500 mg/Sodium Chloride 250 ml @ 250 mls/hr ONCE ONCE IV Last administered on 11/28/17at 04:22; Start 11/28/17 at 03:30; Stop 11/28/17 at 04:29 ; Status DC Sodium Chloride 250 ml @ 15 mls/hr ONCE ONCE IV ; Start 11/28/17 at 03:45; Stop 11/28/17 at 20:24; Status DC Sodium Chloride 250 ml @ 15 mls/hr ONCE ONCE IV ; Start 11/28/17 at 04:30; Stop 11/28/17 at 21:09; Status DC Sodium Chloride 250 ml @ 15 mls/hr ONCE ONCE IV ; Start 11/28/17 at 04:30; Stop 11/28/17 at 21:09; Status DC Apixaban (Eliquis) 10 mg BID PO Last administered on 11/30/17at 08:17; Start at 09:00 Furosemide (Lasix) 20 mg DAILY PO Last administered on 11/30/17at 08:21; Start 11/28/17 at 09:00 Potassium Chloride (KCl) 8 meq DAILY PO Last administered on 11/30/17at 08:17; Start 11/28/17 at 09:00 Sertraline HCl (Zoloft) 50 mg DAILY PO Last administered on 11/30/17at 08:17; Start 11/28/17 at 09:00 Sodium Chloride (NS Flush) 2 ml UNSCH PRN IV FLUSH FLUSH AFTER USING IV ACCESS ; Start 11/28/17 at 05:00 Sodium Chloride (NS Flush) 2 ml BID IV FLUSH Last administered on 11/30/17at 08: 18; Start 11/28/17 at 09:00 Acetaminophen (Tylenol) 650 mg Q4H PRN PO TEMP > 100.4 Last administered on at 17:08; Start 11/28/17 at 05:00 Ondansetron HCl (Zofran Odt) 4 mg Q6H PRN PO NAUSEA OR VOMITING Last administered on 11/28/17at 23:48; Start 11/28/17 at 05:00 Naloxone HCl (Narcan Inj) 0.4 mg UNSCH PRN IV PUSH SEE LABEL COMMENTS; Start at 05:00 Senna/Docusate Sodium (Nadya-Colace) 1 tab BID PO Last administered on at 20:33; Start 11/28/17 at 09:00 Magnesium Hydroxide (Milk Of Magnesia Liq) 30 ml Q12H PRN PO Mild constipation ; Start 11/28/17 at 05:00 Sennosides (Senokot) 17.2 mg Q12H PRN PO Moderate constipation; Start 11/28/17 at 05:00 Bisacodyl (Dulcolax Supp) 10 mg DAILY PRN RECTAL SEVERE CONSITIPATION; Start at 05:00 Lactulose (Lactulose Liq) 30 ml DAILY PRN PO SEVERE CONSITIPATION; Start at 05:00 Phenol (Chloraseptic [place]) 1 spray DAILY PRN OROPHARYNG SORE THROAT Last administered on 11/29/17at 08:17; Start 11/28/17 at 18:00 Benzocaine/Menthol (Chloraseptic Clarence) 1 lozenge ONCE ONCE BUCCAL Last administered on 11/28/17at 22:12; Start 11/28/17 at 19:45; Stop 11/28/17 at 19:46 ; Status DC Diphenhydramine HCl (Benadryl) 50 mg ONCE ONCE PO Last administered on at 23:48; Start 11/28/17 at 22:45; Stop 11/28/17 at 22:46; Status DC Ceftriaxone Sodium 1000 mg/ Sodium Chloride 100 ml @ 200 mls/hr Q24H IV Last administered on 11/30/17at 08:15; Start 11/29/17 at 08:00; Stop 11/30/17 at 09:00 ; Status DC Lactobacillus Acidophilus (Lactinex) 1 tab TID PO Last administered on at 08:15; Start 11/29/17 at 13:00 Simethicone (Mylicon Chew) 80 mg PCHS PRN CHEW gas pains Last administered on at 08:17; Start 11/29/17 at 13:15 A/P Assessment and Plan Pulmonary embolism/chest pain, diagnosed during previous hospitalization CTA from previous hospitalization showed bilateral filling defects in the left lower lobe and right upper lobe Patient reports compliance with Eliquis -Continue with Eliquis Symptomatic anemia Hemoglobin 7.5, was 10.2 on 09/05/17 -Patient agreed to 1 unit of PRBCs, 11/28 -11/29 Repeat H&H ordered -Continue to monitor -Hematology consulted, await recommendations. UTI, patient with complaints of fever, UA shows small leukocyte esterase -11/29 Urine culture pending -11/29 Probiotics ordered -11/29 Rocephin IV for 2 more doses -11/29 Blood cultures no growth so far Heart murmur Echo showed an EF of 55-60% with a possible bicuspid aortic valve with mild increased gradient across the valve -Cardiology recommends follow-up outpatient for further workup Asthma, no active exacerbation Patient not on any home inhalers -Monitor. Abdominal pain, unknown etiology -KUB ordered NONSPECIFIC PAIN ALL OVER- MAYBE DUE TO MENSTRUAL CYCLE DVT prophylaxis Eliquis. Discharge Planning PENDING IMPROVEMENT Orestes Feldman DO November 30, 2017 11:56
[2017-11-30] MEDS ORDERED: LEVOTHYROXINE SODIUM 25 MCG TAB PO ONE (13:30)
[2017-11-30] MEDS ORDERED: DIATRIZOATE MEGLUM/DIATRIZOATE SOD 9 ML CUP PO ONE (13:30)
[2017-11-30] MEDS: LORazepam 2 MG/ML VIAL IV PUSH ONE (19:30)
[2017-11-30] MEDS: ACETAMINOPHEN 325 MG TAB PO PRN (19:39)
--- NOTE | 2017-11-30 20:06 | RADRPT ---
EXAM DATE/TIME: 11/30/2017 19:37 [facility] COMPARISON: CHEST SINGLE AP, November 28, 2017, 1:34. INDICATIONS : Chest pain and shortness of breath. MEDICAL HISTORY : Cardiovascular disease. Asthma SURGICAL HISTORY : None. ENCOUNTER: Subsequent ACUITY: 1 day PAIN SCORE: 10/10 LOCATION: Bilateral chest Left sided. FINDINGS: The heart size is normal. There is very minimal faint density at the right base. The left lung is maricarmen ar. No effusion is seen. CONCLUSION: Minimal density at the right base likely representing minimal atelectasis or consolidation. Isai Mckinley MD on November 30, 2017 at 20:03 Board Certified Radiologist. This report was verified electronically.
[2017-11-30] MEDS ORDERED: IOHEXOL 350 MG/ML 10 ML VIAL (for RAD DIAG) IVCONTRAST ONE (21:17)
--- NOTE | 2017-11-30 21:36 | RADRPT ---
EXAM DATE/TIME: 11/30/2017 21:00 [facility] COMPARISON: CT ABDOMEN & PELVIS W CONTRAST, November 23, 2017, 16:57. INDICATIONS : Abdominal pain IV CONTRAST: 75 cc Omnipaque 350 (iohexol) IV ORAL CONTRAST: Prescribed oral contrast ingested. RADIATION DOSE: 6.15 CTDIvol (mGy) MEDICAL HISTORY : Congestive heart failure. Blood clots on lungs, asthma SURGICAL HISTORY : None. ENCOUNTER: Initial ACUITY: 1 day PAIN SCALE: 2/10 LOCATION: Bilateral Abdomen TECHNIQUE: Volumetric scanning of the abdomen and pelvis was performed. Using automated exposure control and ad justment of the mA and/or kV according to patient size, radiation dose was kept as low as reasonably achievable to obtain optimal diagnostic quality images. DICOM format image data is available electro nically for review and comparison. FINDINGS: LOWER LUNGS: There is increased density at the lung bases being worse on the right. LIVER: Homogeneous density without lesion. There is no dilation of the biliary tree. No calcified gallston es. SPLEEN: Normal size without lesion. PANCREAS: Within normal limits. KIDNEYS: Normal in size and shape. There is no mass, stone or hydronephrosis. ADRENAL GLANDS: Within normal limits. VASCULAR: There is no aortic aneurysm. BOWEL/MESENTERY: The stomach, small bowel, and colon demonstrate no acute abnormality. There is no free intraperitone al air. There is fluid in the peritoneal cavity in the pelvis. ABDOMINAL WALL: Within normal limits. RETROPERITONEUM: There is no lymphadenopathy. BLADDER: No wall thickening or mass. REPRODUCTIVE: The ovaries are normal in size. There is a 1.6 cm cyst of the left ovary. The uterus is unremarkable. There is a moderate amount of free fluid in the pelvis. INGUINAL: There is no lymphadenopathy or hernia. MUSCULOSKELETAL: Within normal limits for patient age. CONCLUSION: 1. Moderate free fluid in the pelvis. 2. Bibasilar mild areas of consolidation or atelectasis being worse on the right. Isai Mckinley MD on November 30, 2017 at 21:30 Board Certified Radiologist. This report was verified electronically.
[2017-11-30] MEDS: CEFUROXIME AXETIL 500 MG TAB PO SCH (22:00)
[2017-12-01] VITALS (8 sets, daily range): BP systolic 101–120; BP diastolic 62–70; PULSE 100–117; RESP 18–19; TEMP 98.4–98.7; O2SAT 97–100
[2017-12-01] MEDS ORDERED: LEVOTHYROXINE SODIUM 25 MCG TAB PO SCH (06:00)
[2017-12-01] MEDS: FUROSEMIDE 20 MG TAB PO SCH (07:45)
[2017-12-01] MEDS: LACTOBACILLUS ACIDOPHILUS TAB PO SCH ×2 (07:45→13:00)
[2017-12-01] MEDS: CEFUROXIME AXETIL 500 MG TAB PO SCH (07:45)
[2017-12-01] MEDS: SERTRALINE HCL 50 MG TAB PO SCH (07:45)
[2017-12-01] MEDS: APIXABAN 5 MG TABLET PO SCH (07:46)
[2017-12-01] MEDS: DOCUSATE SODIUM 50 MG/SENNA 8.6 MG TAB PO SCH (07:46)
[2017-12-01] MEDS: POTASSIUM CHLORIDE 8 MEQ CONTROLLED RELEASE TAB PO SCH (07:46)
[2017-12-01] MEDS: SODIUM CHLORIDE 0.9% FLUSH 10 ML FLUSH IV FLUSH SCH (09:35)
[2017-12-01] MEDS: ONDANSETRON ODT 4 MG TAB PO PRN (10:32)
--- NOTE | 2017-12-01 13:04 | HHI.PR ---
Subjective Remarks 22-year-old female with a past medical history of asthma and recently diagnosed PE, anticoagulated on Eliquis, presents to the emergency department complaining of chest pain. The patient reports that she has been compliant with her Eliquis since her discharge. She states she has severe left-sided chest pain that is worse when she talks and breathes. She also complains of shortness of breath with exertion. Patient states she has been feeling fatigued since her discharge from the hospital. She reports a fever to 103 at home. Positive chills. No cough. No abdominal pain. No nausea/vomiting/diarrhea. No lateralizing signs/symptoms Patient states still with pleuritic chest pain. No active shortness of breath at this time. States no active fevers at this time. No coughing. She denies any diarrhea. She denies any symptoms of dysuria. 5-15 Patient states she is doing ok. Complaining of aching abdominal pain, not associated with her menstrual cycle. Denies any chest pain. States the Chloraseptic spray is helping with her sore throat. 5-16 PATIENT COMPLAINTS OF PAIN ALL OVER DW RN AND PT AND FAMILY STATES SHE IS NOT EATING HAS A SORE THROAT WILL GET CAT SCAN OF ABDOMEN AM LABS MAY ALL BE MENSTRUAL RELATED 5-17 PAIN IS IMPROVED DW RN AND PT AND COMMODITY SUPERVISOR CONTINUE XARELTO CT SCAN OF ABDOMEN AND PELVIS IS STABLE Objective Vitals Vital Signs Date Time Temp Pulse Resp B/P (MAP) Pulse Ox O2 Delivery O2 Flow Rate FiO2 12/01/17 11:15 120/70 (87) 12/01/17 09:12 21 12/01/17 08:00 113 12/01/17 07:15 98.7 115 19 113/62 (79) 99 12/01/17 04:06 109 12/01/17 04:00 98.7 114 19 104/62 (76) 100 12/01/17 03:15 98.7 114 19 104/62 (76) 100 12/01/17 00:21 100 12/01/17 00:01 98.4 113 18 101/66 (78) 99 11/30/17 23:15 98.4 113 18 101/66 (78) 99 11/30/17 20:40 99.4 133 28 105/54 (71) 99 11/30/17 20:03 118 11/30/17 19:16 100.2 126 32 116/70 (85) 99 11/30/17 19:15 Nasal Cannula 2.00 11/30/17 18:14 99 21 11/30/17 15:15 100.3 123 18 120/65 (83) 99 I/O 11/30/17 11/30/17 11/30/17 12/01/17 12/01/17 12/01/17 07:00 15:00 23:00 07:00 15:00 23:00 Intake Total 360 ml 480 ml 360 ml Balance 360 ml 480 ml 360 ml Intake Oral 360 ml 480 ml 360 ml # Voids 3 3 1 # Bowel Movements 0 0 Result Diagram: 11/30/17 0617 11/30/1717 Other Results Laboratory Tests Test 11/30/17 06:17 11/30/17 19:52 White Blood Count 4.3 TH/MM3 Red Blood Count 4.02 MIL/MM3 Hemoglobin 9.3 GM/DL Hematocrit 28.9 % Mean Corpuscular Volume 71.9 FL Mean Corpuscular Hemoglobin 23.1 PG Mean Corpuscular Hemoglobin Concent 32.1 % Red Cell Distribution Width 19.9 % Platelet Count 459 TH/MM3 Mean Platelet Volume 6.9 FL Neutrophils (%) (Auto) 77.6 % Lymphocytes (%) (Auto) 11.8 % Monocytes (%) (Auto) 7.4 % Eosinophils (%) (Auto) 2.8 % Basophils (%) (Auto) 0.4 % Neutrophils # (Auto) 3.3 TH/MM3 Lymphocytes # (Auto) 0.5 TH/MM3 Monocytes # (Auto) 0.3 TH/MM3 Eosinophils # (Auto) 0.1 TH/MM3 Basophils # (Auto) 0.0 TH/MM3 CBC Comment DIFF FINAL Differential Comment Blood Urea Nitrogen 11 MG/DL Creatinine 0.64 MG/DL Random Glucose 81 MG/DL Calcium Level 8.7 MG/DL Sodium Level 137 MEQ/L Potassium Level 4.0 MEQ/L Chloride Level 103 MEQ/L Carbon Dioxide Level 23.4 MEQ/L Anion Gap 11 MEQ/L Estimat Glomerular Filtration Rate 143 ML/MIN Free Thyroxine 1.55 NG/DL Beta HCG, Qualitative LESS THAN 1 MIU/ML Blood Gas Puncture Site RT RADIAL Blood Gas Patient Temperature 98.6 Blood Gas HCO3 23 mmol/L Blood Gas Base Excess 0.0 mmol/L Blood Gas Oxygen Saturation 97 % Arterial Blood pH 7.46 Arterial Blood Partial Pressure CO2 34 mmHg Arterial Blood Partial Pressure O2 122 mmHg Arterial Blood Oxygen Content 12.3 Vol % Arterial Blood Carboxyhemoglobin 1.5 % Arterial Blood Methemoglobin 0.9 % Blood Gas Hemoglobin 8.9 G/DL Oxygen Delivery Device NASAL CANNULA Blood Gas Liter Flow 2 L/M Imaging Last Impressions Chest X-Ray 11/30/17 0000 Signed Impressions: Service Date/Time: Thursday, November 30, 2017 19:37 - CONCLUSION: Minimal density at the right base likely representing minimal atelectasis or consolidation. Isai Mckinley MD Abdomen/Pelvis CT 11/30/17 0000 Signed Impressions: Service Date/Time: Thursday, November 30, 2017 21:00 - CONCLUSION: 1. Moderate free fluid in the pelvis. 2. Bibasilar mild areas of consolidation or atelectasis being worse on the right. Isai Mckinley MD Abdomen X-Ray 11/29/17 0000 Signed Impressions: Service Date/Time: Wednesday, November 29, 2017 11:14 - CONCLUSION: 1. Nonobstructive bowel gas pattern. Larry Saldana MD Objective Remarks GENERAL: Awake and alert and oriented 3 talkative and MORE COOPERATIVE TODAY SKIN: Warm and dry. HEAD: Atraumatic. Normocephalic. EYES: Pupils equal and round. No scleral icterus. No injection or drainage. ENT: No nasal bleeding or discharge. Mucous membranes pink and moist. NECK: Trachea midline. No JVD. CARDIOVASCULAR: Regular rate and rhythm. S1-S2 no S3 or S4 RESPIRATORY: No accessory muscle use. Clear to auscultation. Breath sounds equal bilaterally. GASTROINTESTINAL: Abdomen soft, NONTENDER Hepatic and splenic margins not palpable. MUSCULOSKELETAL: Extremities without clubbing, cyanosis, or edema. No obvious deformities. NEUROLOGICAL: Awake and alert. No obvious cranial nerve deficits. Motor grossly within normal limits. 5 out of 5 muscle strength in the arms and legs. Normal speech. PSYCHIATRIC: Appropriate mood and affect; insight and judgment normal. Procedures none Medications and IVs Current Medications Sodium Chloride 500 ml @ 500 mls/hr BOLUS ONCE IV Last administered on at 01:47; Start 11/28/17 at 01:45; Stop 11/28/17 at 02:44; Status DC Sodium Chloride (NS Flush) 2 ml UNSCH PRN IVF FLUSH AFTER USING IV ACCESS; Start 11/28/17 at 02:15; Stop 11/28/17 at 19:41; Status DC Albuterol/ Ipratropium (Duoneb Neb) 1 ampule ONCE ONCE INH Last administered on 11/28/17at 02:22; Start 11/28/17 at 02:15; Stop 11/28/17 at 02:16; Status DC Acetaminophen (Tylenol) 650 mg ONCE ONCE PO Last administered on 11/28/17at 03: 39; Start 11/28/17 at 03:30; Stop 11/28/17 at 03:31; Status DC Ceftriaxone Sodium 1000 mg/ Sodium Chloride 100 ml @ 200 mls/hr ONCE ONCE IV Last administered on 11/28/17at 03:39; Start 11/28/17 at 03:30; Stop 11/28/17 at 03:59; Status DC Azithromycin 500 mg/Sodium Chloride 250 ml @ 250 mls/hr ONCE ONCE IV Last administered on 11/28/17at 04:22; Start 11/28/17 at 03:30; Stop 11/28/17 at 04:29 ; Status DC Sodium Chloride 250 ml @ 15 mls/hr ONCE ONCE IV ; Start 11/28/17 at 03:45; Stop 11/28/17 at 20:24; Status DC Sodium Chloride 250 ml @ 15 mls/hr ONCE ONCE IV ; Start 11/28/17 at 04:30; Stop 11/28/17 at 21:09; Status DC Sodium Chloride 250 ml @ 15 mls/hr ONCE ONCE IV ; Start 11/28/17 at 04:30; Stop 11/28/17 at 21:09; Status DC Apixaban (Eliquis) 10 mg BID PO Last administered on 12/01/17at 07:46; Start at 09:00 Furosemide (Lasix) 20 mg DAILY PO Last administered on 12/01/17at 07:45; Start 11/28/17 at 09:00 Potassium Chloride (KCl) 8 meq DAILY PO Last administered on 12/01/17at 07:46; Start 11/28/17 at 09:00 Sertraline HCl (Zoloft) 50 mg DAILY PO Last administered on 12/01/17at 07:45; Start 11/28/17 at 09:00 Sodium Chloride (NS Flush) 2 ml UNSCH PRN IV FLUSH FLUSH AFTER USING IV ACCESS ; Start 11/28/17 at 05:00 Sodium Chloride (NS Flush) 2 ml BID IV FLUSH Last administered on 12/01/17at 09: 35; Start 11/28/17 at 09:00 Acetaminophen (Tylenol) 650 mg Q4H PRN PO TEMP > 100.4 Last administered on at 19:39; Start 11/28/17 at 05:00 Ondansetron HCl (Zofran Odt) 4 mg Q6H PRN PO NAUSEA OR VOMITING Last administered on 12/01/17at 10:32; Start 11/28/17 at 05:00 Naloxone HCl (Narcan Inj) 0.4 mg UNSCH PRN IV PUSH SEE LABEL COMMENTS; Start at 05:00 Senna/Docusate Sodium (Nadya-Colace) 1 tab BID PO Last administered on at 07:46; Start 11/28/17 at 09:00 Magnesium Hydroxide (Milk Of Magnesia Liq) 30 ml Q12H PRN PO Mild constipation ; Start 11/28/17 at 05:00 Sennosides (Senokot) 17.2 mg Q12H PRN PO Moderate constipation; Start 11/28/17 at 05:00 Bisacodyl (Dulcolax Supp) 10 mg DAILY PRN RECTAL SEVERE CONSITIPATION; Start at 05:00 Lactulose (Lactulose Liq) 30 ml DAILY PRN PO SEVERE CONSITIPATION; Start at 05:00 Phenol (Chloraseptic Iselin) 1 spray DAILY PRN OROPHARYNG SORE THROAT Last administered on 11/29/17at 08:17; Start 11/28/17 at 18:00 Benzocaine/Menthol (Chloraseptic Clarence) 1 lozenge ONCE ONCE BUCCAL Last administered on 11/28/17at 22:12; Start 11/28/17 at 19:45; Stop 11/28/17 at 19:46 ; Status DC Diphenhydramine HCl (Benadryl) 50 mg ONCE ONCE PO Last administered on at 23:48; Start 11/28/17 at 22:45; Stop 11/28/17 at 22:46; Status DC Ceftriaxone Sodium 1000 mg/ Sodium Chloride 100 ml @ 200 mls/hr Q24H IV Last administered on 11/30/17at 08:15; Start 11/29/17 at 08:00; Stop 11/30/17 at 09:00 ; Status DC Lactobacillus Acidophilus (Lactinex) 1 tab TID PO Last administered on at 07:45; Start 11/29/17 at 13:00 Simethicone (Mylicon Chew) 80 mg PCHS PRN CHEW gas pains Last administered on at 08:17; Start 11/29/17 at 13:15 Cefuroxime Axetil (Ceftin) 500 mg Q12HR PO Last administered on 12/01/17at 07:45 ; Start 11/30/17 at 21:00 Levothyroxine Sodium (Synthroid) 25 mcg ONCE ONCE PO Last administered on 11/30at 14:52; Start 11/30/17 at 13:30; Stop 11/30/17 at 13:31; Status DC Levothyroxine Sodium (Synthroid) 25 mcg DAILY@0600 PO Last administered on 12/01at 05:43; Start 12/01/17 at 06:00 Diatrizoate Meglum/ Diatrizoate Sod ( Gastroview Liq) 18 ml ONCE ONCE PO Last administered on 11/30/17at 13:30; Start 11/30/17 at 13:30; Stop 11/30/17 at 13:31; Status DC Lorazepam (Ativan Inj) 0.5 mg ONCE ONCE IV PUSH Last administered on at 19:30; Start 11/30/17 at 19:30; Stop 11/30/17 at 20:03; Status DC Iohexol (Omnipaque 350 Inj) 75 ml STK-MED ONCE IVCONTRAST Last administered on 11/30/17at 21:17; Start 11/30/17 at 21:17; Stop 11/30/17 at 21:18; Status DC A/P Assessment and Plan Pulmonary embolism/chest pain, diagnosed during previous hospitalization CTA from previous hospitalization showed bilateral filling defects in the left lower lobe and right upper lobe Patient reports compliance with Eliquis -Continue with Eliquis Symptomatic anemia Hemoglobin 7.5, was 10.2 on 09/05/17 -Patient agreed to 1 unit of PRBCs, 11/28 -11/29 Repeat H&H ordered -Continue to monitor -Hematology consulted, await recommendations. UTI, patient with complaints of fever, UA shows small leukocyte esterase -11/29 Urine culture pending -11/29 Probiotics ordered -11/29 Rocephin IV for 2 more doses -11/29 Blood cultures no growth so far Heart murmur Echo showed an EF of 55-60% with a possible bicuspid aortic valve with mild increased gradient across the valve -Cardiology recommends follow-up outpatient for further workup Asthma, no active exacerbation Patient not on any home inhalers -Monitor. Abdominal pain, unknown etiology -KUB ordered NONSPECIFIC PAIN ALL OVER- MAYBE DUE TO MENSTRUAL CYCLE DVT prophylaxis Eliquis. Discharge Planning DC TO HOME TODAY [facility] AND PT Orestes Feldman DO December 01, 2017 13:04
[2017-12-01] MEDS ORDERED: SERT-132 PO (13:09)
[2017-12-01] MEDS ORDERED: Simethicone Chew CHEW (13:09)
[2017-12-01] MEDS ORDERED: FURO20TA PO (13:09)
[2017-12-01] MEDS ORDERED: KLOR8TAB PO (13:09)
[2017-12-01] MEDS ORDERED: LEVO25TA4 PO (13:09)
[2017-12-01] MEDS ORDERED: CEFU1TAB20 PO (13:09)
[2017-12-01] MEDS ORDERED: APIX5TAB PO (13:09)
[2017-12-01] MEDS ORDERED: LACT PO (13:09)
--- NOTE | 2017-12-01 13:12 | HHI.DS ---
Discharge Summary Admission Date November 28, 2017 at 04:12 Discharge Date: December 01, 2017 Admitting Diagnosis Pulmonary Embolism, Anemia (1) PE (pulmonary thromboembolism) ICD Code: I26.99 - Other pulmonary embolism without acute cor pulmonale Diagnosis: Principal (2) Asthma ICD Code: J45.909 - Unspecified asthma, uncomplicated Diagnosis: Secondary (3) Anemia ICD Code: D64.9 - Anemia, unspecified Diagnosis: Principal (4) Pulmonary embolus ICD Code: I26.99 - Other pulmonary embolism without acute cor pulmonale Diagnosis: Principal Status: Acute (5) Fluid overload ICD Code: E87.70 - Fluid overload, unspecified Diagnosis: Secondary Procedures none Brief History - From Admission 22-year-old female with a past medical history of asthma and recently diagnosed PE, anticoagulated on Eliquis, presents to the emergency department complaining of chest pain. The patient reports that she has been compliant with her Eliquis since her discharge. She states she has severe left-sided chest pain that is worse when she talks and breathes. She also complains of shortness of breath with exertion. Patient states she has been feeling fatigued since her discharge from the hospital. She reports a fever to 103 at home. Positive chills. No cough. No abdominal pain. No nausea/vomiting/diarrhea. No lateralizing signs/symptoms CBC/BMP: 11/30/17 0617 11/30/17 0617 Significant Findings Laboratory Tests Test 11/30/17 06:17 11/30/17 19:52 Hemoglobin 9.3 GM/DL (11.6-15.3) Hematocrit 28.9 % (35.0-46.0) Mean Corpuscular Volume 71.9 FL (80.0-100.0) Mean Corpuscular Hemoglobin 23.1 PG (27.0-34.0) Red Cell Distribution Width 19.9 % (11.6-17.2) Platelet Count 459 TH/MM3 (150-450) Mean Platelet Volume 6.9 FL (7.0-11.0) Neutrophils (%) (Auto) 77.6 % (16.0-70.0) Lymphocytes # (Auto) 0.5 TH/MM3 (1.0-4.8) Free Thyroxine 1.55 NG/DL (0.76-1.46) Arterial Blood pH 7.46 (7.380-7.420) Arterial Blood Partial Pressure CO2 34 mmHg (38-42) Arterial Blood Partial Pressure O2 122 mmHg (61-120) Blood Gas Hemoglobin 8.9 G/DL (12.0-16.0) Imaging Last Impressions Chest X-Ray 11/30/17 0000 Signed Impressions: Service Date/Time: Thursday, November 30, 2017 19:37 - CONCLUSION: Minimal density at the right base likely representing minimal atelectasis or consolidation. Isai Mckinley MD Abdomen/Pelvis CT 11/30/17 0000 Signed Impressions: Service Date/Time: Thursday, November 30, 2017 21:00 - CONCLUSION: 1. Moderate free fluid in the pelvis. 2. Bibasilar mild areas of consolidation or atelectasis being worse on the right. Isai Mckinley MD Abdomen X-Ray 11/29/17 0000 Signed Impressions: Service Date/Time: Wednesday, November 29, 2017 11:14 - CONCLUSION: 1. Nonobstructive bowel gas pattern. Larry Saldana MD PE at Discharge GENERAL: Awake and alert and oriented 3 talkative and MORE COOPERATIVE TODAY SKIN: Warm and dry. HEAD: Atraumatic. Normocephalic. EYES: Pupils equal and round. No scleral icterus. No injection or drainage. ENT: No nasal bleeding or discharge. Mucous membranes pink and moist. NECK: Trachea midline. No JVD. CARDIOVASCULAR: Regular rate and rhythm. S1-S2 no S3 or S4 RESPIRATORY: No accessory muscle use. Clear to auscultation. Breath sounds equal bilaterally. GASTROINTESTINAL: Abdomen soft, NONTENDER Hepatic and splenic margins not palpable. MUSCULOSKELETAL: Extremities without clubbing, cyanosis, or edema. No obvious deformities. NEUROLOGICAL: Awake and alert. No obvious cranial nerve deficits. Motor grossly within normal limits. 5 out of 5 muscle strength in the arms and legs. Normal speech. PSYCHIATRIC: Appropriate mood and affect; insight and judgment normal. Hospital Course Patient states still with pleuritic chest pain. No active shortness of breath at this time. States no active fevers at this time. No coughing. She denies any diarrhea. She denies any symptoms of dysuria. 5-15 Patient states she is doing ok. Complaining of aching abdominal pain, not associated with her menstrual cycle. Denies any chest pain. States the Chloraseptic spray is helping with her sore throat. 5-16 PATIENT COMPLAINTS OF PAIN ALL OVER DW RN AND PT AND FAMILY STATES SHE IS NOT EATING HAS A SORE THROAT WILL GET CAT SCAN OF ABDOMEN AM LABS MAY ALL BE MENSTRUAL RELATED 5-17 PAIN IS IMPROVED DW RN AND PT AND OPERATOR ASSISTANT I CEMENTING CONTINUE XARELTO CT SCAN OF ABDOMEN AND PELVIS IS STABLE Pt Condition on Discharge: Good Discharge Disposition: Discharge Home Discharge Time: <= 30 minutes Discharge Instructions DIET: Follow Instructions for: As Tolerated, No Restrictions Speech Therapy-Diet Recommends: Regular Activities you can perform: Regular-No Restrictions Follow up Referrals: Oncology/Hematology - 1 Week with Shyanne Nelson MD PCP Follow-up - 3-5 Days with Rell Chawla DO New Medications: Cefuroxime (Cefuroxime) 500 Mg Tab 500 MG PO Q12HR for Infection, #10 TAB Lactobacillus Acidophilus (Acidophilus/l-Sporogenes) 35 Million Cell-25 Million Cell Tab 1 TAB PO TID for Nutritional Supplement, #90 TAB Levothyroxine (Levothyroxine) 25 Mcg Tab 25 MCG PO DAILY@0600 for Thyroid, #30 TAB [Simethicone Chew] () 80 MG CHEW 80 MG CHEW PCHS PRN for gas pains, #60 CHEW Continued Medications: Apixaban (Eliquis) 5 Mg Tab 5 MG PO BID for Blood Clot Prevention, #60 TAB 0 Refills (This prescription has been renewed) Furosemide (Furosemide) 20 Mg Tab 20 MG PO DAILY for Blood Pressure Management, #30 TAB 0 Refills (This prescription has been renewed) Potassium Chloride ER (Klor-Con 8) 8 Meq Tab 8 MEQ PO DAILY for Electrolyte Replacement, #30 TAB 0 Refills (This prescription has been renewed) Sertraline (Sertraline) 50 Mg Tab 50 MG PO DAILY for Anxiety, #30 TAB 0 Refills (This prescription has been renewed) Discontinued Medications: Apixaban (Eliquis) 5 Mg Tab 10 MG PO BID for Blood Clot Prevention, #14 TAB 0 Refills Orestes Feldman DO December 01, 2017 13:12
[2017-12-02 23:50] LABS: DRVVT 1:1 MIX ND (CORRECTED); DRVVT CONFIRM NEGATIVE (NEGATIVE); HEXAGONAL PHASE CONFIRM WEAKLY POSITIVE (NEGATIVE)
== END 2017-12-01 15:37 | disposition home or self-care (01) | DRG 176 ==
LOC: NEPE 01:04 → NEDA 04:12 → N06A 05:45
PROVIDERS: ADMIT Hospitalist; ATTEND Hospitalist
PROC: 30233N1 Transfusion of Nonautologous Red Blood Cells into Peripheral Vein, Percutaneous Approach (ICD-10-PCS; principal; 2017-11-28)
DX: I26.99 Other pulmonary embolism without acute cor pulmonale (principal); I50.9 Heart failure, unspecified; N39.0 Urinary tract infection, site not specified; D50.9 Iron deficiency anemia, unspecified; J45.909 Unspecified asthma, uncomplicated; D63.8 Anemia in other chronic diseases classified elsewhere; F41.9 Anxiety disorder, unspecified; J02.9 Acute pharyngitis, unspecified; R00.0 Tachycardia, unspecified; R01.1 Cardiac murmur, unspecified; R06.03 Acute respiratory distress; R53.83 Other fatigue; Z79.01 Long term (current) use of anticoagulants
CPT/HCPCS: 36430; 36600; 71045; 74018; 74177; 80048; 80053; 81001; 82550; 82805; 83010; 83605; 83615; 83690; 83735; 84439; 84443; 84484; 84703; 85025; 85597; 85598; 85610; 85613; 85670; 85730; 86140; 86850; 86900; 86901; 86920; 87040; 87086; 87804; 93005; 94664; 96361; 96365; J0456; J0696; J2060; J7040; J7050; P9016; Q0163; Q9963; Q9967

== ENCOUNTER 2017-12-09 04:50 | Inpatient (IN) | payer MEDICAID ==
[2017-12-09] VITALS (12 sets, daily range): BP systolic 111–133; BP diastolic 53–79; PULSE 106–121; RESP 18–36; TEMP 98.6–101.6; O2SAT 94–100
[~2017-12-09] VITALS: Ht 170.2 cm; Wt 50.0 kg
[~2017-12-09 04:50] MED LIST changes: +CEFU1TAB20 PO; +LACT PO; +LEVO25TA4 PO; -OMEP20TA93 PO; -PANT20TA2 PO; -ROBA500T PO; +Simethicone Chew CHEW
[2017-12-09] MEDS ORDERED: IOHEXOL 350 MG/ML 10 ML VIAL (for RAD DIAG) IVCONTRAST ONE (04:51)
--- NOTE | 2017-12-09 05:25 | PD ---
HPI Chief Complaint: Chest Pain Time Seen by Provider: 05:18 Travel History International Travel<30 days: No Contact w/Intl Traveler<30days: No Traveled to known affect area: No History of Present Illness HPI 22-year-old female presents to the emergency department from home by EMS transport for complaint of shortness of breath and chest pain. Patient states that she has had symptoms like this before but she is not sure what the diagnosis was. Patient states she was recently seen by her primary care provider and was started on antibiotic. Patient does not know why she was started on antibiotic. Patient denies cough productive of yellow-green sputum or hemoptysis. Review of patient's medications that she presents to the hospital with at this time identifies she is on Eliquis and review of medical records and indicates that as of November 20 she was diagnosed with pulmonary embolism. Patient denies any lower extremity pain or swelling. No report of orthopnea. Patient has had subjective fever and chills. Patient's last menstrual period was 1 week ago and normal for her. Patient denies being sexually active; denies . Patient's had no abnormal bleeding. Patient is unable to identify exacerbating or alleviating factors. Chest pain is described as 6/10 intensity. Patient also complains of myalgias and arthralgias. Patient recently started on oral antibiotic for possible pneumonia. Patient states she has not improved as an outpatient symptoms are worsening. No reported lower extremity swelling. PFSH Past Medical History Narrative Medical Xarelto therapy asthma anxiety heart murmur congestive heart failure pulmonary embolism hypothyroidism; occasional alcohol use; nursing notes reviewed Asthma: Yes Anxiety: Yes Cardiovascular Problems: Yes (MURMUR) Congestive Heart Failure: Yes Diminished Hearing: No Respiratory: Yes (PE) Immunizations Current: Yes Thyroid Disease: Yes (HYPO) Tetanus Vaccination: > 5 Years Influenza Vaccination: No ?: Not LMP: 1 WEEK AGO : 0 Past Surgical History Surgical History: No Previous Surgery Social History Alcohol Use: Yes (OCC) Tobacco Use: No Substance Use: No Allergies-Medications (Allergen,Severity, Reaction): Coded Allergies: No Known Allergies (Unverified , 11/28/17) Reported Meds & Prescriptions Reported Meds & Active Scripts Active Levothyroxine (Levothyroxine Sodium) 25 Mcg Tab 25 Mcg PO DAILY@0600 Cefuroxime (Cefuroxime Axetil) 500 Mg Tab 500 Mg PO Q12HR Eliquis (Apixaban) 5 Mg Tab 5 Mg PO BID Klor-Con 8 (Potassium Chloride) 8 Meq Tab 8 Meq PO DAILY Furosemide 20 Mg Tab 20 Mg PO DAILY Sertraline (Sertraline HCl) 50 Mg Tab 50 Mg PO DAILY Reported Chloraseptic (Phenol (Antiseptic)) 1.4 % Spr 1 Spr PO DIRECTED Review of Systems Except as stated in HPI: all other systems reviewed are Neg General / Constitutional: Positive: Fever, Chills HENT: No: Congestion (Subjective) Cardiovascular: Positive: Chest Pain or Discomfort, Tachycardia, No: Diaphoresis, Dyspnea on exertion Respiratory: Positive: Cough, Shortness of Breath, Pleuritic Pain Gastrointestinal: Positive: Vomiting (x 4 w blood streaks), Hematemesis (x 4 with blood streaks), No: Nausea, Abdominal Pain Genitourinary: No: Flank Pain Musculoskeletal: Positive: Myalgias, Arthralgias, No: Edema Skin: No Rash Neurologic: Positive: Dizziness, No: Weakness, Syncope Psychiatric: Positive: Anxiety Hematologic/Lymphatic: No: Easy Bruising Physical Exam Narrative GENERAL: Well-developed well-nourished thin female in moderate respiratory distress with tachycardia and tachypnea SKIN: Warm and dry. HEAD: Normocephalic. EYES: No scleral icterus. No injection or drainage. NECK: Supple, trachea midline. No JVD or lymphadenopathy. CARDIOVASCULAR: Increased regular rate and rhythm without murmurs, gallops, or rubs. RESPIRATORY: Breath sounds equal bilaterally. No accessory muscle use. GASTROINTESTINAL: Abdomen soft, non-tender, nondistended. Rectal exam: Normal sphincter tone mucus on exam glove Hemoccult negative MUSCULOSKELETAL: No cyanosis, or edema. BACK: Nontender without obvious deformity. No CVA tenderness. Data Data Last Documented VS Vital Signs Date Time Temp Pulse Resp B/P (MAP) Pulse Ox O2 Delivery O2 Flow Rate FiO2 12/09/17 06:35 106 18 111/61 (78) 98 Room Air 12/09/17 05:06 98.9 Orders Orders Complete Blood Count With Diff (12/09/17 05:19) Basic Metabolic Panel (Bmp) (12/09/17 05:19) Act Partial Throm Time (Ptt) (12/09/17 05:19) Prothrombin Time / Inr (Pt) (12/09/17 05:19) Magnesium (Mg) (12/09/17 05:19) Troponin I (12/09/17 05:19) Urinalysis - C+S If Indicated (12/09/17 05:19) Blood Culture (12/09/17 05:19) Iv Access Insert/Monitor (12/09/17 05:19) Electrocardiogram (12/09/17 05:19) Ecg Monitoring (12/09/17 05:19) Oximetry (12/09/17 05:19) Oxygen Administration (12/09/17 05:19) Chest, Single Ap (12/09/17 05:19) Ct Pulmonary Angiogram (12/09/17 05:19) Sodium Chloride 0.9% Flush (Ns Flush) (12/09/17 05:30) Sodium Chlorid 0.9% 500 Ml Inj (Ns 500 M (12/09/17 05:30) Ed Urine Pregnancytest Poc (12/09/17 05:19) Morphine Inj (Morphine Inj) (12/09/17 06:30) Metoclopramide Inj (Reglan Inj) (12/09/17 06:30) Iohexol 350 Inj (Omnipaque 350 Inj) (12/09/17 04:51) Labs Laboratory Tests Test 12/09/17 05:20 White Blood Count 5.3 TH/MM3 Red Blood Count 3.18 MIL/MM3 Hemoglobin 7.3 GM/DL Hematocrit 23.0 % Mean Corpuscular Volume 72.5 FL Mean Corpuscular Hemoglobin 23.1 PG Mean Corpuscular Hemoglobin Concent 31.9 % Red Cell Distribution Width 21.2 % Platelet Count 345 TH/MM3 Mean Platelet Volume 8.1 FL Neutrophils (%) (Auto) 81.8 % Lymphocytes (%) (Auto) 9.3 % Monocytes (%) (Auto) 7.4 % Eosinophils (%) (Auto) 1.1 % Basophils (%) (Auto) 0.4 % Neutrophils # (Auto) 4.3 TH/MM3 Lymphocytes # (Auto) 0.5 TH/MM3 Monocytes # (Auto) 0.4 TH/MM3 Eosinophils # (Auto) 0.1 TH/MM3 Basophils # (Auto) 0.0 TH/MM3 CBC Comment DIFF FINAL Differential Comment Prothrombin Time 13.0 SEC Prothromb Time International Ratio 1.3 RATIO Activated Partial Thromboplast Time 34.7 SEC Blood Urea Nitrogen 24 MG/DL Creatinine 1.04 MG/DL Random Glucose 109 MG/DL Calcium Level 8.4 MG/DL Magnesium Level 2.1 MG/DL Sodium Level 138 MEQ/L Potassium Level 4.0 MEQ/L Chloride Level 102 MEQ/L Carbon Dioxide Level 26.8 MEQ/L Anion Gap 9 MEQ/L Estimat Glomerular Filtration Rate 82 ML/MIN Troponin I LESS THAN 0.02 NG/ML MDM Medical Decision Making Medical Screen Exam Complete: Yes Emergency Medical Condition: Yes Medical Record Reviewed: Yes Interpretation(s) Vital Signs Date Time Temp Pulse Resp B/P (MAP) Pulse Ox O2 Delivery O2 Flow Rate FiO2 12/09/17 06:35 106 18 111/61 (78) 98 Room Air 12/09/17 05:25 99 Room Air 12/09/17 05:06 98.9 117 18 117/78 (91) 99 CBC & BMP Diagram 12/09/17 05:20 Calcium Level 8.4 L, Magnesium Level 2.1 Vital Signs Date Time Temp Pulse Resp B/P (MAP) Pulse Ox O2 Delivery O2 Flow Rate FiO2 12/09/17 06:35 106 18 111/61 (78) 98 Room Air 12/09/17 05:25 99 Room Air 12/09/17 05:06 98.9 117 18 117/78 (91) 99 Differential Diagnosis Extending pulmonary embolism, failed anticoagulation therapy, pneumothorax, pneumonia, anemia, CHF Narrative Course Well-developed well-nourished thin female in obvious respiratory distress with tachypnea and tachycardia Reglan IV access obtained specimens collected and sent for resulting imaging study with chest x-ray and CT pulmonary angiogram [id number] test ordered Patient administered morphine 3 mg IV for complaint of myalgias arthralgias and right-sided pleuritic chest pain Patient denies any nausea has had no vomiting in the emergency department but reports over the past 4 days she has had some intermittent vomiting with streaks of blood; denies any diarrhea and denies any bloody stool or black tarry stool; last period was 1 week ago and normal for her does not report heavy bleeding or clots. Rectal exam normal sphincter tone mucus on glove is Hemoccult negative Patient's heart rate has improved after IV fluids but continues to complain of pain Patient identified to have recurrent anemia hemoglobin 7.3 this is down from November 28 admission hemoglobin was 9.3 prior to this November 20 hemoglobin was 7.8 patient required transfusion; type and screen ordered Urinalysis pending [id number] hCG negative CT pulmonary angiogram negative for PE Call placed to [facility] service; discussed with Dr Chidi Rodriguez Point of Care Internal Pos. & Neg. Controls: Passed Fecal Specimen Occult Blood: Negative Sepsis Criteria SIRS Criteria (2 or more): Heart rate over 90 Physician Communication Physician Communication discussed with Dr Murillo --- OBS Diagnosis Primary Impression: Chest pain Additional Impressions: Anemia Gastritis Admitting Information Admitting Physician Requests: Observation Suyapa Fernandez MD December 09, 2017 05:25
[2017-12-09] MEDS ORDERED: SODIUM CHLORID 0.9% 500 ML INJ 500 ML IV ONE (05:30)
[2017-12-09] MEDS ORDERED: SODIUM CHLORIDE 0.9% FLUSH 10 ML FLUSH IVF PRN (05:30)
[2017-12-09 05:43] LABS: AUTOMATED NEUTROPHIL # 4.3 TH/MM3 (1.8-7.7); BASOPHIL % 0.4 % (0.0-2.0); EOSINOPHIL # 0.1 TH/MM3 (0-0.4); EOSINOPHIL % 1.1 % (0.0-4.0); HEMOGLOBIN 7.3 GM/DL (11.6-15.3); LYMPH % 9.3 % (9.0-44.0); LYMPHOCYTE # 0.5 TH/MM3 (1.0-4.8); MEAN CELL VOLUME 72.5 FL (80.0-100.0); MEAN CORPUSCULAR HEMOGLOBIN 23.1 PG (27.0-34.0); MEAN CORPUSCULAR HGB CONC 31.9 % (32.0-36.0); MEAN PLATELET VOLUME 8.1 FL (7.0-11.0); MONO % 7.4 % (0.0-8.0); MONOCYTE # 0.4 TH/MM3 (0-0.9); NEUT % 81.8 % (16.0-70.0); PLATELET COUNT 345 TH/MM3 (150-450); RED BLOOD COUNT 3.18 MIL/MM3 (4.00-5.30); RED CELL DISTRIBUTION WIDTH 21.2 % (11.6-17.2); WHITE BLOOD COUNT 5.3 TH/MM3 (4.0-11.0)
[2017-12-09 05:54] LABS: INTERNATIONAL NORMALIZED RATIO 1.3 RATIO
--- NOTE | 2017-12-09 05:55 | RADRPT ---
EXAM DATE: 12/09/2017 5:38 AM EDT AGE/SEX: 22 years / Female INDICATIONS: Short of breath. CLINICAL DATA: This is the patient's initial encounter. Patient reports that signs and symptoms have been present for 2 days and indicates a pain score of 7/10. MEDICAL/SURGICAL HISTORY: Asthma. Blood clot. P.E. None. COMPARISON: [facility] [place], CHEST SINGLE AP, 11/30/2017. . FINDINGS: A single AP view of the chest demonstrates the lungs to be symmetrically aerated without evidence of mass, infiltrate or effusion. The cardiomediastinal contours are unremarkable. Osseous structures a re intact. CONCLUSION: No acute cardiopulmonary process. Electronically signed by: Isai Mckinley MD 12/09/2017 5:54 AM EDT
[2017-12-09 06:08] LABS: BICARBONATE 26.8 MEQ/L (21.0-32.0); BLOOD UREA NITROGEN 24 MG/DL (7-18); CALCIUM 8.4 MG/DL (8.5-10.1); CHLORIDE 102 MEQ/L (98-107); CREATININE 1.04 MG/DL (0.50-1.00); GLOMERULAR FILTRATION RATE 82 ML/MIN (>89); GLUCOSE,RANDOM 109 MG/DL (74-106); MAGNESIUM 2.1 MG/DL (1.5-2.5); SODIUM (NA) 138 MEQ/L (136-145)
[2017-12-09 06:13] LABS: TROPONIN I LESS THAN 0.02 NG/ML (0.02-0.05)
[2017-12-09] MEDS ORDERED: METOCLOPRAMIDE HCL 10 MG/2 ML VIAL IV PUSH ONE (06:30)
[2017-12-09] MEDS ORDERED: MORPHINE SULFATE 4 MG/ML INJ IV PUSH ONE (06:30)
[2017-12-09] MEDS ORDERED: CHLO1.4S2 PO (07:06)
--- NOTE | 2017-12-09 07:36 | RADRPT ---
EXAM DATE: 12/09/2017 7:11 AM EDT AGE/SEX: 22 years / Female INDICATIONS: Chest pain. CLINICAL DATA: This is the patient's initial encounter. Patient reports that signs and symptoms have been present for 3 days and indicates a pain score of 8/10. MEDICAL/SURGICAL HISTORY: Congestive heart failure. pulmonary emboli. None. RADIATION DOSE: 5.16 CTDI (mGy) COMPARISON: CT pulmonary angiography 11/20/2017. TECHNIQUE: Volumetric scanning was performed using a multi-row detector CT scanner during bolus infu ty of 75 ml Omnipaque 350 (iohexol) nonionic water-soluble contrast as a single exam dose. The arnol a was post processed with a variety of visualization algorithms including full volume maximum intensi ty projection and sliding thin slab reformation. Using automated exposure control and adjustment of the mA and/or kV according to patient size, radiation dose was kept as low as reasonably achievable t o obtain optimal diagnostic quality images. FINDINGS: Pulmonary Arteries: No filling defects are seen in the pulmonary arteries out to the subsegmental ve ssels. The left and right pulmonary arteries are normal in diameter. Lung: Mild bibasilar atelectasis. Otherwise lung daniel are clear and well aerated. Effusion: None. Mediastinum: No evidence of mediastinal or hilar adenopathy. Other: The axilla is unremarkable. CONCLUSION: 1. No evidence of pulmonary embolism. 2. Mild bibasilar atelectasis, left greater than right.. Electronically signed by: Yury Márquez MD 12/09/2017 7:35 AM EDT
[2017-12-09] MEDS ORDERED: SODIUM CHLORIDE 0.9% FLUSH 10 ML FLUSH IV FLUSH PRN (08:45)
[2017-12-09] MEDS ORDERED: PANTOPRAZOLE SODIUM 40 MG VIAL IV PUSH ONE (08:45)
[2017-12-09] MEDS ORDERED: ACETAMINOPHEN 325 MG TAB PO PRN (08:45)
[2017-12-09] MEDS ORDERED: BISACODYL 10 MG SUPP RECTAL PRN (08:45)
[2017-12-09] MEDS ORDERED: LACTULOSE SYRUP 20 GM/30 ML CUP PO PRN (08:45)
[2017-12-09] MEDS ORDERED: ACETAMINOPHEN/HYDROcodone 325 MG/5 MG TAB PO PRN (08:45)
[2017-12-09] MEDS ORDERED: MAGNESIUM HYDROXIDE SUSP 30 ML CUP PO PRN (08:45)
[2017-12-09] MEDS ORDERED: SENNOSIDES 8.6 MG TAB PO PRN (08:45)
[2017-12-09] MEDS ORDERED: SODIUM CHLOR 0.9% 250 ML INJ 250 ML IV ONE (09:00)
[2017-12-09] MEDS ORDERED: SODIUM CHLOR 0.9% 1000 ML INJ 1,000 ML IV SCH (09:00)
[2017-12-09] MEDS ORDERED: ONDANSETRON ODT 4 MG TAB PO PRN (09:15)
[2017-12-09] MEDS: SODIUM CHLORIDE 0.9% FLUSH 10 ML FLUSH IV FLUSH SCH ×3 (10:49→20:14)
--- NOTE | 2017-12-09 10:53 | PD.CONS ---
HPI History of Present Illness This is a 22 year old with a past medical history of asthma and recently diagnosed PE ( November 20), anticoagulated on Eliquis, EF 55-60%, possible bicuspid aortic valve with mild increased gradient across the valve presents to the emergency department complaining of chest pain. Labs revealed hgb of 7.3. and PABLO. Patient is somewhat poor historian, endorses hematemesis few days ago, few times a day, not able to specify, cant recall last time she had an episode. Endorses associated diarrhea and abd pain same time but subsided for few days. Denies melena, or hematochezia. Denies previous hx of this, denies NSAIDs or alcohol intake. Endorses wt loss of 20 lbs over few weeks, states she hasn't been able to eat regular food, has been living on apple sauce and fruits, it is very painful to swallow. The pain locates to right chest area, worse with eating. Pt had similar presentation on recent admission and was evaluated by cardiology. CT of A/P on november 28 showed moderate free fluid in the pelvis, bibasilar mild areas of consolidation or atelectasis being worse on the right. CT angiogram December 09 negative for PE. States, Menstrual cycles are heavy some times. Blood ordered, PPI as well. Pt is symptomatic, tachycardiac. (Ly Harris) PFSH Past Medical History Asthma PE anemia Past Surgical History None (Ly Harris) Coded Allergies: No Known Allergies (Unverified , 11/28/17) Medications Current Medications Medications (Trade) Dose Ordered Sig/Yordan Route Start Time Stop Time Status Last Admin Sodium Chloride 1,000 ml @ 100 mls/hr Q10H IV 12/09/17 09:00 12/09/17 18:59 (NS Flush) 2 ml UNSCH PRN IV FLUSH 12/09/17 08:45 (NS Flush) 2 ml BID IV FLUSH 12/09/17 09:00 (Zofran Odt) 4 mg Q6H PRN PO 12/09/17 09:15 (Tylenol) 650 mg Q6H PRN PO 12/09/17 08:45 ([place] 5-325 Mg) 1 tab Q4H PRN PO 12/09/17 08:45 ([place] 7.5-325 Mg) 1 tab Q4H PRN PO 12/09/17 08:45 (Milk Of Magnesia Liq) 30 ml Q12H PRN PO 12/09/17 08:45 (Senokot) 17.2 mg Q12H PRN PO 12/09/17 08:45 (Dulcolax Supp) 10 mg DAILY PRN RECTAL 12/09/17 08:45 (Lactulose Liq) 30 ml DAILY PRN PO 12/09/17 08:45 Sodium Chloride 250 ml @ 15 mls/hr ONCE ONCE IV 12/09/17 09:00 12/10/17 01:39 Family History No family hx of colon cancer Social History No alcohol No smoking No illicit drug use (Ly Harris) Review of Systems Constitutional: COMPLAINS OF: Fatigue, Weight loss Endocrine: DENIES: Polyuria Eyes: DENIES: Double Vision Ears, nose, mouth, throat: DENIES: Hoarseness Respiratory: COMPLAINS OF: Shortness of breath, DENIES: Hemoptysis Cardiovascular: DENIES: Lower Extremity Edema Gastrointestinal: COMPLAINS OF: Abdominal pain, Diarrhea, Nausea, Vomiting, Difficulty Swallowing, Anorexia, Hematemesis, DENIES: Black stools, Bloody stools, Constipation, Odynophagia, Swelling of Abdomen, Heartburn Genitourinary: DENIES: Hematuria Musculoskeletal: DENIES: Back pain Integumentary: DENIES: Jaundice Hematologic/lymphatic: DENIES: Bruising Immunologic/allergic: DENIES: Eczema Neurologic: DENIES: Abnormal gait Psychiatric: DENIES: Anxiety (Ly Harris) GI Exam Vitals I&O Vital Signs Date Time Temp Pulse Resp B/P (MAP) Pulse Ox O2 Delivery O2 Flow Rate FiO2 12/09/17 06:35 106 18 111/61 (78) 98 Room Air 12/09/17 06:00 110 20 119/68 (85) 99 Room Air 12/09/17 05:30 112 18 117/78 (91) 100 Room Air 12/09/17 05:25 99 Room Air 12/09/17 05:06 98.9 117 18 117/78 (91) 99 Imaging Last Impressions Chest X-Ray 12/09/17518 Signed Impressions: CONCLUSION: No acute cardiopulmonary process. CT Angiography 12/09/17518 Signed Impressions: CONCLUSION: 1. No evidence of pulmonary embolism. 2. Mild bibasilar atelectasis, left greater than right.. Laboratory Test 12/09/17 05:20 White Blood Count 5.3 TH/MM3 Red Blood Count 3.18 MIL/MM3 Hemoglobin 7.3 GM/DL Hematocrit 23.0 % Mean Corpuscular Volume 72.5 FL Mean Corpuscular Hemoglobin 23.1 PG Mean Corpuscular Hemoglobin Concent 31.9 % Red Cell Distribution Width 21.2 % Platelet Count 345 TH/MM3 Mean Platelet Volume 8.1 FL Neutrophils (%) (Auto) 81.8 % Lymphocytes (%) (Auto) 9.3 % Monocytes (%) (Auto) 7.4 % Eosinophils (%) (Auto) 1.1 % Basophils (%) (Auto) 0.4 % Neutrophils # (Auto) 4.3 TH/MM3 Lymphocytes # (Auto) 0.5 TH/MM3 Monocytes # (Auto) 0.4 TH/MM3 Eosinophils # (Auto) 0.1 TH/MM3 Basophils # (Auto) 0.0 TH/MM3 CBC Comment DIFF FINAL Differential Comment Prothrombin Time 13.0 SEC Prothromb Time International Ratio 1.3 RATIO Activated Partial Thromboplast Time 34.7 SEC Blood Urea Nitrogen 24 MG/DL Creatinine 1.04 MG/DL Random Glucose 109 MG/DL Calcium Level 8.4 MG/DL Magnesium Level 2.1 MG/DL Sodium Level 138 MEQ/L Potassium Level 4.0 MEQ/L Chloride Level 102 MEQ/L Carbon Dioxide Level 26.8 MEQ/L Anion Gap 9 MEQ/L Estimat Glomerular Filtration Rate 82 ML/MIN Troponin I LESS THAN 0.02 NG/ML Date/Time Source Procedure Growth Status 12/09/17 05:30 Blood Peripheral Aerobic Blood Culture Pending Received 12/09/17 05:30 Blood Peripheral Anaerobic Blood Culture Pending Received Physical Examination HEENT: normocephalic; atraumatic; no jaundice. CHEST: Chest is clear to auscultation and percussion. CARDIAC: Tachycardiac ABDOMEN: Soft, nondistended, mid abd tenderness ; no hepatosplenomegaly; bowel sounds are present in all four quadrants. EXTREMITIES: No clubbing, cyanosis, or edema. SKIN: Normal; no rash; no jaundice. PROCUREMENT PROFESSIONAL: No focal deficits; alert and oriented times three. (Ly Harris) Assessment and Plan Plan - Anemia/hematemesis- Reports hx of few days of hematemesis associated with diarrhea and abd pain but subsided and hasn't had any for few days, however was tender on physical exam Recent diagnosis of PE, on Eliquis. . Denies previous hx of this, denies NSAIDs or alcohol intake.Pt is symptomatic, tachycardiac. Blood transfusion and PPI - Anemia- seems to be chronic but worsening, hg on admission 7.3 was 9.3 on 11/30 , she reports heavy periods - Dysphagia/odynophagia, wt loss of 20 Lbs in past few weeks- Has been on diet that consist of apple sauce, fruits and soft diet. Stats pain locates to right chest with eating - Diffused abd pain- CT of A/P on november 28 showed moderate free fluid in the pelvis, bibasilar mild areas of consolidation or atelectasis being worse on the right. - PABLO- likely due to above - Recent diagnosis of PE on Eliquis CT angiogram December 09 negative for PE. - Hx of Asthma per attending - EF 55-60%, possible bicuspid aortic valve with mild increased gradient across the valve Plan: - NPO - EGD today - Hold Eliquis for now - Monitor hh - Transfuse as needed - Cont. PPI - consider VOICE ENGINEER consult - Consider colonoscopy at some point - Supportive care - Pt seen and examined by Dr. Felder and myself and this note is written on his behalf. (Ly Harris) Physician Comments Patient seen and examined Agree with above Continue with current supportive care Monitor labs Plan on an EGD today (Obey Felder MD) Ly Harris December 09, 2017 10:53 Obey Felder MD December 09, 2017 12:24
[2017-12-09] MEDS ORDERED: PROPOFOL 200 MG/20 ML AMP IV ONE (12:00)
[2017-12-09] MEDS ORDERED: LIDOCAINE HCL 1% PF 5 ML SYRINGE OTHER ONE (12:00)
[2017-12-09] MEDS ORDERED: DO NOT ADM ANY ANTICOAGULANT DRUGS PRN (13:41)
--- NOTE | 2017-12-09 13:50 | PD.PROCEDR ---
GI Procedure PROCEDURE PERFORMED EGD with biopsy and dilation INDICATION FOR PROCEDURE Anemia, hematemesis, dysphagia, odynophagia PROCEDURE: The procedure, risks and benefits were discussed with Patient/POA and informed consent was obtained. Anesthesia sedated Patient with Diprivan. Patient was placed in the left lateral decubitus position. EGD: The Pentax videoscope was introduced through the oropharynx and advanced to the second portion of the duodenum under direct visualization. Retroflexion was performed in the stomach. FINDINGS: The esophagus this appeared to be unremarkable and within normal limits this was dilated with a size 14 savory dilator over guidewire postdilatation view was unremarkable biopsies were taken from the distal esophagus for further evaluation The stomach this was normal The duodenum this was normal ESTIMATED BLOOD LOSS: None SPECIMENS REMOVED: Esophageal biopsy COMPLICATIONS: None IMPRESSION: Normal EGD PLAN: Await biopsies Continue with current supportive care Advance diet Obey Felder MD December 09, 2017 13:50
[2017-12-09] MEDS ORDERED: *morphine SULFATE 4 MG/ML PERIprocedure ONLY ONE (14:42)
--- NOTE | 2017-12-09 14:52 | HHI.HP ---
[facility] Rell Chawla DO Admission Diagnosis chest pain; anemia; gastritis Diagnoses: Chief Complaint: "I can't eat", vomitting Travel History International Travel<30 Days: No Contact w/Intl Traveler <30 Da: No Traveled to Known Affected Are: No History of Present Illness 22-year-old female who was recently diagnosed with a pulmonary embolism back in November 20 currently on Eliquis was another readmission recently for recurrent right-sided chest pain and suspected upper respiratory infection re- presents back to the emergency room with a history of 2-3 days of hematemesis, poor appetite associated with intermittent abdominal discomfort. Patient is not the best historian. During the previous hospitalization patient had a decrease in hemoglobin and did receive a blood transfusion. At this time, patient declined having a blood transfusion and would prefer to repeat another blood count tomorrow morning prior to considering receiving a transfusion. He has she denies any unusual oral food intake. She denies any diarrhea associated with the nausea and poor appetite. She is not sure if she has had seen blood in the stools or black tarry stools. She denies symptoms of dysuria or frequency urgency. She reports she completed her menstrual cycle last week and usually does have heavy menstrual cycles. She states this month is not more heavy than normal. Review of Systems Constitutional: COMPLAINS OF: Change in appetite, DENIES: Fatigue, Fever, Chills Endocrine: DENIES: Heat/cold intolerance Eyes: DENIES: Blurred vision, Eye pain, Vision loss Ears, nose, mouth, throat: DENIES: Hearing loss, Nasal discharge, Throat pain, Ear Pain, Sinus Pain Respiratory: DENIES: Cough, Shortness of breath Cardiovascular: DENIES: Chest pain, Palpitations, Dyspnea on Exertion, Lower Extremity Edema Gastrointestinal: COMPLAINS OF: Abdominal pain, Nausea, Vomiting, Anorexia, DENIES: Black stools, Bloody stools, Constipation, Diarrhea Genitourinary: COMPLAINS OF: Dysmenorrhea, DENIES: Dysuria Musculoskeletal: DENIES: Joint pain, Muscle aches, Stiffness Integumentary: DENIES: Rash Hematologic/lymphatic: DENIES: Bruising, Lymphadenopathy Immunologic/allergic: DENIES: Eczema Neurologic: DENIES: Headache, Localized weakness, Paresthesias Psychiatric: DENIES: Anxiety, Depression, Suicidal Ideation Past Family Social History Past Medical History Asthma PE anemia Bicuspid aortic valve with a history of heart murmur Hypothyroidism Past Surgical History None Reported Medications Levothyroxine (Levothyroxine Sodium) 25 Mcg Tab 25 Mcg PO DAILY@0600 Cefuroxime (Cefuroxime Axetil) 500 Mg Tab 500 Mg PO Q12HR Eliquis (Apixaban) 5 Mg Tab 5 Mg PO BID Klor-Con 8 (Potassium Chloride) 8 Meq Tab 8 Meq PO DAILY Furosemide 20 Mg Tab 20 Mg PO DAILY Sertraline (Sertraline HCl) 50 Mg Tab 50 Mg PO DAILY Allergies: Coded Allergies: No Known Allergies (Unverified , 11/28/17) Family History No family hx of colon cancer Social History No alcohol No smoking No illicit drug use Physical Exam Vital Signs Vital Signs Date Time Temp Pulse Resp B/P (MAP) Pulse Ox O2 Delivery O2 Flow Rate FiO2 12/09/17 11:20 120 23 133/74 (93) 98 12/09/17 10:36 97 Nasal Cannula 2.00 12/09/17 08:30 117 27 127/70 (89) 98 Nasal Cannula 2.00 12/09/17 07:30 110 23 127/70 (89) 98 Room Air 12/09/17 06:35 106 18 111/61 (78) 98 Room Air 12/09/17 06:00 110 20 119/68 (85) 99 Room Air 12/09/17 05:30 112 18 117/78 (91) 100 Room Air 12/09/17 05:25 99 Room Air 12/09/17 05:06 98.9 117 18 117/78 (91) 99 Physical Exam GENERAL: This is a well-nourished, well-developed patient, in no apparent distress. SKIN: No rashes, ecchymoses or lesions. Cool and dry. HEAD: Atraumatic. Normocephalic. No temporal or scalp tenderness. EYES: Pupils equal round and reactive. Extraocular motions intact. No scleral icterus. No injection or drainage. ENT: Nose without bleeding, purulent drainage or septal hematoma. NECK: Trachea midline. No JVD or lymphadenopathy. Supple, nontender, no meningeal signs. CARDIOVASCULAR: Regular rate and rhythm with 3/6 systolic ejection murmur RESPIRATORY: Clear to auscultation. Breath sounds equal bilaterally. No wheezes , rales, or rhonchi. GASTROINTESTINAL: Abdomen soft, right upper quadrant tenderness with no rebound or guarding normoactive bowel sounds MUSCULOSKELETAL: Extremities without clubbing, cyanosis, or edema. NEUROLOGICAL: Awake and alert to person place time and situation. Cranial nerves II through XII intact. Motor and sensory grossly within normal limits. Five out of 5 muscle strength in all muscle groups. Normal speech. Laboratory Laboratory Tests Test 12/09/17 05:20 White Blood Count 5.3 Red Blood Count 3.18 Hemoglobin 7.3 Hematocrit 23.0 Mean Corpuscular Volume 72.5 Mean Corpuscular Hemoglobin 23.1 Mean Corpuscular Hemoglobin Concent 31.9 Red Cell Distribution Width 21.2 Platelet Count 345 Mean Platelet Volume 8.1 Neutrophils (%) (Auto) 81.8 Lymphocytes (%) (Auto) 9.3 Monocytes (%) (Auto) 7.4 Eosinophils (%) (Auto) 1.1 Basophils (%) (Auto) 0.4 Neutrophils # (Auto) 4.3 Lymphocytes # (Auto) 0.5 Monocytes # (Auto) 0.4 Eosinophils # (Auto) 0.1 Basophils # (Auto) 0.0 CBC Comment DIFF FINAL Differential Comment Prothrombin Time 13.0 Prothromb Time International Ratio 1.3 Activated Partial Thromboplast Time 34.7 Blood Urea Nitrogen 24 Creatinine 1.04 Random Glucose 109 Calcium Level 8.4 Magnesium Level 2.1 Sodium Level 138 Potassium Level 4.0 Chloride Level 102 Carbon Dioxide Level 26.8 Anion Gap 9 Estimat Glomerular Filtration Rate 82 Troponin I LESS THAN 0.02 Date/Time Source Procedure Growth Status 12/09/17 05:30 Blood Peripheral Aerobic Blood Culture Pending Received 12/09/17 05:30 Blood Peripheral Anaerobic Blood Culture Pending Received Result Diagram: 12/09/1751912/09/17519 Imaging Last Impressions Chest X-Ray 12/09/17518 Signed Impressions: CONCLUSION: No acute cardiopulmonary process. CT Angiography 12/09/17518 Signed Impressions: CONCLUSION: 1. No evidence of pulmonary embolism. 2. Mild bibasilar atelectasis, left greater than right.. Caprini VTE Risk Assessment Caprini VTE Risk Assessment: Mod/High Risk (score >= 2) VTE Pharm Contraindication: Hemorrhage Caprini Risk Assessment Model Point Value = 1 Point Value = 2 Point Value = 3 Point Value = 5 Age 41-60 Minor surgery BMI > 25 kg/m2 Swollen legs Varicose veins or History of unexplained or recurrent spontaneous Oral contraceptives or hormone replacement Sepsis (< 1 month) Serious lung disease, including pneumonia (< 1 month) Abnormal pulmonary function Acute myocardial infarction Congestive heart failure (< 1 month) History of inflammatory bowel disease Medical patient at bed rest Age 61-74 Arthroscopic surgery Major open surgery (> 45 min) Laparoscopic surgery (> 45 min) Malignancy Confined to bed (> 72 hours) Immobilizing plaster cast Central venous access Age >= 75 History of VTE Family history of VTE Factor V Leiden Prothrombin [id number] Lupus anticoagulant Anticardiolipin antibodies Elevated serum homocysteine Heparin-induced thrombocytopenia Other congenital or acquired thrombophilia Stroke (< 1 month) Elective arthroplasty Hip, pelvis, or leg fracture Acute spinal cord injury (< 1 month) Prophylaxis Regimen Total Risk Factor Score Risk Level Prophylaxis Regimen 0-1 Low Early ambulation 2 Moderate Order ONE of the following: *Sequential Compression Device (SCD) *Heparin 5000 units SQ BID 3-4 Higher Order ONE of the following medications: *Heparin 5000 units SQ TID *Enoxaparin/Lovenox 40 mg SQ daily (WT < 150 kg, CrCl > 30 mL/min) *Enoxaparin/Lovenox 30 mg SQ daily (WT < 150 kg, CrCl > 10-29 mL/min) *Enoxaparin/Lovenox 30 mg SQ BID (WT < 150 kg, CrCl > 30 mL/min) AND/OR *Sequential Compression Device (SCD) 5 or more Highest Order ONE of the following medications: *Heparin 5000 units SQ TID (Preferred with Epidurals) *Enoxaparin/Lovenox 40 mg SQ daily (WT < 150 kg, CrCl > 30 mL/min) *Enoxaparin/Lovenox 30 mg SQ daily (WT < 150 kg, CrCl > 10-29 mL/min) *Enoxaparin/Lovenox 30 mg SQ BID (WT < 150 kg, CrCl > 30 mL/min) AND *Sequential Compression Device (SCD) Assessment and Plan Assessment and Plan 1. Hematemesis with anorexia and associated abdominal pain-will obtain an LFT and lipase for further evaluation and workup. Patient had a EGD performed with GI service which revealed normal findings. Appreciate GI consultation and await further recommendations. Patient may need further evaluation with colonoscopy. CT abdomen pelvis done back in 11/30 was unremarkable Which only showed moderate free fluid in the pelvis and bibasilar mall areas of consolidation or atelectasis. GI recommend holding Eliquis for now until further evaluation. 2. History of pulmonary embolism - consideration restarting Eliquis when cleared by GI. 3. Acute on chronic anemia the patient on chronic anticoagulation-patient declined transfusion today we will repeat another hemoglobin in the morning to evaluate for stability. 4. DVT prophylaxis - SCDs Shaniqua Murillo MD December 09, 2017 14:52
[2017-12-09 15:45] LABS: ALBUMIN 2.2 GM/DL (3.4-5.0); ALT (GPT) 55 U/L (9-42); AST (GOT) 126 U/L (16-38); DIRECT BILIRUBIN ADULT 0.2 MG/DL (0.0-0.2)
[2017-12-09 15:46] LABS: ALKALINE PHOSPHATASE 162 U/L (45-117); INDIRECT BILIRUBIN 0.2 MG/DL (0.0-0.8); TOTAL BILIRUBIN ADULT 0.4 MG/DL (0.2-1.0); TOTAL PROTEIN 7.8 GM/DL (6.4-8.2)
--- NOTE | 2017-12-09 18:28 | EKG ---
Date Performed: 12/09/2017 Time Performed: 05:07:54 PTAGE: 22 years EKG: SINUS TACHYCARDIA Since previous tracing, no significant change noted ABNORMAL RHYTHM ECG PREVIOUS TRACING : 11/28/2017 01.16 DOCTOR: Salina Beltran Interpretating Date/Time 12/09/2017 18:26:43
[2017-12-09] MEDS: ACETAMINOPHEN/HYDROcodone 325 MG/7.5 MG TAB PO PRN (20:14)
[2017-12-09] MEDS ORDERED: ACETAMINOPHEN 1000 MG/100 ML 65 ML IV ONE (23:15)
[2017-12-10] VITALS (10 sets, daily range): BP systolic 109–135; BP diastolic 64–79; PULSE 105–119; RESP 15–20; TEMP 97.5–99.2; O2SAT 96–100
[2017-12-10] MEDS: ACETAMINOPHEN/HYDROcodone 325 MG/7.5 MG TAB PO PRN ×2 (02:42→06:36)
[2017-12-10] MEDS: LEVOTHYROXINE SODIUM 25 MCG TAB PO SCH (05:53)
[2017-12-10 07:45] LABS: AUTOMATED NEUTROPHIL # 3.7 TH/MM3 (1.8-7.7); BASOPHIL % 0.3 % (0.0-2.0); EOSINOPHIL # 0.1 TH/MM3 (0-0.4); EOSINOPHIL % 1.4 % (0.0-4.0); HEMATOCRIT 24.4 % (35.0-46.0); HEMOGLOBIN 7.7 GM/DL (11.6-15.3); LYMPH % 10.3 % (9.0-44.0); LYMPHOCYTE # 0.5 TH/MM3 (1.0-4.8); MEAN CELL VOLUME 73.3 FL (80.0-100.0); MEAN CORPUSCULAR HEMOGLOBIN 23.3 PG (27.0-34.0); MEAN CORPUSCULAR HGB CONC 31.7 % (32.0-36.0); MEAN PLATELET VOLUME 8.5 FL (7.0-11.0); MONOCYTE # 0.3 TH/MM3 (0-0.9); PLATELET COUNT 363 TH/MM3 (150-450); RED BLOOD COUNT 3.33 MIL/MM3 (4.00-5.30); RED CELL DISTRIBUTION WIDTH 21.4 % (11.6-17.2); WHITE BLOOD COUNT 4.5 TH/MM3 (4.0-11.0)
[2017-12-10 08:25] LABS: BICARBONATE 23.9 MEQ/L (21.0-32.0); CALCIUM 8.3 MG/DL (8.5-10.1); CREATININE 0.89 MG/DL (0.50-1.00)
[2017-12-10] MEDS: SODIUM CHLORIDE 0.9% FLUSH 10 ML FLUSH IV FLUSH SCH ×2 (09:00→20:55)
--- NOTE | 2017-12-10 09:47 | HHI.PR ---
Subjective Remarks Follow-up hematemesis. No further bleeding. Still does not want blood transfusion. She complains of weakness. According to grandmother, mother is asking about possible transfer to [facility]. Objective Vitals Vital Signs Date Time Temp Pulse Resp B/P (MAP) Pulse Ox O2 Delivery O2 Flow Rate FiO2 12/10/17 07:22 97.5 112 16 121/70 (87) 96 12/10/17 04:16 98.2 106 16 135/73 (93) 98 12/10/17 03:42 20 12/09/17 23:52 20 12/09/17 23:30 99.1 121 18 114/53 (73) 96 12/09/17 23:00 110 12/09/17 20:08 101.6 120 18 131/79 (96) 94 12/09/17 17:16 98.6 114 36 124/68 (86) 96 12/09/17 16:32 110 18 111/56 (74) 97 Room Air 12/09/17 14:30 107 18 107/58 (74) 97 Room Air 12/09/17 14:15 105 18 109/59 (76) 100 Room Air 12/09/17 14:00 107 18 98/56 (70) 99 Room Air 12/09/17 13:52 98.2 105 18 94/53 (67) 100 Room Air 12/09/17 11:20 120 23 133/74 (93) 98 12/09/17 10:36 97 Nasal Cannula 2.00 I/O 12/09/17 12/09/17 12/09/17 12/10/17 12/10/17 12/10/17 07:00 15:00 23:00 07:00 15:00 23:00 Intake Total 200 ml Balance 200 ml Other 200 ml # Voids 1 Result Diagram: 12/10/17 0600 12/10/17 06 Imaging Last Impressions Chest X-Ray 12/09/17518 Signed Impressions: CONCLUSION: No acute cardiopulmonary process. CT Angiography 12/09/17518 Signed Impressions: CONCLUSION: 1. No evidence of pulmonary embolism. 2. Mild bibasilar atelectasis, left greater than right.. Objective Remarks GENERAL: This is a well-nourished, well-developed patient, in no apparent distress. Looks weak slow to respond SKIN: No rashes, ecchymoses or lesions. Cool and dry. CARDIOVASCULAR: Regular rate and rhythm with 3/6 systolic ejection murmur RESPIRATORY: Clear to auscultation. Breath sounds equal bilaterally. No wheezes , rales, or rhonchi. GASTROINTESTINAL: Abdomen soft, right upper quadrant tenderness with no rebound or guarding normoactive bowel sounds MUSCULOSKELETAL: Extremities without clubbing, cyanosis, or edema. NEUROLOGICAL: Awake and alert to person place time and situation. Cranial nerves II through XII intact. Motor and sensory grossly within normal limits. Five out of 5 muscle strength in all muscle groups. Normal speech. Procedures EGD A/P Problem List: (1) PE (pulmonary thromboembolism) ICD Code: I26.99 - Other pulmonary embolism without acute cor pulmonale Assessment and Plan 1. Hematemesis with anorexia and associated abdominal pain. Status post dilatation/EGD. She has transaminitis. CT scan showed unremarkable liver. Hepatitis panel is unremarkable. Will repeat liver function test today. Avoid hepatotoxins. Further management per GI. GI recommended holding Eliquis for now until further evaluation. 2. History of pulmonary embolism - consideration restarting Eliquis when cleared by GI. 3. Acute on chronic anemia the patient on chronic anticoagulation-patient declined transfusion today we will repeat another hemoglobin in the morning to evaluate for stability. 4. Multiple medical conditions of asthma and hypothyroidism DVT prophylaxis - SCDs Consult physical therapy Harono Leroy MD December 10, 2017 09:47
[2017-12-10] MEDS: SERTRALINE HCL 50 MG TAB PO SCH (10:09)
--- NOTE | 2017-12-10 17:08 | HHI.GIFU ---
Subjective Remarks Pt still with chest pain "it hurts to swallow", no bleeding reported, no nausea or vomiting, she is agreeing to blood transfusion, states she never said that she didn't want blood. (Ly Harris) Objective Vitals I&O Vital Signs Date Time Temp Pulse Resp B/P (MAP) Pulse Ox O2 Delivery O2 Flow Rate FiO2 12/10/17 16:36 97.7 119 18 120/76 (91) 100 12/10/17 12:23 97.6 105 15 109/70 (83) 99 12/10/17 07:22 97.5 112 16 121/70 (87) 96 12/10/17 04:16 98.2 106 16 135/73 (93) 98 12/10/17 03:42 20 12/09/17 23:52 20 12/09/17 23:30 99.1 121 18 114/53 (73) 96 12/09/17 23:00 110 12/09/17 20:08 101.6 120 18 131/79 (96) 94 12/09/17 17:16 98.6 114 36 124/68 (86) 96 I/O 12/09/17 12/09/17 12/09/17 12/10/17 12/10/17 12/10/17 07:00 15:00 23:00 07:00 15:00 23:00 Intake Total 200 ml 140 ml Balance 200 ml 140 ml Intake Oral 140 ml Other 200 ml # Voids 1 Laboratory Laboratory Tests Test 12/09/17 19:55 12/10/17 06:00 Hepatitis A IgM Antibody NONREACTIVE Hepatitis B Surface Antigen NONREACTIVE Hepatitis B Core IgM Antibody NONREACTIVE Hepatitis C IgG Antibody NONREACTIVE White Blood Count 4.5 Red Blood Count 3.33 Hemoglobin 7.7 Hematocrit 24.4 Mean Corpuscular Volume 73.3 Mean Corpuscular Hemoglobin 23.3 Mean Corpuscular Hemoglobin Concent 31.7 Red Cell Distribution Width 21.4 Platelet Count 363 Mean Platelet Volume 8.5 Neutrophils (%) (Auto) 81.0 Lymphocytes (%) (Auto) 10.3 Monocytes (%) (Auto) 7.0 Eosinophils (%) (Auto) 1.4 Basophils (%) (Auto) 0.3 Neutrophils # (Auto) 3.7 Lymphocytes # (Auto) 0.5 Monocytes # (Auto) 0.3 Eosinophils # (Auto) 0.1 Basophils # (Auto) 0.0 CBC Comment DIFF FINAL Differential Comment Blood Urea Nitrogen 18 Creatinine 0.89 Random Glucose 89 Calcium Level 8.3 Sodium Level 140 Potassium Level 4.1 Chloride Level 107 Carbon Dioxide Level 23.9 Anion Gap 9 Estimat Glomerular Filtration Rate 98 Date/Time Source Procedure Growth Status 12/09/17 05:30 Blood Peripheral Aerobic Blood Culture - Preliminary NO GROWTH IN 1 DAY Resulted 12/09/17 05:30 Blood Peripheral Anaerobic Blood Culture - Preliminary NO GROWTH IN 1 DAY Resulted Imaging Last Impressions Chest X-Ray 12/09/17518 Signed Impressions: CONCLUSION: No acute cardiopulmonary process. CT Angiography 12/09/17518 Signed Impressions: CONCLUSION: 1. No evidence of pulmonary embolism. 2. Mild bibasilar atelectasis, left greater than right.. Physical Exam HEENT: normocephalic; atraumatic; no jaundice. CHEST: Chest is clear to auscultation and percussion. CARDIAC: Regular rate and rhythm with no murmur gallop or rubs. ABDOMEN: Soft, nondistended, diffused tenderness, no hepatosplenomegaly; bowel sounds are present in all four quadrants. EXTREMITIES: No clubbing, cyanosis, or edema. SKIN: Normal; no rash; no jaundice. SOCIAL SERVICES ASSISTANT: No focal deficits; alert and oriented times three. (Ly Harris) Assessment and Plan Plan - Anemia/hematemesis- S/P EGD/dill on 12/09/17 ---> normal EGD, bx pending, hgb today 7.7 stable Reports hx of few days of hematemesis associated with diarrhea and abd pain but subsided and hasn't had any for few days, however was tender on physical exam Recent diagnosis of PE, on Eliquis. Denies previous hx of this, denies NSAIDs or alcohol intake.Pt is symptomatic, tachycardiac. - Anemia- seems to be chronic but worsening, hg on admission 7.3 was 9.3 on 11/30 , she reports heavy periods - Dysphagia/odynophagia, wt loss of 20 Lbs in past few weeks- Cont. to have difficulty swallowing Has been on diet that consist of apple sauce, fruits and soft diet. Stats pain locates to right chest with eating - Diffused abd pain- CT of A/P on november 28 showed moderate free fluid in the pelvis, bibasilar mild areas of consolidation or atelectasis being worse on the right. - Elevated LFTs- possible shocked liver, hepatitis panel negative, AST 126, ALT 55, ALP 162, denies alcohol intake - PABLO- likely due to above - Recent diagnosis of PE on Eliquis CT angiogram December 09 negative for PE. - Hx of Asthma per attending - EF 55-60%, possible bicuspid aortic valve with mild increased gradient across the valve Plan: - YANELIS - Await bx - Iron, Fe, folate, B12 - BS - Will order liver work up - Cont. to hold Eliquis for now - Monitor hh - Will transfuse one unit, pt states she is okay with blood products, this was discussed with nurse - Cont. PPI - consider AQUACULTURE AND FISHERIES PROFESSOR consult - Discussed colonoscopy with pt, would like to think about it , will let us know tomorrow - Supportive care - Pt seen and examined by Dr. Felder and myself and this note is written on his behalf. (Ly Harris) Physician Comments Patient seen and examined Agree with above Continue with current supportive care Monitor labs Consider CT of the neck and or chest if odynophagia persists (Obey Felder MD) Ly Harris December 10, 2017 17:08 Obey Felder MD December 10, 2017 19:41
[2017-12-10] MEDS ORDERED: SODIUM CHLOR 0.9% 250 ML INJ 250 ML IV ONE (17:15)
[2017-12-10 18:12] LABS: % SATURATION IRON PROFILE 8.3 % (20-50); IRON (FE) 13 MCG/DL (50-170); TOTAL IRON BINDING CAPACITY 157 MCG/DL (250-450)
[2017-12-10 18:38] LABS: FERRITIN 1230 NG/ML (8-252); FOLATE 11.1 NG/ML (3.1-17.5)
[2017-12-11] VITALS (11 sets, daily range): BP systolic 112–134; BP diastolic 58–86; PULSE 112–128; RESP 16–20; TEMP 97.8–98.5; O2SAT 96–99
[2017-12-11] MEDS: LEVOTHYROXINE SODIUM 25 MCG TAB PO SCH (04:21)
[2017-12-11] MEDS ORDERED: MORPHINE SULFATE 4 MG/ML INJ IV PUSH ONE (04:30)
[2017-12-11 07:55] LABS: AUTOMATED NEUTROPHIL # 5.7 TH/MM3 (1.8-7.7); BASOPHIL % 0.2 % (0.0-2.0); EOSINOPHIL # 0.1 TH/MM3 (0-0.4); EOSINOPHIL % 0.9 % (0.0-4.0); HEMATOCRIT 27.7 % (35.0-46.0); HEMOGLOBIN 8.9 GM/DL (11.6-15.3); LYMPH % 7.9 % (9.0-44.0); LYMPHOCYTE # 0.5 TH/MM3 (1.0-4.8); MEAN CELL VOLUME 74.7 FL (80.0-100.0); MEAN CORPUSCULAR HEMOGLOBIN 23.9 PG (27.0-34.0); MEAN PLATELET VOLUME 7.9 FL (7.0-11.0); MONO % 6.4 % (0.0-8.0); MONOCYTE # 0.4 TH/MM3 (0-0.9); NEUT % 84.6 % (16.0-70.0); PLATELET COUNT 324 TH/MM3 (150-450); RED CELL DISTRIBUTION WIDTH 22.1 % (11.6-17.2); WHITE BLOOD COUNT 6.8 TH/MM3 (4.0-11.0)
[2017-12-11 08:20] LABS: ALBUMIN 1.9 GM/DL (3.4-5.0); AST (GOT) 45 U/L (16-38); BICARBONATE 21.9 MEQ/L (21.0-32.0); BLOOD UREA NITROGEN 16 MG/DL (7-18); CALCIUM 8.6 MG/DL (8.5-10.1); CHLORIDE 106 MEQ/L (98-107); CREATININE 0.74 MG/DL (0.50-1.00); GLOMERULAR FILTRATION RATE 121 ML/MIN (>89); GLUCOSE,RANDOM 72 MG/DL (74-106); MAGNESIUM 1.7 MG/DL (1.5-2.5); SODIUM (NA) 141 MEQ/L (136-145)
[2017-12-11 08:21] LABS: ALT (GPT) 26 U/L (9-42)
[2017-12-11 08:23] LABS: ALKALINE PHOSPHATASE 124 U/L (45-117); TOTAL BILIRUBIN ADULT 0.5 MG/DL (0.2-1.0); TOTAL PROTEIN 7.2 GM/DL (6.4-8.2)
--- NOTE | 2017-12-11 08:38 | HHI.PR ---
Subjective Remarks Follow-up odynophagia. She continues to have pain upon swallowing with discomfort radiating to anterior chest. According to RN, patient seems to be malingering especially with her weakness. She appeared to be deconditioned however she has been witnessed to be moving all her extremities without difficulty Objective Vitals Vital Signs Date Time Temp Pulse Resp B/P (MAP) Pulse Ox O2 Delivery O2 Flow Rate FiO2 12/11/17 04:27 20 12/11/17 03:53 98.4 112 18 112/58 (76) 98 12/11/17 00:35 98.0 113 17 121/60 (80) 98 12/10/17 23:00 108 12/10/17 21:23 98.8 112 20 122/64 98 12/10/17 20:42 98.6 107 18 114/67 (83) 98 12/10/17 18:43 99.2 110 16 131/79 99 12/10/17 18:26 99.2 119 18 129/79 100 12/10/17 16:36 97.7 119 18 120/76 (91) 100 12/10/17 15:00 108 12/10/17 12:23 97.6 105 15 109/70 (83) 99 I/O 12/10/17 12/10/17 12/10/17 12/11/17 12/11/17 12/11/17 07:00 15:00 23:00 07:00 15:00 23:00 Intake Total 140 ml 980 ml Balance 140 ml 980 ml Intake Oral 140 ml 475 ml Packed Cells 400 ml Blood Product IV Normal Saline Flush 105 ml Result Diagram: 12/11/1730 12/11/17 0730 Objective Remarks GENERAL: This is a well-nourished, well-developed patient, in no apparent distress. Looks weak slow to respond SKIN: No rashes, ecchymoses or lesions. Cool and dry. CARDIOVASCULAR: Regular rate and rhythm with 3/6 systolic ejection murmur RESPIRATORY: Clear to auscultation. Breath sounds equal bilaterally. No wheezes , rales, or rhonchi. GASTROINTESTINAL: Abdomen soft, right upper quadrant tenderness with no rebound or guarding normoactive bowel sounds MUSCULOSKELETAL: Extremities without clubbing, cyanosis, or edema. NEUROLOGICAL: Awake and alert to person place time and situation. Cranial nerves II through XII intact. Motor and sensory grossly within normal limits. Five out of 5 muscle strength in all muscle groups. Normal speech. Procedures EGD A/P Problem List: (1) PE (pulmonary thromboembolism) ICD Code: I26.99 - Other pulmonary embolism without acute cor pulmonale Assessment and Plan 1. Hematemesis with anorexia and associated abdominal pain. Status post dilatation/EGD. She has transaminitis. CT scan showed unremarkable liver. Hepatitis panel is unremarkable. Repeat liver function test much improved workup in progress. Patient continues to have odynophagia. For barium swallow today. GI recommends neck/chest CT. Avoid hepatotoxins. Further management per GI. GI recommended holding Eliquis for now until further evaluation. 2. History of pulmonary embolism recently diagnosed consideration restarting Eliquis when cleared by GI. Repeat CTA negative 3. Acute on chronic anemia the patient on chronic anticoagulation-improved with blood transfusion 4. Multiple medical conditions of asthma and hypothyroidism 5. Deconditioning. PT recommends home care versus rehab. She is homeless DVT prophylaxis - SCDs Haroon Leroy MD December 11, 2017 08:38
[2017-12-11] MEDS: SODIUM CHLORIDE 0.9% FLUSH 10 ML FLUSH IV FLUSH SCH ×2 (10:24→21:00)
[2017-12-11] MEDS: SERTRALINE HCL 50 MG TAB PO SCH (10:24)
--- NOTE | 2017-12-11 10:29 | RADRPT ---
EXAM DATE: 12/11/2017 10:12 AM EDT AGE/SEX: 22 years / Female INDICATIONS: Weight loss. Chest and throat pain when swallowing. CLINICAL DATA: This is the patient's initial encounter. Patient reports that signs and symptoms have been present for 3 months and indicates a pain score of 9/10. MEDICAL/SURGICAL HISTORY: . Asthma. Blood clot. P.E. None. COMPARISON: No prior [facility] exams available for comparison. FLUORO TIME: 1.0 IMAGE COUNT: 8 FINDINGS: Air-contrast views of the hypopharynx demonstrate a normal mucosal surface without filling defect. R apid sequence images of the hypopharynx and cervical esophagus during the passage of barium demonstra te a normal swallowing function. No evidence of aspiration. Multiphasic examination of the esophagu s demonstrates no esophageal fold thickening, ulceration, or filling defect. The gastroesophageal ju nction is normal in configuration without evidence of hiatal hernia. There is no evidence of esophage al dysmotility. There is no evidence of any significant reflux. CONCLUSION: Unremarkable barium swallow. Electronically signed by: Yury Márquez MD 12/11/2017 10:28 AM EDT
--- NOTE | 2017-12-11 15:54 | HHI.GIFU ---
Subjective Remarks Patient's resting in the bed Complains of upper chest pain States she cannot eat her lunch but did eat all of her breakfast according to staff No diarrhea constipation or abdominal pain (Krystal Ortiz) Objective Vitals I&O Vital Signs Date Time Temp Pulse Resp B/P (MAP) Pulse Ox O2 Delivery O2 Flow Rate FiO2 12/11/17 12:21 120 12/11/17 11:28 98.0 115 20 130/70 (90) 99 12/11/17 09:10 98.5 123 20 119/72 (88) 96 12/11/17 08:27 121 12/11/17 04:27 20 12/11/17 03:53 98.4 112 18 112/58 (76) 98 12/11/17 00:35 98.0 113 17 121/60 (80) 98 12/10/17 23:00 108 12/10/17 21:23 98.8 112 20 122/64 98 12/10/17 20:42 98.6 107 18 114/67 (83) 98 12/10/17 18:43 99.2 110 16 131/79 99 12/10/17 18:26 99.2 119 18 129/79 100 12/10/17 16:36 97.7 119 18 120/76 (91) 100 I/O 12/10/17 12/10/17 12/10/17 12/11/17 12/11/17 12/11/17 07:00 15:00 23:00 07:00 15:00 23:00 Intake Total 140 ml 980 ml Balance 140 ml 980 ml Intake Oral 140 ml 475 ml Packed Cells 400 ml Blood Product IV Normal Saline Flush 105 ml # Voids 1 Laboratory Laboratory Tests Test 12/10/17 19:40 12/11/17 07:30 Ammonia 22 White Blood Count 6.8 Red Blood Count 3.70 Hemoglobin 8.9 Hematocrit 27.7 Mean Corpuscular Volume 74.7 Mean Corpuscular Hemoglobin 23.9 Mean Corpuscular Hemoglobin Concent 32.0 Red Cell Distribution Width 22.1 Platelet Count 324 Mean Platelet Volume 7.9 Neutrophils (%) (Auto) 84.6 Lymphocytes (%) (Auto) 7.9 Monocytes (%) (Auto) 6.4 Eosinophils (%) (Auto) 0.9 Basophils (%) (Auto) 0.2 Neutrophils # (Auto) 5.7 Lymphocytes # (Auto) 0.5 Monocytes # (Auto) 0.4 Eosinophils # (Auto) 0.1 Basophils # (Auto) 0.0 CBC Comment DIFF FINAL Differential Comment Blood Urea Nitrogen 16 Creatinine 0.74 Random Glucose 72 Total Protein 7.2 Albumin 1.9 Calcium Level 8.6 Magnesium Level 1.7 Alkaline Phosphatase 124 Aspartate Amino Transf (AST/SGOT) 45 Alanine Aminotransferase (ALT/SGPT) 26 Total Bilirubin 0.5 Sodium Level 141 Potassium Level 4.2 Chloride Level 106 Carbon Dioxide Level 21.9 Anion Gap 13 Estimat Glomerular Filtration Rate 121 Date/Time Source Procedure Growth Status 12/09/17 05:30 Blood Peripheral Aerobic Blood Culture - Preliminary NO GROWTH IN 2 DAYS Resulted 12/09/17 05:30 Blood Peripheral Anaerobic Blood Culture - Preliminary NO GROWTH IN 2 DAYS Resulted Imaging Last Impressions Barium Swallow X-Ray 12/11/17 0000 Signed Impressions: CONCLUSION: Unremarkable barium swallow. Chest X-Ray 12/09/17518 Signed Impressions: CONCLUSION: No acute cardiopulmonary process. CT Angiography 12/09/17518 Signed Impressions: CONCLUSION: 1. No evidence of pulmonary embolism. 2. Mild bibasilar atelectasis, left greater than right.. Physical Exam HEENT: normocephalic; atraumatic; no jaundice. Speech is clear CHEST: Chest is clear to CARDIAC: Regular rate and rhythm, no audible murmur ABDOMEN: Flat, soft, nondistended, no tenderness no hepatosplenomegaly; bowel sounds are present in all four quadrants. EXTREMITIES: No edema. SKIN: Normal; no rash; no jaundice. ENGINEER TECHNICAL STAFF: No focal deficits; alert and oriented times three. (Krystal Ortiz) Assessment and Plan Plan Anemia/hematemesis- S/P EGD/dill on 12/09/17 ---> normal EGD, bx pending, hgb today 7.7 stable Reports hx of few days of hematemesis associated with diarrhea and abd pain but subsided and hasn't had any for few days, however was tender on physical exam Recent diagnosis of PE, on Eliquis. Denies previous hx of this, denies NSAIDs or alcohol intake.Pt is symptomatic, tachycardiac. - Anemia- seems to be chronic but worsening, hg on admission 7.3 was 9.3 on 11/30 , she reports heavy periods - Dysphagia/odynophagia, wt loss of 20 Lbs in past few weeks- Cont. to have difficulty swallowing Has been on diet that consist of apple sauce, fruits and soft diet. Stats pain locates to right chest with eating - Diffused abd pain- CT of A/P on november 28 showed moderate free fluid in the pelvis, bibasilar mild areas of consolidation or atelectasis being worse on the right. - Elevated LFTs- possible shocked liver, hepatitis panel negative, AST 126, ALT 55, ALP 162, denies alcohol intake - PABLO- likely due to above - Recent diagnosis of PE on Eliquis CT angiogram December 09 negative for PE. - Hx of Asthma per attending - EF 55-60%, possible bicuspid aortic valve with mild increased gradient across the valve 12/11/2017 EGD done on admission normal findings. Patient ate a good breakfast but states that she is not able to eat any lunch but does states she is hungry. She notes upper chest pain possibly esophageal. Barium swallow normal, liver workup pending, hepatitis panel nonreactive vitamin B12 level 427 folate 11.1, total protein 7.2, 1.9 albumin, iron deficiency anemia noted from lab levels. Chief complaint is upper esophageal discomfort. But no dysphasia. hemoglobin 8.9, no obvious bleeding Plan: - YANELIS -EGD biopsies pending -Multivitamins with iron initiated, ferrous sulfate daily -Hold Eliquis - Monitor hemoglobin and other labs - PPI -Antiemetics -Colonoscopy could be done on an outpatient basis -Supportive care - Pt seen and examined by Dr. Felder and myself and this note is written on his behalf. (Krystal Ortiz) Physician Comments Patient seen and examined Agree with above Continue with current supportive care Monitor labs (Obey Felder MD) Krystal Ortiz December 11, 2017 15:54 Obey Felder MD December 11, 2017 23:11
[2017-12-11] MEDS: MULTIVITAMINS/IRON/MINERALS CHEWABLE TAB CHEW SCH (16:53)
[2017-12-11] MEDS: FERROUS SULFATE 325 MG (65 MG ELEMENTAL IRON) TAB PO SCH (16:53)
[2017-12-12] VITALS (13 sets, daily range): BP systolic 111–130; BP diastolic 57–74; PULSE 68–118; RESP 15–20; TEMP 97.9–99.8; O2SAT 94–100
[2017-12-12] MEDS: LEVOTHYROXINE SODIUM 25 MCG TAB PO SCH (06:06)
--- NOTE | 2017-12-12 07:51 | EKG ---
Date Performed: 12/12/2017 Time Performed: 05:48:57 PTAGE: 22 years EKG: SINUS TACHYCARDIA NONSPECIFIC T-WAVE ABNORMALITY ABNORMAL RHYTHM ECG NO PREVIOUS TRACING DOCTOR: Jason Gill Interpretating Date/Time 12/12/2017 07:49:58
--- NOTE | 2017-12-12 08:42 | HHI.FF ---
Face to Face Verification Diagnosis: (1) PE (pulmonary thromboembolism) (2) Chest pain (3) Anemia Physical Therapy Order: Evaluate and Treat, Improve ambulation, Strength and gait training Home Health Nursing Order: Medical education Signs/symptoms of disease process Medication education-adverse effect Nursing assessment with vital signs I have seen patient Aubrey Wetzel on 12/12/17. My clinical findings support the need for the requested home health care services because: Deconditioned w/ increased weakness I certify that my clinical findings support that this patient is homebound because: Unsafe to leave home unassisted Haroon Leroy MD December 12, 2017 08:42
[2017-12-12] MEDS ORDERED: WALKER WHEELS/F1 MIS (08:43)
--- NOTE | 2017-12-12 08:48 | HHI.PR ---
Subjective Remarks Follow-up odynophagia. Continues to have chest pain whenever she swallows. Telemetry shows mild sinus tachycardia denies palpitations and shortness of breath. Objective Vitals Vital Signs Date Time Temp Pulse Resp B/P (MAP) Pulse Ox O2 Delivery O2 Flow Rate FiO2 12/12/17 08:14 110 12/12/17 07:40 98.3 116 18 118/61 (80) 98 12/12/17 04:36 99.8 112 16 113/57 (75) 97 12/12/17 04:00 107 12/12/17 00:09 99.0 118 16 130/74 (92) 94 12/12/17 00:00 108 12/11/17 22:00 128 12/11/17 22:00 128 12/11/17 20:11 97.8 119 16 131/78 (95) 98 12/11/17 20:00 97.8 119 16 131/78 (95) 98 12/11/17 16:57 115 20 134/86 (102) 97 12/11/17 15:04 117 12/11/17 12:21 120 12/11/17 11:28 98.0 115 20 130/70 (90) 99 12/11/17 09:10 98.5 123 20 119/72 (88) 96 I/O 12/11/17 12/11/17 12/11/17 12/12/17 12/12/17 12/12/17 07:00 15:00 23:00 07:00 15:00 23:00 # Voids 1 1 Result Diagram: 12/11/1730 12/11/17729 Imaging Last Impressions Barium Swallow X-Ray 12/11/17 0000 Signed Impressions: CONCLUSION: Unremarkable barium swallow. Chest X-Ray 12/09/17518 Signed Impressions: CONCLUSION: No acute cardiopulmonary process. CT Angiography 12/09/17518 Signed Impressions: CONCLUSION: 1. No evidence of pulmonary embolism. 2. Mild bibasilar atelectasis, left greater than right.. Objective Remarks GENERAL: This is a well-nourished, well-developed patient, in no apparent distress. Looks weak slow to respond SKIN: No rashes, ecchymoses or lesions. Cool and dry. CARDIOVASCULAR: Sinus tachycardia with 3/6 systolic ejection murmur RESPIRATORY: Clear to auscultation. Breath sounds equal bilaterally. No wheezes , rales, or rhonchi. Tender chest wall GASTROINTESTINAL: Abdomen soft, right upper quadrant tenderness with no rebound or guarding normoactive bowel sounds MUSCULOSKELETAL: Extremities without clubbing, cyanosis, or edema. NEUROLOGICAL: Awake and alert to person place time and situation. Cranial nerves II through XII intact. Motor and sensory grossly within normal limits. Five out of 5 muscle strength in all muscle groups. Normal speech. Procedures EGD A/P Problem List: (1) PE (pulmonary thromboembolism) ICD Code: I26.99 - Other pulmonary embolism without acute cor pulmonale Assessment and Plan 1. Hematemesis with anorexia and associated abdominal pain. Status post EGD with dilatation. Persistent odynophagia. Barium swallow unremarkable. Further management per GI. 2. She has transaminitis. CT scan showed unremarkable liver. Hepatitis panel is unremarkable. Repeat liver function test much improved workup in progress. Avoid hepatotoxins. Further management per GI. GI recommended holding Eliquis for now until further evaluation. 3. History of pulmonary embolism recently diagnosed consideration restarting Eliquis when cleared by GI. Repeat CTA negative 4. Acute on chronic anemia the patient on chronic anticoagulation-improved with blood transfusion 5. Sinus tachycardia likely multifactorial. TSH unremarkable. Echo with good ejection fraction. Repeat labs pending 6. Multiple medical conditions of asthma and hypothyroidism 7. Deconditioning. PT recommends home care versus rehab. DVT prophylaxis - SCDs Discharge Planning Dc when cleared by GI Haroon Leroy MD December 12, 2017 08:48
[2017-12-12] MEDS: MULTIVITAMINS/IRON/MINERALS CHEWABLE TAB CHEW SCH (09:53)
[2017-12-12] MEDS: FERROUS SULFATE 325 MG (65 MG ELEMENTAL IRON) TAB PO SCH (09:53)
[2017-12-12] MEDS: SERTRALINE HCL 50 MG TAB PO SCH (09:53)
[2017-12-12] MEDS: SODIUM CHLORIDE 0.9% FLUSH 10 ML FLUSH IV FLUSH SCH ×2 (09:53→20:51)
[2017-12-12 10:34] LABS: AUTOMATED NEUTROPHIL # 6.6 TH/MM3 (1.8-7.7); BASOPHIL % 0.6 % (0.0-2.0); EOSINOPHIL % 0.4 % (0.0-4.0); HEMATOCRIT 25.6 % (35.0-46.0); HEMOGLOBIN 8.9 GM/DL (11.6-15.3); LYMPH % 6.4 % (9.0-44.0); LYMPHOCYTE # 0.5 TH/MM3 (1.0-4.8); MEAN CELL VOLUME 72.8 FL (80.0-100.0); MEAN CORPUSCULAR HEMOGLOBIN 25.4 PG (27.0-34.0); MEAN CORPUSCULAR HGB CONC 34.8 % (32.0-36.0); MEAN PLATELET VOLUME 7.7 FL (7.0-11.0); MONO % 5.6 % (0.0-8.0); MONOCYTE # 0.4 TH/MM3 (0-0.9); PLATELET COUNT 284 TH/MM3 (150-450); RED BLOOD COUNT 3.51 MIL/MM3 (4.00-5.30); RED CELL DISTRIBUTION WIDTH 22.4 % (11.6-17.2); WHITE BLOOD COUNT 7.6 TH/MM3 (4.0-11.0)
[2017-12-12 11:01] LABS: CALCIUM 8.6 MG/DL (8.5-10.1); CREATININE 0.68 MG/DL (0.50-1.00); MAGNESIUM 1.5 MG/DL (1.5-2.5)
--- NOTE | 2017-12-12 11:50 | HHI.GIFU ---
Subjective Remarks Pt in bedside chair States still not feeling well today Continued dysphagia with both liquids and solids Also complaining of odynophagia Denies abdominal pain (Teresita Domínguez) Objective Vitals I&O Vital Signs Date Time Temp Pulse Resp B/P (MAP) Pulse Ox O2 Delivery O2 Flow Rate FiO2 12/12/17 08:14 110 12/12/17 07:40 98.3 116 18 118/61 (80) 98 12/12/17 04:36 99.8 112 16 113/57 (75) 97 12/12/17 04:00 107 12/12/17 00:09 99.0 118 16 130/74 (92) 94 12/12/17 00:00 108 12/11/17 22:00 128 12/11/17 22:00 128 12/11/17 20:11 97.8 119 16 131/78 (95) 98 12/11/17 20:00 97.8 119 16 131/78 (95) 98 12/11/17 16:57 115 20 134/86 (102) 97 12/11/17 15:04 117 12/11/17 12:21 120 I/O 12/11/17 12/11/17 12/11/17 12/12/17 12/12/17 12/12/17 07:00 15:00 23:00 07:00 15:00 23:00 # Voids 1 1 Laboratory Laboratory Tests Test 12/12/17 10:20 White Blood Count 7.6 Red Blood Count 3.51 Hemoglobin 8.9 Hematocrit 25.6 Mean Corpuscular Volume 72.8 Mean Corpuscular Hemoglobin 25.4 Mean Corpuscular Hemoglobin Concent 34.8 Red Cell Distribution Width 22.4 Platelet Count 284 Mean Platelet Volume 7.7 Neutrophils (%) (Auto) 87.0 Lymphocytes (%) (Auto) 6.4 Monocytes (%) (Auto) 5.6 Eosinophils (%) (Auto) 0.4 Basophils (%) (Auto) 0.6 Neutrophils # (Auto) 6.6 Lymphocytes # (Auto) 0.5 Monocytes # (Auto) 0.4 Eosinophils # (Auto) 0.0 Basophils # (Auto) 0.0 CBC Comment DIFF FINAL Differential Comment Blood Urea Nitrogen 13 Creatinine 0.68 Random Glucose 95 Calcium Level 8.6 Magnesium Level 1.5 Sodium Level 139 Potassium Level 3.8 Chloride Level 103 Carbon Dioxide Level 29.0 Anion Gap 7 Estimat Glomerular Filtration Rate 133 Date/Time Source Procedure Growth Status 12/09/17 05:30 Blood Peripheral Aerobic Blood Culture - Preliminary NO GROWTH IN 3 DAYS Resulted 12/09/17 05:30 Blood Peripheral Anaerobic Blood Culture - Preliminary NO GROWTH IN 3 DAYS Resulted Imaging Last Impressions Barium Swallow X-Ray 12/11/17 0000 Signed Impressions: CONCLUSION: Unremarkable barium swallow. Chest X-Ray 12/09/17518 Signed Impressions: CONCLUSION: No acute cardiopulmonary process. CT Angiography 12/09/17518 Signed Impressions: CONCLUSION: 1. No evidence of pulmonary embolism. 2. Mild bibasilar atelectasis, left greater than right.. Physical Exam HEENT: normocephalic; atraumatic CHEST: Even/unlabored CARDIAC: RRR ABDOMEN: Soft, nondistended, nontender, bowel sounds active EXTREMITIES: No edema. SKIN: Normal; no rash; no jaundice. MEETING FACILITATOR: Alert and oriented times three. (Teresita Domínguez) Assessment and Plan Plan Assessment - Dysphagia/odynophagia with reported weight loss of 20 pounds in the past few weeks. Barium swallow normal EGD 12/09 --> Normal. Esophageal biopsy taken, pending. - Anemia- microcytic, hypochromic Iron panel reveals iron deficiency Reports of hematemesis and diarrhea prior to admission S/P 1 U PRBCs, H/H has remained stable - Elevated LFTs- denies family history and personal history of liver issues. Denies ETOH. Hepatitis panel negative. CT abdomen and pelvis W IV contrast 11/28 --> Moderate free fluid in the pelvis. Bibasilar mild areas of consolidation or atelectasis being worse on the right. - Recent history of PE- Pt on Eliquis- DCd for EGD Plan: CT neck Liver work up pending Monitor H/H OK to restart Eliquis EGD biopsy pending Further recommendations based on findings of above Pt has been seen and examined by myself and Dr. Carvajal and this note is written on his behalf (Teresita Domínguez) Physician Comments Seen and examined with [employer], still complaining of dysphagia. Ct ordered , biopsies-p. ? barium swallow study if ct -ve (Ghassan Carvajal MD) Teresita Domínguez December 12, 2017 11:50 Ghassan Carvajal MD December 12, 2017 15:19
[2017-12-12] MEDS: APIXABAN 5 MG TABLET PO SCH ×2 (14:24→20:51)
[2017-12-12] MEDS ORDERED: IOHEXOL 350 MG/ML 10 ML VIAL (for RAD DIAG) IVCONTRAST ONE (15:34)
--- NOTE | 2017-12-12 15:55 | RADRPT ---
EXAM DATE: 12/12/2017 3:44 PM EDT AGE/SEX: 22 years / Female INDICATIONS: Dysphagia CLINICAL DATA: This is the patient's initial encounter. Patient reports that signs and symptoms have been present for 1 day and indicates a pain score of 5/10. MEDICAL/SURGICAL HISTORY: Hypothyroidism. Cardiovascular disease. Hypertension. Pulmonary emboli sm, asthma, anemia None. RADIATION DOSE: 13.56 CTDI (mGy) COMPARISON: No prior [facility] exams available for comparison. TECHNIQUE: Helical acquisition was performed using a multirow detector CT scanner during the adminis tration of 71 ml Omnipaque 350 (iohexol) nonionic water-soluble contrast as a single exam dose. Usi ng automated exposure control and adjustment of the mA and/or kV according to patient size, radiation dose was kept as low as reasonably achievable to obtain optimal diagnostic quality images. FINDINGS: No neck mass identified. No airway obstructing lesions or foreign bodies. No cervical adenopathy is i dentified. No abnormal enhancing lesions. Carotid arteries and venous structures appear patent. No so ft tissue swelling or loculated fluid collections. Visualized paranasal sinuses are clear. CONCLUSION: 1. Unremarkable CT neck. Electronically signed by: Navi Barrow MD 12/12/2017 3:54 PM EDT
[2017-12-13] VITALS (8 sets, daily range): BP systolic 103–120; BP diastolic 57–66; PULSE 105–134; RESP 16–24; TEMP 97.9–98.8; O2SAT 95–97
[2017-12-13] MEDS: LEVOTHYROXINE SODIUM 25 MCG TAB PO SCH (05:41)
[2017-12-13] MEDS: MULTIVITAMINS/IRON/MINERALS CHEWABLE TAB CHEW SCH (09:18)
[2017-12-13] MEDS: SODIUM CHLORIDE 0.9% FLUSH 10 ML FLUSH IV FLUSH SCH ×2 (09:18→21:24)
[2017-12-13] MEDS: APIXABAN 5 MG TABLET PO SCH ×2 (09:19→21:24)
[2017-12-13] MEDS: FERROUS SULFATE 325 MG (65 MG ELEMENTAL IRON) TAB PO SCH (09:19)
[2017-12-13] MEDS: ACETAMINOPHEN/HYDROcodone 325 MG/7.5 MG TAB PO PRN (09:19)
[2017-12-13] MEDS: SERTRALINE HCL 50 MG TAB PO SCH (09:19)
--- NOTE | 2017-12-13 09:56 | HHI.PR ---
Subjective Remarks Follow-up odynophagia. Patient reporting right-sided chest pain with swallowing anything, including saliva. She denies worsening of the pain with deep breaths. She does report tenderness to palpation on the right side of the chest. States that she has lost 20 pounds because she is unable to eat due to the pain. Objective Vitals Vital Signs Date Time Temp Pulse Resp B/P (MAP) Pulse Ox O2 Delivery O2 Flow Rate FiO2 12/13/17 07:28 98.4 115 24 117/63 (81) 97 12/13/17 04:16 98.1 117 17 111/62 (78) 96 12/12/17 23:05 98.6 107 16 113/60 (77) 98 12/12/17 23:00 68 12/12/17 19:50 98.5 112 15 121/70 (87) 100 12/12/17 17:08 97.9 97 20 111/63 (79) 98 12/12/17 16:02 104 12/12/17 12:55 98.2 100 20 120/68 (85) 98 12/12/17 11:46 112 I/O 12/12/17 12/12/17 12/12/17 12/13/17 12/13/17 12/13/17 07:00 15:00 23:00 07:00 15:00 23:00 Intake Total 120 ml 100 ml Balance 120 ml 100 ml Intake Oral 120 ml 100 ml # Voids 2 Result Diagram: 12/12/17 1020 12/12/17 1020 Imaging Last Impressions Neck CT 12/12/17 0000 Signed Impressions: CONCLUSION: 1. Unremarkable CT neck. Barium Swallow X-Ray 12/11/17 0000 Signed Impressions: CONCLUSION: Unremarkable barium swallow. Chest X-Ray 12/09/17518 Signed Impressions: CONCLUSION: No acute cardiopulmonary process. CT Angiography 12/09/17518 Signed Impressions: CONCLUSION: 1. No evidence of pulmonary embolism. 2. Mild bibasilar atelectasis, left greater than right.. Objective Remarks General: No acute distress. Sitting up in a chair. Heart: Tachycardic, 2-3/6 systolic murmur. Lungs: Clear to auscultation bilaterally. No wheezes, rales, or rhonchi. Breathing is nonlabored. Abdomen: Soft, nontender, nondistended. Extremities: No lower extremity edema. Psych: Alert and oriented. Flat affect. Neuro: Normal speech. No focal deficits noted. Procedures EGD Urinary Catheter: No Vascular Central Line Catheter: No A/P Problem List: (1) PE (pulmonary thromboembolism) ICD Code: I26.99 - Other pulmonary embolism without acute cor pulmonale Assessment and Plan 1. Odynophagia, hematemesis, anorexia: Patient reporting right-sided chest pain whenever she swallows. Appreciate GI recommendations. Status post EGD with dilatation. Barium swallow and CT of the neck are negative. Patient's nurse reports that the patient appears to be comfortable until someone goes in the room, at which time she begins to display discomfort. There is question whether the symptoms may be psychosomatic. Consult psychiatry. 2. Transaminitis: Imaging of the liver is unremarkable. Hepatitis panel is negative. LFTs are trending down. Avoid hepatotoxins. Appreciate GI recommendations. 3. Pulmonary embolism, recently diagnosed: Eliquis restarted. Repeat CTA of the chest is negative for PE. 4. Acute on chronic anemia: Improved with transfusion. 5. Sinus tachycardia: Likely multifactorial. Had recent cardiac workup. Follow-up as outpatient with cardiology. 6. Hypothyroidism: Continue Synthroid. 7. DVT prophylaxis: SCDs, Eliquis. Discharge Planning Pending psychiatry evaluation and GI clearance. Taz See MD December 13, 2017 09:56
--- NOTE | 2017-12-13 11:08 | HHI.GIFU ---
Subjective Remarks Pt with very flat affect She states still very painful swallowing I asked her if she was having any abdominal pain, she says "I don't know" (Teresita Domínguez) Objective Vitals I&O Vital Signs Date Time Temp Pulse Resp B/P (MAP) Pulse Ox O2 Delivery O2 Flow Rate FiO2 12/13/17 07:28 98.4 115 24 117/63 (81) 97 12/13/17 04:16 98.1 117 17 111/62 (78) 96 12/12/17 23:05 98.6 107 16 113/60 (77) 98 12/12/17 23:00 68 12/12/17 19:50 98.5 112 15 121/70 (87) 100 12/12/17 17:08 97.9 97 20 111/63 (79) 98 12/12/17 16:02 104 12/12/17 12:55 98.2 100 20 120/68 (85) 98 12/12/17 11:46 112 I/O 12/12/17 12/12/17 12/12/17 12/13/17 12/13/17 12/13/17 06:59 14:59 22:59 06:59 14:59 22:59 Intake Total 120 ml 100 ml Balance 120 ml 100 ml Intake Oral 120 ml 100 ml # Voids 2 Laboratory Date/Time Source Procedure Growth Status 12/09/17 05:30 Blood Peripheral Aerobic Blood Culture - Preliminary NO GROWTH IN 4 DAYS Resulted 12/09/17 05:30 Blood Peripheral Anaerobic Blood Culture - Preliminary NO GROWTH IN 4 DAYS Resulted Imaging Last Impressions Neck CT 12/12/17 0000 Signed Impressions: CONCLUSION: 1. Unremarkable CT neck. Barium Swallow X-Ray 12/11/17 0000 Signed Impressions: CONCLUSION: Unremarkable barium swallow. Chest X-Ray 12/09/17518 Signed Impressions: CONCLUSION: No acute cardiopulmonary process. CT Angiography 12/09/17518 Signed Impressions: CONCLUSION: 1. No evidence of pulmonary embolism. 2. Mild bibasilar atelectasis, left greater than right.. Physical Exam HEENT: normocephalic; atraumatic CHEST: Even/unlabored CARDIAC: RRR ABDOMEN: Soft, nondistended, nontender, bowel sounds active EXTREMITIES: No edema. SKIN: Normal; no rash; no jaundice. LINE SERVICE PERSON: Alert and oriented times three. (Teresita Domínguez) Assessment and Plan Plan Assessment - Dysphagia/odynophagia with reported weight loss of 20 pounds in the past few weeks. Barium swallow normal EGD 12/09 --> Normal. Esophageal biopsy taken, pending. CT neck 12/12 --> Unremarkable - Anemia- microcytic, hypochromic Iron panel reveals iron deficiency Reports of hematemesis and diarrhea prior to admission S/P 1 U PRBCs, H/H has remained stable - Elevated LFTs- denies family history and personal history of liver issues. Denies ETOH. Hepatitis panel negative. CT abdomen and pelvis W IV contrast 11/28 --> Moderate free fluid in the pelvis. Bibasilar mild areas of consolidation or atelectasis being worse on the right. - Recent history of PE- Pt on Eliquis- DCd for EGD (12/13) Pt reports continued painful swallowing. Seen by speech therapy who recommends regular solids and thin liquids. Discussed with Dr. See who has consulted psychiatry for possible psychosomatic reason for the symptoms. We will also consult ENT. LFTs trending down, liver work up pending. CT neck noted, included above. Esophageal biopsy still pending. Plan: Consult ENT Liver work up pending Monitor H/H OK for Eliquis from a GI standpoint EGD biopsy pending Not much to add from a GI standpoint, we will sign off, please reconsult as needed Have pt follow up with GI after DC regarding liver work up and esophageal biopsy Pt has been seen and examined by myself and Dr. Carvajal and this note is written on his behalf (Teresita Domínguez) Physician Comments Seen and examined with ONELIA clemens unremarkable so far. Nothing to add from gi standpoint. ENT consulted. Will sign off, reconsult as needed. Thank you (Ghasasn Carvajal MD) Teresita Domínguez December 13, 2017 11:08 Ghassan Carvajal MD December 13, 2017 13:08
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
[2017-12-13] MEDS ORDERED: PILL SPLITTER OTHER PRN (15:00)
[2017-12-13] MEDS ORDERED: PRAZOSIN HCL 1 MG CAP PO SCH (21:00)
[2017-12-14 00:14] VITALS: BP 115/56; PULSE 128; RESP 16; TEMP 98.9; O2SAT 96
[2017-12-14 03:44] VITALS: BP 112/53; PULSE 136; RESP 16; TEMP 99.3; O2SAT 96
[2017-12-14] MEDS: LEVOTHYROXINE SODIUM 25 MCG TAB PO SCH (06:16)
[2017-12-14 07:36] VITALS: PULSE 111
[2017-12-14 07:44] VITALS: BP 95/54; PULSE 104; RESP 18; TEMP 98.8; O2SAT 100
[2017-12-14] MEDS ORDERED: SERTRALINE HCL 50 MG TAB PO SCH (09:00)
[2017-12-14] MEDS: FERROUS SULFATE 325 MG (65 MG ELEMENTAL IRON) TAB PO SCH (09:13)
[2017-12-14] MEDS: APIXABAN 5 MG TABLET PO SCH (09:14)
[2017-12-14] MEDS: SODIUM CHLORIDE 0.9% FLUSH 10 ML FLUSH IV FLUSH SCH (09:14)
[2017-12-14] MEDS: MULTIVITAMINS/IRON/MINERALS CHEWABLE TAB CHEW SCH (09:14)
--- NOTE | 2017-12-14 11:03 | HHI.PR ---
Subjective Remarks Follow up for odynophagia, atypical chest pain. The patient seen with family at bedside. Accompanied by Dr. See. She reports continued diffuse anterior burning chest pain, worse after attempting to eat. She has been able to swallow her pills and liquids. Thoroughly explained findings on EGD, Neck CT, Chest CT, barium swallow; patient verbalized understanding. She agrees to try soft foods. She denies any shortness of breath, nausea/vomiting, or diarrhea. She has no other medical complaints. Objective Vitals Vital Signs Date Time Temp Pulse Resp B/P (MAP) Pulse Ox O2 Delivery O2 Flow Rate FiO2 12/14/17 07:44 98.8 104 18 95/54 (68) 100 12/14/17 07:36 111 12/14/17 03:44 99.3 136 16 112/53 (72) 96 12/14/17 00:14 98.9 128 16 115/56 (75) 96 12/13/17 23:05 121 12/13/17 20:04 98.8 134 16 120/57 (78) 97 12/13/17 15:26 98.2 121 24 103/58 (73) 95 12/13/17 15:16 117 12/13/17 11:14 97.9 124 24 106/66 (79) 96 I/O 12/13/17 12/13/17 12/13/17 12/14/17 12/14/17 12/14/17 06:59 14:59 22:59 06:59 14:59 22:59 Intake Total 100 ml Balance 100 ml Intake Oral 100 ml # Voids 2 Result Diagram: 12/12/17 1020 12/12/17 1020 Imaging Last Impressions Neck CT 12/12/17 0000 Signed Impressions: CONCLUSION: 1. Unremarkable CT neck. Barium Swallow X-Ray 12/11/17 0000 Signed Impressions: CONCLUSION: Unremarkable barium swallow. Chest X-Ray 12/09/17 0519 Signed Impressions: CONCLUSION: No acute cardiopulmonary process. CT Angiography 12/09/17518 Signed Impressions: CONCLUSION: 1. No evidence of pulmonary embolism. 2. Mild bibasilar atelectasis, left greater than right.. Objective Remarks GENERAL: Well-nourished, well-developed young thin female patient in [facility]. SKIN: Warm and dry. No rash. HEENT: Normocephalic. Atraumatic. Pupils equal and round. Mucous membranes pink and moist. NECK: Supple. Trachea midline. No palpable lymphadenopathy. CARDIOVASCULAR: Regular rate and rhythm. No murmur appreciated. Anterior chest wall mildly tender to palpation, worse at right anterior chest and clavicular region; without any obvious deformity. RESPIRATORY: No accessory muscle use. Clear to auscultation. Breath sounds equal bilaterally. GASTROINTESTINAL: Abdomen soft, non-tender, nondistended. Normoactive bowel sounds x4. MUSCULOSKELETAL: No obvious deformities. Extremities without clubbing, cyanosis , or edema. Active and passive ROM with bilateral shoulders and elbows; although patient initially hesitant secondary to reported pain. NEUROLOGICAL: Awake and alert. No obvious cranial nerve deficits. Motor grossly within normal limits. Moving all extremities spontaneously. Normal speech. PSYCHIATRIC: Anxious mood; insight and judgment normal. Procedures 12/09/17 - EGD unremarkable however esophagus dilated with size 14 Medications and IVs Current Medications Medications (Trade) Dose Ordered Sig/Yordan Route Start Time Stop Time Status Last Admin (NS Flush) 2 ml UNSCH PRN IV FLUSH 12/09/17 08:45 (NS Flush) 2 ml BID IV FLUSH 12/09/17 09:00 12/14/17 09:14 (Zofran Odt) 4 mg Q6H PRN PO 12/09/17 09:15 (Tylenol) 650 mg Q6H PRN PO 12/09/17 08:45 12/10/17 19:22 ([place] 5-325 Mg) 1 tab Q4H PRN PO 12/09/17 08:45 ([place] 7.5-325 Mg) 1 tab Q4H PRN PO 12/09/17 08:45 12/13/17 09:19 (Milk Of Magnesia Liq) 30 ml Q12H PRN PO 12/09/17 08:45 (Senokot) 17.2 mg Q12H PRN PO 12/09/17 08:45 (Dulcolax Supp) 10 mg DAILY PRN RECTAL 12/09/17 08:45 (Lactulose Liq) 30 ml DAILY PRN PO 12/09/17 08:45 (Flintstones Complete) 1 tab DAILY CHEW 12/11/17 16:00 12/14/17 09:14 (Ferrous Sulfate) 325 mg DAILY PO 12/11/17 16:00 12/14/17 09:13 (Eliquis) 5 mg BID PO 12/12/17 15:00 12/14/17 09:14 (Zoloft) 75 mg DAILY PO 12/14/17 09:00 12/14/17 09:13 (Minipress) 1 mg HS PO 12/13/17 21:00 12/13/17 21:24 (Pill Splitter) 1 ea UNSCH PRN OTHER 12/13/17 15:00 (Synthroid) 50 mcg DAILY@0600 PO 12/15/17 06:00 (Lopressor) 12.5 mg Q12HR PO 12/14/17 12:00 12/14/17 12:00 A/P Problem List: (1) PE (pulmonary thromboembolism) ICD Code: I26.99 - Other pulmonary embolism without acute cor pulmonale Assessment and Plan 22-year-old female with history of recent PE diagnosed 11/20 now on Eliquis, asthma, anemia, bicuspid aortic valve, hypothyroidism, presents with odynophagia and atypical chest/abdominal pains. Odynophagia, hematemesis, anorexia: Patient reporting right-sided chest pain whenever she swallows. -Repeat Chest CTA with no evidence of pulmonary embolism; CXR with cardiomegaly otherwise no acute findings -Consulted GI, s/p EGD that was mostly unremarkable except for dilatation; barium swallow and CT neck negative; GI signed off -Patient appears comfortable until provider enters the room on previous days ; suspect psychosomatic, consulted psychiatry who agrees possibly psychiatric component, increased Zoloft dose and started on Prazosin -Patient still reporting persistent symptoms, although appears very comfortable and swallowing medications without difficulty; discussed with radiology Dr. Hill to review chest CT; still no acute findings other than cardiomegaly -Reviewed prior records, patient had Echo 11/22 showed normal systolic function , EF 55-60%, poss bicuspid aortic valve; trace AR, mild ; she was evaluated by cardiology Dr. Melgar who recommended outpatient f/up -Thoroughly discussed all of the above findings with the patient and family at bedside, patient verbalized understanding, states she was never given a reason for her pain, she agrees to try soft diet and if tolerates, plans to go home -Recommended outpatient f/up with GI for biopsy results, and cardiology for bicuspid valve and cardiomegaly Transaminitis: Imaging of the liver is unremarkable. Hepatitis panel is negative. LFTs are trending down. Avoid hepatotoxins. GI signed off. Outpatient f/up with GI. Pulmonary embolism, recently diagnosed: Eliquis restarted, cleared by GI. Repeat CTA of the chest is negative for PE. Acute on chronic anemia: Improved with transfusion. Continue iron supplement. Sinus tachycardia: Likely multifactorial. Had recent cardiac workup with echocardiogram. Started on low dose metoprolol 12.5mg bid with hold parameters; discussed risks with the patient. Follow-up as outpatient with cardiology. Hypothyroidism: Continue Synthroid. TSH elevated, increased Synthroid dosing to 50mcg daily. Outpatient f/up with TSH/T4 in 6 weeks. DVT Prophylaxis: on Eliquis I spent 35 minutes [id number] with the patient or on the [place] discussing the patient's disposition, prognosis, and plan of care with her caregivers. Over half the time spent was devoted to counseling the patient regarding placement in coordinating care with caregivers and case management Discharge Planning Plan to discharge today if tolerates soft diet. See discharge summary. Arminda Lo PA-C December 14, 2017 11:03 am
[2017-12-14 11:38] VITALS: BP 118/72; PULSE 105; RESP 18; TEMP 98.7; O2SAT 100
[2017-12-14] MEDS ORDERED: PRAZ1 PO (11:38)
[2017-12-14] MEDS ORDERED: LEVO.05 PO (11:38)
[2017-12-14] MEDS ORDERED: FERR325T20 PO (11:38)
[2017-12-14] MEDS ORDERED: ZOLO50TA PO (11:38)
[2017-12-14] MEDS ORDERED: METO25TA3 PO (11:38)
--- NOTE | 2017-12-14 11:38 | HHI.DCPOC ---
Discharge Care Plan Diagnosis: (1) Dysphagia (2) Esophageal dilatation (3) Bicuspid aortic valve (4) Sinus tachycardia (5) Cardiomegaly (6) PTSD (post-traumatic stress disorder) (7) PE (pulmonary thromboembolism) (8) Anemia Goals to Promote Your Health * To prevent worsening of your condition and complications * To maintain your health at the optimal level Directions to Meet Your Goals Take your medications as prescribed Follow your dietary instruction Follow activity as directed Keep your appointments as scheduled Take your immunizations and boosters as scheduled If your symptoms worsen call your PCP, if no PCP go to Urgent Care Center or Emergency Room Smoking is Dangerous to Your Health. Avoid second hand smoke Call the 24-hour hour crisis hotline for domestic abuse at Arminda Lo PA-C December 14, 2017 11:38 am
[2017-12-14] MEDS ORDERED: METOPROLOL TARTRATE 25 MG TAB PO SCH (12:00)
[2017-12-14 12:58] LABS: ALPHA-1-ANTITRYPSIN 249 mg/dL (100 - 190)
--- NOTE | 2017-12-14 13:44 | HHI.PYPN ---
Subjective Remarks Patient seen and examined. Chart reviewed. Case discussed with nursing staff. Per nursing, patient takes medications fine without any complaints but complains of chest pain with food. Nurse notes that the location of this chest pain migrates. Patient has been no behavioral problem per nursing staff. On my examination today, the patient is considerably less withdrawn. Affect remains a little bit dysphoric. She denies any SI or HI. She denies AVH. She reports that she slept better last night with no nightmares. Denies side effects from medications. In particular, patient denies any symptoms of hypotension from prazosin. No new physical complaints. She did receive the referral list of trauma focused psychotherapists, and I have strongly encouraged her to follow up with 1 of these providers after discharge. Review of Systems Except as stated in HPI: all other systems reviewed are Neg Mental Status Examination Appearance: Appropriate Consciousness: Alert Orientation: Person, Place (At least) Motor Activity: Other (No abnormal motor movements noted) Speech: Unremarkable Language: Adequate Fund of Knowledge: Adequate Attention and Concentration: Adequate Memory: Unremarkable (Grossly intact on clinical exam) Mood: Other (Again somewhat dysphoric) Affect: Blunt (More reactive today) Thought Process & Associations: Intact, Logical Thought Content: Appropriate Hallucination Type: None Delusion Type: None Suicidal Ideation: No Suicidal Plan: No Suicidal Intention: No Homicidal Ideation: No Homicidal Plan: No Homicidal Intention: No Mental Status Exam Remarks Insight and judgment are perhaps fair Results Labs Test 12/13/17 17:23 Thyroid Stimulating Hormone 3rd Gen 5.930 uIU/ML Date/Time Source Procedure Growth Status 12/09/17 05:30 Blood Peripheral Aerobic Blood Culture - Final NO GROWTH IN 5 DAYS Complete 12/09/17 05:30 Blood Peripheral Anaerobic Blood Culture - Final NO GROWTH IN 5 DAYS Complete Labs reviewed. TSH somewhat elevated Vitals/IOs Vital Signs Date Time Temp Pulse Resp B/P (MAP) Pulse Ox O2 Delivery O2 Flow Rate FiO2 12/14/17 11:38 98.7 105 18 118/72 (87) 100 Assessment & Plan Problem List: (1) Post-traumatic stress disorder, chronic ICD Codes: F43.12 - Post-traumatic stress disorder, chronic Assessment & Plan Recommend continuing prazosin and Zoloft as presently ordered. She slept better with the prazosin and reports that she had no nightmares. Patient should follow up with outpatient mental health provider for trauma focused psychotherapy and further medication management. Patient continues to deny any suicidal or homicidal ideation. She does not meet the [place] act criteria at this time. Patient should return to psychiatric emergency room for any concerning psychiatric symptoms as part of a general safety plan. I will apprise Dr. Dobbins of the case when he returns tomorrow. Case d/w Dr. See. Justification for Cont. Inpt. . Dhruv Lr MD December 14, 2017 13:44
[2017-12-14 14:56] LABS: SMOOTH MUSCLE TOTAL AUTOABS Negative (Negative); TRANSGLUTAMINASE IGA AB <1.2 U/mL; TRANSGLUTAMINASE IGG AB 2.5 U/mL
[2017-12-14 16:06] VITALS: BP 121/71; PULSE 110; RESP 18; TEMP 99.7; O2SAT 98
[2017-12-14 17:52] LABS: CERULOPLASMIN 39 mg/dL (18-53)
[2017-12-14] MEDS: ACETAMINOPHEN/HYDROcodone 325 MG/7.5 MG TAB PO PRN (18:06)
[2017-12-15] MEDS ORDERED: LEVOTHYROXINE SODIUM 50 MCG TAB PO SCH (06:00)
--- NOTE | 2017-12-15 10:22 | HHI.DS ---
Discharge Summary Admission Date December 11, 2017 at 14:26 Discharge Date: December 14, 2017 Admitting Diagnosis chest pain; anemia; gastritis (1) Dysphagia ICD Code: R13.10 - Dysphagia, unspecified Diagnosis: Principal (2) PE (pulmonary thromboembolism) ICD Code: I26.99 - Other pulmonary embolism without acute cor pulmonale Diagnosis: Secondary (3) Esophageal dilatation ICD Code: K22.8 - Other specified diseases of esophagus Diagnosis: Secondary (4) Sinus tachycardia ICD Code: R00.0 - Tachycardia, unspecified Diagnosis: Secondary (5) Cardiomegaly ICD Code: I51.7 - Cardiomegaly Diagnosis: Secondary (6) Bicuspid aortic valve ICD Code: Q23.1 - Congenital insufficiency of aortic valve Diagnosis: Secondary (7) PTSD (post-traumatic stress disorder) ICD Code: F43.10 - Post-traumatic stress disorder, unspecified Diagnosis: Secondary (8) Hypothyroidism ICD Code: E03.9 - Hypothyroidism, unspecified Diagnosis: Secondary Procedures 12/09/17 - EGD unremarkable however esophagus dilated with size 14 Brief History - From Admission 22-year-old female who was recently diagnosed with a pulmonary embolism back in November 20 currently on Eliquis was another readmission recently for recurrent right-sided chest pain and suspected upper respiratory infection re- presents back to the emergency room with a history of 2-3 days of hematemesis, poor appetite associated with intermittent abdominal discomfort. Patient is not the best historian. During the previous hospitalization patient had a decrease in hemoglobin and did receive a blood transfusion. At this time, patient declined having a blood transfusion and would prefer to repeat another blood count tomorrow morning prior to considering receiving a transfusion. He has she denies any unusual oral food intake. She denies any diarrhea associated with the nausea and poor appetite. She is not sure if she has had seen blood in the stools or black tarry stools. She denies symptoms of dysuria or frequency urgency. She reports she completed her menstrual cycle last week and usually does have heavy menstrual cycles. She states this month is not more heavy than normal. CBC/BMP: 12/12/17 1020 12/12/17 1020 Significant Findings Laboratory Tests Test 12/13/17 17:23 Free Thyroxine 1.54 NG/DL (0.76-1.46) Thyroid Stimulating Hormone 3rd Gen 5.930 uIU/ML (0.358-3.740) Imaging Last Impressions Neck CT 12/12/17 0000 Signed Impressions: CONCLUSION: 1. Unremarkable CT neck. Barium Swallow X-Ray 12/11/17 0000 Signed Impressions: CONCLUSION: Unremarkable barium swallow. Chest X-Ray 12/09/17 05 Signed Impressions: CONCLUSION: No acute cardiopulmonary process. CT Angiography 12/09/17518 Signed Impressions: CONCLUSION: 1. No evidence of pulmonary embolism. 2. Mild bibasilar atelectasis, left greater than right.. PE at Discharge GENERAL: Well-nourished, well-developed young thin female patient in [facility]. SKIN: Warm and dry. No rash. HEENT: Normocephalic. Atraumatic. Pupils equal and round. Mucous membranes pink and moist. NECK: Supple. Trachea midline. No palpable lymphadenopathy. CARDIOVASCULAR: Regular rate and rhythm. No murmur appreciated. Anterior chest wall mildly tender to palpation, worse at right anterior chest and clavicular region; without any obvious deformity. RESPIRATORY: No accessory muscle use. Clear to auscultation. Breath sounds equal bilaterally. GASTROINTESTINAL: Abdomen soft, non-tender, nondistended. Normoactive bowel sounds x4. MUSCULOSKELETAL: No obvious deformities. Extremities without clubbing, cyanosis , or edema. Active and passive ROM with bilateral shoulders and elbows; although patient initially hesitant secondary to reported pain. NEUROLOGICAL: Awake and alert. No obvious cranial nerve deficits. Motor grossly within normal limits. Moving all extremities spontaneously. Normal speech. PSYCHIATRIC: Anxious mood; insight and judgment normal. Hospital Course 22-year-old female with history of recent PE diagnosed 58 now on Eliquis, asthma, anemia, bicuspid aortic valve, hypothyroidism, presents with odynophagia and atypical chest/abdominal pains. Odynophagia, hematemesis, anorexia: Patient reporting right-sided chest pain whenever she swallows. -Repeat Chest CTA with no evidence of pulmonary embolism; CXR with cardiomegaly otherwise no acute findings -Consulted GI, s/p EGD that was mostly unremarkable except for dilatation; barium swallow and CT neck negative; GI signed off -Patient appears comfortable until provider enters the room on previous days ; suspect psychosomatic, consulted psychiatry who agrees possibly psychiatric component, increased Zoloft dose and started on Prazosin for nightmares -Patient still reporting persistent symptoms, although appears very comfortable and swallowing medications without difficulty; discussed with radiology Dr. Hill to review chest CT; still no acute findings other than cardiomegaly -Reviewed prior records, patient had Echo 11/22 showed normal systolic function , EF 55-60%, poss bicuspid aortic valve; trace AR, mild ; she was evaluated by cardiology Dr. Melgar who recommended outpatient f/up -Thoroughly discussed all of the above findings with the patient and family at bedside, patient verbalized understanding, states she was never given a reason for her pain, she agrees to try soft diet and if tolerates, plans to go home -Recommended outpatient f/up with GI for biopsy results, and cardiology Dr. Melgar for bicuspid valve and cardiomegaly -Patient tolerated soft diet, discharged home. Transaminitis: Imaging of the liver is unremarkable. Hepatitis panel is negative. LFTs are trending down. Avoid hepatotoxins. GI signed off. Outpatient f/up with GI. Pulmonary embolism, recently diagnosed: Eliquis restarted, cleared by GI. Repeat CTA of the chest is negative for PE. Acute on chronic anemia: Improved with transfusion. Continue iron supplement. Sinus tachycardia: Likely multifactorial. Had recent cardiac workup with echocardiogram. Started on low dose metoprolol 12.5mg bid with hold parameters; discussed risks with the patient. Follow-up as outpatient with cardiology. Cardiomegaly with Bicuspid Aortic Valve: diagnosed on previous admission, Echo wnl, evaluated by cardiology Dr. Melgar at that time, recommended outpatient f /up. Discussed with the patient and family, verbalized understanding. Hypothyroidism: Continue Synthroid. TSH elevated, increased Synthroid dosing to 50mcg daily. Outpatient f/up with TSH/T4 in 6 weeks. Pt Condition on Discharge: Stable Discharge Disposition: Discharge Home Discharge Time: > 30 minutes Discharge Instructions DIET: Follow Instructions for: Heart Healthy Diet, Soft Diet Speech Therapy-Diet Recommends: Regular Activities you can perform: Regular-No Restrictions Follow up Referrals: Cardiology - 1 Week with Chi Melgar DO Gastroenterology - 1 Week with Ghassan Carvajal MD PCP Follow-up - 1 Week with Rell Chawla DO Psychiatry Adult - 1 Week with Hubert Franco Cl New Orders: TSH WITH REFLEX FREE T4 - 6 Weeks New Medications: Walker with Front Wheels (Walker with Front Wheels) 1 Mis Mis EA .XX DIRECTED, #1 0 Refills Ferrous Sulfate (Ferosul) 325 Mg (65 Mg Iron) Tablet 325 MG PO DAILY for anemia for 30 Days, #30 TAB 1 Refill Levothyroxine (Synthroid) 50 Mcg Tab 50 MCG PO DAILY@0600 for Thyroid, #30 TAB 1 Refill Metoprolol Tartrate (Metoprolol Tartrate) 25 Mg Tab 12.5 MG PO Q12HR for Regulate Heart Beat for 30 Days, #30 TAB 1 Refill Prazosin (Minipress) 1 Mg Cap 1 MG PO HS for Nightmares for 30 Days, #30 CAP 1 Refill Sertraline (Zoloft) 50 Mg Tab 75 MG PO DAILY for PTSD for 30 Days, #45 TAB 1 Refill Continued Medications: Apixaban (Eliquis) 5 Mg Tab 5 MG PO BID for Blood Clot Prevention, #60 TAB 0 Refills Discontinued Medications: Cefuroxime (Cefuroxime) 500 Mg Tab 500 MG PO Q12HR for Infection, #10 TAB Furosemide (Furosemide) 20 Mg Tab 20 MG PO DAILY for Blood Pressure Management, #30 TAB 0 Refills Levothyroxine (Levothyroxine) 25 Mcg Tab 25 MCG PO DAILY@0600 for Thyroid, #30 TAB Phenol (Antiseptic) (Chloraseptic) 1.4 % Spr 1 SPR PO DIRECTED Potassium Chloride ER (Klor-Con 8) 8 Meq Tab 8 MEQ PO DAILY for Electrolyte Replacement, #30 TAB 0 Refills Sertraline (Sertraline) 50 Mg Tab 50 MG PO DAILY for Anxiety, #30 TAB 0 Refills Additional Information I spent 35 minutes [id number] with the patient or on the salcedo discussing the patient's disposition, prognosis, and plan of care with her caregivers. Over half the time spent was devoted to counseling the patient regarding placement in coordinating care with caregivers and case management Arminda Lo PA-C December 15, 2017 10:22 am
[2017-12-15 19:53] LABS: MITOCHONDRIAL ABS 29.2 U (<=20.0)
[2017-12-16 18:25] LABS: ANA PATTERN DIFFUSE
== END 2017-12-14 22:07 | disposition home or self-care (01) | DRG 392 ==
LOC: NEPC 04:50 → NEDA 08:36 → NEPFCDU 16:58 → OBSVTOIN 12-11 14:26
PROVIDERS: ADMIT Family Medicine; ATTEND Family Medicine
PROC: 0D758ZZ Dilation of Esophagus, Via Natural or Artificial Opening Endoscopic (ICD-10-PCS; 2017-12-09)
PROC: 0DB58ZX Excision of Esophagus, Via Natural or Artificial Opening Endoscopic, Diagnostic (ICD-10-PCS; principal; 2017-12-09 13:15)
PROC: 30233N1 Transfusion of Nonautologous Red Blood Cells into Peripheral Vein, Percutaneous Approach (ICD-10-PCS; 2017-12-10)
DX: R13.10 Dysphagia, unspecified (principal); K92.0 Hematemesis; R63.0 Anorexia; J45.909 Unspecified asthma, uncomplicated; E03.9 Hypothyroidism, unspecified; D50.9 Iron deficiency anemia, unspecified; R00.0 Tachycardia, unspecified; K29.70 Gastritis, unspecified, without bleeding; F43.12 Post-traumatic stress disorder, chronic; Z79.01 Long term (current) use of anticoagulants; Z86.711 Personal history of pulmonary embolism
CPT/HCPCS: 36430; 70491; 71045; 71275; 74230; 80048; 80053; 80074; 80076; 82103; 82140; 82390; 82607; 82728; 82746; 83516; 83520; 83540; 83550; 83690; 83735; 84439; 84443; 84484; 84703; 85025; 85610; 85730; 86038; 86039; 86255; 86850; 86900; 86901; 86920; 87040; 88305; 93005; 96361; 96374; 96375; 96376; C1769; C9113; G0378; G8987-GP; G8988-GP; G8996-GN; G8997-GN; G8998-GN; J0131; J2270; J2765; J7030; J7040; J7050; P9016; Q9967